=== PATIENT | male | born 1950 | race Caucasian/White ===

== ENCOUNTER 2018-08-08 09:55 | Day surgery (SDC) | payer OTHER ==
[2018-08-03 11:11] VITALS: BMI 23.0
[~2018-08-08 09:55] MED LIST: LACTATED RINGERS 1,000 ML IV SCH; LIDOCAINE 1% 20 ML VIAL (10MG/ML) FOR IV START INTRADERMA PRN
[2018-08-08 10:21] VITALS: TEMP 97.9
[2018-08-08] MEDS ORDERED: PROPOFOL 10 MG/ML 20 ML VIAL IV ONE (10:21)
[2018-08-08] MEDS ORDERED: MIDAZOLAM 2 MG/2 ML VIAL ONE (10:21)
[2018-08-08] MEDS ORDERED: LIDOCAINE 1% INJ 10MG/ML (20 ML MDV) ONE (10:21)
--- NOTE | 2018-08-08 10:43 | P.PCN ---
Date of Procedure: 08/08/18 Procedure(s) Performed: Procedure: Total colonoscopy. Preoperative diagnosis: Screening for neoplasia, patient has history of polyps. Postoperative diagnosis: Diverticulosis with no evidence of acute diverticulitis , strictures, polyps or cancer. Preparation: HalfLytely prep. Sedation: Was provided by anesthesia. Brief clinical history: The patient is a 68-year-old male who is scheduled for this evaluation for screening for neoplasia because of history of polyps. His last exam was around 5 years ago. The patient has no abdominal complaints, bleeding or anemia. Procedure: With the patient on his left lateral decubitus position and after informed consent and adequate sedation, the perianal area was inspected and it did not show any fissures or fistulas. There were no masses felt on digital rectal examination. The Olympus CFH 190L video colonoscope was then inserted in the rectum in the usual fashion and advanced to the cecum. There were multiple diverticular orifices seen scattered along the length of the bowel wall more so on the left side with no evidence of acute diverticulitis or strictures. No polyps or tumors were seen. The mucosa appeared healthy. I retroflexed the endoscope in the rectum before the endoscope was withdrawn. The patient tolerated the procedure well. Plan: The patient was reassured. Discussed dietary measures. He will follow up with you as planned and I recommended repeat exam in 5 years.
[2018-08-08 10:44] VITALS: RESP 16
[2018-08-08 11:02] VITALS: BP 126/87; PULSE 72
== END 2018-08-08 11:40 | disposition home or self-care (01) ==
LOC: ORWHC2ENDO 09:55
DX: Z12.11 Encounter for screening for malignant neoplasm of colon (principal); K57.30 Diverticulosis of large intestine without perforation or abscess without bleeding; Z86.010 Personal history of colon polyps; I10 Essential (primary) hypertension; E78.5 Hyperlipidemia, unspecified; I25.10 Atherosclerotic heart disease of native coronary artery without angina pectoris; I25.2 Old myocardial infarction; Z95.5 Presence of coronary angioplasty implant and graft; F17.210 Nicotine dependence, cigarettes, uncomplicated; Z79.899 Other long term (current) drug therapy
CPT/HCPCS: J2250; J2001; J2704; G0105

== ENCOUNTER → 2019-07-28 | Outpatient (CLI) | payer OTHER ==
--- NOTE | 2019-08-02 12:31 | P.ARTDOP ---
Arterial Doppler LOWER EXTREMITY ARTERIAL DOPPLER: DATE OF SERVICE: 07/28/2019 Reason for study: Bilateral foot pain with walking. Doppler waveforms: Multiphasic throughout on the right and blunted but down to the posterior tibial on the left. With the dorsalis pedis being atypical. Pulse volume recording: Digital waveforms are severely blunted. Pressure gradients: Mild distal gradient on the right and across the knee on the left with moderate infrapopliteal gradient on the left. Ankle-brachial indices: 0.93 on the right and 0.7 on the left. Toe pressures: [] on the right, 49 on the left Impression: Either mild to moderate distal disease on the left and mild disease on the right. Possible vasospastic component. Clinical correlation recomm ended..
== END | disposition home or self-care (01) ==
LOC: RADUSWWP 07:55
DX: I73.9 Peripheral vascular disease, unspecified (principal); Z87.891 Personal history of nicotine dependence
CPT/HCPCS: 93923

== ENCOUNTER 2020-12-10 16:03 | Emergency (ER) | payer OTHER ==
[2020-12-10 16:11] VITALS: RESP 18
[2020-12-10] MEDS ORDERED: SODIUM CHLORIDE 0.9% 1,000 ML IV STA (16:27)
[2020-12-10] MEDS ORDERED: ALBUTEROL HFA INHALER INHALATION STA (16:27)
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
[2020-12-10 18:00] LABS: Basophils # (A) 0.1 k/uL (0-0.2); Basophils % (A) 1 %; Eosinophils % (A) 0 %; HCT 49.9 % (39.0-53.0); HGB 16.9 gm/dL (13.0-17.5); Lymphocytes # (A) 1.5 k/uL (1.0-4.8); Lymphocytes % (A) 17 %; MCH 28.8 pg (25.0-35.0); MCHC 33.8 g/dL (31.0-37.0); MCV 85.2 fL (80.0-100.0); Mean Platelet Volume 8.4; Monocytes # (A) 0.4 k/uL (0-1.0); Monocytes % (A) 5 %; Neutrophils # (A) 6.7 k/uL (1.3-7.7); Neutrophils % (A) 76 %; Platelet Count 219 k/uL (150-450); RBC 5.85 m/uL (4.30-5.90); RDW 14.2 % (11.5-15.5); WBC 8.8 k/uL (3.8-10.6)
[2020-12-10 18:08] LABS: Albumin 3.3 g/dL (3.5-5.0); Calcium 8.3 mg/dL (8.4-10.2); Magnesium 1.6 mg/dL (1.6-2.3); Potassium 4.6 mmol/L (3.5-5.1); Total Bilirubin 0.6 mg/dL (0.2-1.3); Total Protein 6.4 g/dL (6.3-8.2)
--- NOTE | 2020-12-10 18:14 | XR ---
EXAMINATION TYPE: XR chest 2V DATE OF EXAM: 12/10/2020 COMPARISON: 11/07/2014. HISTORY: Fever and positive Covid. TECHNIQUE: Frontal and lateral views of the chest are obtained. FINDINGS: There is mild to moderate perihilar and bibasilar streaky opacities, most notable in the l eft lung base. No significant pleural effusion, or pneumothorax seen. The cardiac silhouette size is within normal limits. The osseous structures are intact. IMPRESSION: Mild to moderate opacities, concerning for infiltrates.
[2020-12-10 18:18] LABS: Partial Thromboplastin Time 25.9 sec (22.0-30.0); Prothrombin Time 10.3 sec (9.0-12.0)
[2020-12-10] MEDS ORDERED: ACETAMINOPHEN TAB 500 MG TAB PO STA (18:18)
[2020-12-10] MEDS: SODIUM CHLORIDE 0.9% 500 ML 500 ML IV STA ×2 (18:22→18:25)
--- NOTE | 2020-12-10 19:37 | CT ---
EXAMINATION TYPE: CT angio chest DATE OF EXAM: 12/10/2020 7:22 PM COMPARISON: Same day radiographs. HISTORY: Elevated d-dimer. Covid +. CT DLP: 378.7 mGycm Automated exposure control for dose reduction was used. CONTRAST: CTA scan of the thorax is performed with IV Contrast, patient injected with 100 mL of Isovue 370, pul monary embolism protocol. MIP images are created and reviewed. FINDINGS: LUNGS: There is bilateral diffuse moderate patchy ground glass opacities with random pattern. There is no pleural effusion or pneumothorax seen. The tracheobronchial tree is patent. MEDIASTINUM: There is satisfactory enhancement of the pulmonary artery and its branches, there is no CT evidence for pulmonary embolism. There are no greater than 1 cm hilar or mediastinal lymph nodes. No pericardial effusion is seen. Scattered small mediastinal lymph nodes seen. OTHER: No additional significant abnormality is seen. IMPRESSION: DIFFUSE PATCHY GROUND GLASS OPACITIES, CONSISTENT WITH HISTORY OF COVID PNEUMONIA. NO ACUTE PE.
[2020-12-10] MEDS ORDERED: AZITHROMYCIN 500 MG TAB PO STA (20:19)
[2020-12-10 20:37] VITALS: BP 131/85; PULSE 72; TEMP 98.6
== END 2020-12-10 20:45 | disposition home or self-care (01) ==
LOC: EC 16:03
DX: J18.9 Pneumonia, unspecified organism (principal); J98.01 Acute bronchospasm; E78.5 Hyperlipidemia, unspecified; F32.9 Major depressive disorder, single episode, unspecified; I10 Essential (primary) hypertension; I25.2 Old myocardial infarction; Z79.82 Long term (current) use of aspirin; Z95.5 Presence of coronary angioplasty implant and graft; U07.1 COVID-19
CPT/HCPCS: 36415; 94640; 93005; 85379; 83880; 80053; 82550; 83605; 83735; 84484; 85025; 85610; 85730; 87040; 71046; 71275; 99285; 96360; Q9967

== ENCOUNTER 2021-05-12 08:58 | Inpatient (IN) | payer OTHER, MEDICARE ==
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
[2021-05-12 11:12] LABS: HCT 48.7 % (39.0-53.0); HGB 16.6 gm/dL (13.0-17.5); Hyperchromasia Slight; MCH 29.7 pg (25.0-35.0); MCV 87.3 fL (80.0-100.0); Mean Platelet Volume 9.3; Platelet Count 266 k/uL (150-450); RBC 5.57 m/uL (4.30-5.90); RDW 14.5 % (11.5-15.5); WBC 24.5 k/uL (3.8-10.6)
[2021-05-12 13:11] LABS: INR 1.1 (<1.2); Prothrombin Time 11.6 sec (9.0-12.0)
[2021-05-12 13:14] LABS: Albumin 3.8 g/dL (3.5-5.0); Calcium 9.2 mg/dL (8.4-10.2); Total Bilirubin 2.2 mg/dL (0.2-1.3); Total Protein 7.3 g/dL (6.3-8.2)
[2021-05-12 13:15] LABS: Potassium 5.2 mmol/L (3.5-5.1)
[2021-05-12] MEDS ORDERED: SODIUM CHLORIDE 0.9% 1,000 ML IV ONE ×2 (13:17→14:43)
[2021-05-12 13:21] LABS: Band Neutrophils % 10 %; Lymphocytes # (M) 0.49 k/uL (1.0-4.8); Monocytes # (M) 0.74 k/uL (0-1.0); Neutrophils % (M) 85 %; Nucleated Red Blood Cells 0 /100 WBC (0-0); Total Cells Counted 100
--- NOTE | 2021-05-12 13:48 | XR ---
EXAMINATION TYPE: XR chest 2V DATE OF EXAM: 05/12/2021 COMPARISON: 12/10/2020 HISTORY: Shortness of breath TECHNIQUE: Frontal and lateral views of the chest are obtained. FINDINGS: Scattered senescent parenchymal changes noted. Hyperinflation compatible with COPD. Increased basilar lung markings persist essentially unchanged. No definite focal pneumonia at this ti me. Correlate clinically however. Heart size is stable. Mediastinal structures are stable and grossly unremarkable. No evidence for hilar prominence. Degenerative changes dorsal spine. IMPRESSION: 1. Increased basilar lung markings persist essentially unchanged. No definite focal pneumonia at this time. Correlate clinically however.
[2021-05-12 13:52] LABS: Partial Thromboplastin Time 21.6 sec (22.0-30.0)
--- NOTE | 2021-05-12 14:51 | CT ---
EXAMINATION TYPE: CT angio lower extremity BILAT DATE OF EXAM: 05/12/2021 COMPARISON: None HISTORY: Peripheral vascular disease, ischemic changes. CT DLP: 1299.4 mGycm CONTRAST: CTA thoracic and abdominal aorta with 3-D reconstruction is performed and with IV Contrast, patient i njected with 80 mL of Isovue 370. Contrast CTA of the abdominal aorta with runoff of the lower extremity arterial system was performed from the lung bases through the ankles and feet. 3-D reconstruction imaging obtained at a separate wo rkstation. ABDOMINAL AORTA: Mild atheromatous change noted without evidence for aneurysm. No dissection seen. Iliac vessels: Mild atheromatous change common iliac, internal iliac and external iliac arteries with out evidence for hemodynamically significant stenosis. Femoral arteries: Common femoral arteries and profunda femoris arteries are patent bilaterally. Mild scattered atheromatous change noted. Popliteal arteries: Calcific plaque bilateral popliteal arteries left greater than right. Estimated 5 0% stenosis left popliteal artery. Below the knee arteries: There is moderate plaque disease at the bilateral trifurcations greater than 70% stenosis on the right and approximately 50% stenosis on the left. There is limited visualization of the anterior tibial, posterior tibial and peroneal arteries bilaterally. LIVER/GB- No significant abnormality is seen. PANCREAS- No significant abnormality is seen. SPLEEN- No significant abnormality is seen. ADRENALS- No significant abnormality is seen. KIDNEYS/BLADDER- No significant abnormality is seen. BOWEL- No Significant abnormality GENITAL ORGANS: No gross abnormality seen. LYMPH NODES- No greater than 1cm abdominal or pelvic lymph nodes are appreciated. OSSEOUS STRUCTURES- No significant abnormality is seen. OTHER- No significant abnormality is seen. IMPRESSION- 1. There is moderate plaque disease at the bilateral trifurcations greater than 70% stenosis on the r ight and approximately 50% stenosis on the left. There is limited visualization of the anterior tibia l, posterior tibial and peroneal arteries bilaterally.
[2021-05-12] MEDS ORDERED: NALOXONE 0.4 MG/ML 1 ML VIAL IV PRN (15:35)
[2021-05-12] MEDS ORDERED: ONDANSETRON 4 MG/2 ML VIAL IVP PRN (15:35)
[2021-05-12] MEDS ORDERED: ALBUTEROL NEBULIZED 2.5 MG/3 ML INHALATION PRN (16:05)
[2021-05-12 16:56] LABS: Appearance,Urine Clear (Clear); Bilirubin,Urine Negative (Negative); Blood,Urine Moderate (Negative); Color,Urine Yellow; Glucose,Urine (UA) Negative (Negative); Ketones,Urine Negative (Negative); Leukocyte Esterase,Urine Trace (Negative); Mucus,Urine Rare /hpf; Nitrite,Urine Negative (Negative); PH, Urine 5.5 (5.0-8.0); Protein,Urine 1+ (Negative); RBC,Urine 110 /hpf (0-5); Squamous Epithelial Cell,Urine <1 /hpf (0-4); Urobilinogen,Urine <2.0 mg/dL (<2.0); WBC,Urine 4 /hpf (0-5)
[2021-05-12 16:57] LABS: Specific Gravity,Urine >1.050 (1.001-1.035)
--- NOTE | 2021-05-12 17:25 | CT ---
EXAM: CT brain wo con CLINICAL HISTORY: Altered mental status. COMPARISON: None TECHNIQUE: Contiguous axial noncontrast images of the brain were obtained. Coronal and sagittal refor mats were generated and reviewed. Automated dose control was used for this exam. FINDINGS: There is mild opacification of the vessels, related to recent contrast administration. There is no evidence for intracranial hemorrhage, mass effect or midline shift. The white matter is g rossly preserved. Ventricular size and configuration is within normal limits for degree of parenchymal volume. The paranasal sinuses noted to moderate mucosal thickening of the left maxillary sinus. The mastoid a ir cells are clear. No evidence for calvarial fracture. IMPRESSION: No acute intracranial abnormality.
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
[2021-05-12 20:04] LABS: Basophils # (A) 0.1 k/uL (0-0.2); Basophils % (A) 0 %; Eosinophils % (A) 0 %; HCT 49.6 % (39.0-53.0); HGB 16.5 gm/dL (13.0-17.5); Lymphocytes # (A) 0.8 k/uL (1.0-4.8); Lymphocytes % (A) 4 %; MCH 29.7 pg (25.0-35.0); MCHC 33.3 g/dL (31.0-37.0); MCV 89.2 fL (80.0-100.0); Mean Platelet Volume 7.9; Monocytes # (A) 0.7 k/uL (0-1.0); Monocytes % (A) 3 %; Neutrophils # (A) 20.2 k/uL (1.3-7.7); Neutrophils % (A) 92 %; Platelet Count 240 k/uL (150-450); RBC 5.56 m/uL (4.30-5.90); RDW 14.3 % (11.5-15.5); WBC 21.8 k/uL (3.8-10.6)
[2021-05-12 20:16] LABS: African American GFR (CKD) 63 (>60 ml/min/1.73 sqM); Anion Gap 9 mmol/L; Blood Urea Nitrogen 22 mg/dL (9-20); Calcium 8.4 mg/dL (8.4-10.2); Carbon Dioxide 20 mmol/L (22-30); Chloride 101 mmol/L (98-107); Glucose 114 mg/dL (74-99); Non-African American GFR(CKD) 55 (>60 ml/min/1.73 sqM); Potassium 4.5 mmol/L (3.5-5.1); Sodium 130 mmol/L (137-145)
[2021-05-12] MEDS: SODIUM CHLORIDE 0.9% 1,000 ML IV SCH (20:27)
[2021-05-12 20:28] LABS: C Reactive Protein 19.6 mg/dL (<1.0)
[2021-05-12] MEDS: HYDROcodone/APAP 5-325MG 1 EACH TAB PO PRN (20:29)
[2021-05-12] MEDS ORDERED: ACYCLOVIR SODIUM 800 MG in SODIUM CHLORIDE 0.9% 100 ML IVPB SCH (20:30)
[2021-05-12] MEDS ORDERED: VANCOMYCIN IV PER PHARMACY 1 EACH MISC MISCELLANE PRN (21:59)
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
[2021-05-12] MEDS: FAMOTIDINE 20 MG/2 ML VIAL IV SCH (22:30)
[2021-05-13] MEDS: HYDROcodone/APAP 5-325MG 1 EACH TAB PO PRN ×2 (00:35→04:55)
[2021-05-13] MEDS: SODIUM CHLORIDE 0.9% 1,000 ML IV SCH ×5 (01:08→15:19)
[2021-05-13 01:11] LABS: Amphetamine Screen,Urine Detected (NotDetected); Barbiturate Screen,Urine Not Detected (NotDetected); Benzodiazepines Screen,Urine Not Detected (NotDetected); Cocaine Screen,Urine Not Detected (NotDetected); Methadone Screen, Urine Not Detected (NotDetected); Opiate Screen,Urine Not Detected (NotDetected); Oxycodone Screen, Urine Not Detected (NotDetected); Phencyclidine Screen,Urine Not Detected (NotDetected); Tricyclic Antidepressant,Urine Not Detected (NotDetected); Urn Cannabinoid Scrn Detected (NotDetected)
[2021-05-13] MEDS: VANCOMYCIN 1,500 MG in SODIUM CHLORIDE 0.9% 250 ML IVPB SCH ×2 (01:14→15:18)
--- NOTE | 2021-05-13 01:15 | US ---
EXAMINATION TYPE: US carotid duplex BILAT DATE OF EXAM: 05/13/2021 COMPARISON: CT CLINICAL HISTORY: ams, MCDONALD, PAD, rule out Carotid stenosis. AMS, MCDONALD per order. EXAM MEASUREMENTS: RIGHT: Peak Systolic Velocity (PSV) cm/sec ----- Right CCA: 51.4 ----- Right ICA: 66.0 ----- Right ECA: 67.7 ICA/CCA ratio: 1.3 RIGHT: End Diastole cm/sec ----- Right CCA: 0.0 ----- Right ICA: 6.6 ----- Right ECA: 7.3 LEFT: Peak Systolic Velocity (PSV) cm/sec ----- Left CCA: 59.2 ----- Left ICA: 82.0 ----- Left ECA: 45.3 ICA/CCA ratio: 1.4 LEFT: End Diastole cm/sec ----- Left CCA: 6.9 ----- Left ICA: 9.5 ----- Left ECA: 4.0 VERTEBRALS (direction of flow): Right Vertebral: Unable to visualize at this time. Left Vertebral: Antegrade Rhythm: Arrhythmia No elevated velocities at this time. Plaque seen within bilateral carotid bulbs. Exam is very limited due to constant patient movement. IMPRESSION: There is antegrade flow in the vertebral arteries. The images and measurements suggest less than 25% stenosis in both internal carotid arteries. Criteria for Assigning % of Stenosis / Diameter reduction (Estimation based on the indirect measurements of the internal carotid artery velocities (ICA PSV). 1. Normal (no stenosis)=ICA PSV < 125 cm/s: ratio < 2.0: ICA EDV<40 cm/s. 2. Less than 50% stenosis=ICA PSV < 125 cm/s: ratio < 2.0: ICA EDV<40 cm/s. 3. 50 to 69% stenosis=ICA PSV of 125 to 230 cm/s: ration 2.0 ? 4.0: ICA EDV 40-100 cm/s. 4. Greater than 70% stenosis to near occlusion= ICA PSV > 230 cm/s: ratio > 4.0: ICA EDV > 100 cm/s. 5. Near occlusion= ICA PSV velocities may be low or undetectable: variable ratio and ICA EDV. 6. Total occlusion=unable to detect flow.
[2021-05-13] MEDS ORDERED: LORazepam 2 MG/ML INJ IV PRN (01:48)
[2021-05-13] MEDS ORDERED: SODIUM CHLORIDE 0.9% 500 ML 500 ML IV ONE ×2 (01:50→05:00)
[2021-05-13] MEDS: ACYCLOVIR SODIUM 800 MG in SODIUM CHLORIDE 0.9% 100 ML IVPB SCH ×2 (05:13→15:18)
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
[2021-05-13 07:32] LABS: Glucose,Whole Blood 144 mg/dL (75-99)
[2021-05-13] MEDS: FAMOTIDINE 20 MG/2 ML VIAL IV SCH ×2 (08:42→20:27)
[2021-05-13 08:47] LABS: ABG Base Excess -3.2 mmol/L; ABG HCO3 20 mmol/L (21-25); ABG Oxygen Saturation 95.9 % (94-97); ABG PCO2 27 mmHg (35-45); ABG PH 7.48 (7.35-7.45); ABG PO2 70 mmHg (83-108); ABG TCO2 21 mmol/L (19-24); Allen Test Performed? Yes
--- NOTE | 2021-05-13 09:04 | XR ---
EXAMINATION TYPE: XR chest 1V DATE OF EXAM: 05/13/2021 COMPARISON: 05/12/2021 HISTORY: 70 year-old male shortness of breath TECHNIQUE: Single frontal view of the chest is obtained. FINDINGS: Heart upper limits of normal in size. Interstitial changes bilaterally and patchy mid and lower lung opacities. IMPRESSION: Interstitial densities and patchy mid and lower lung infiltrates. Correlate for multifocal pneumonia including COVID pneumonia. Correlate with fluid overload state to exclude pulmonary vascular congesti on. Other inflammatory etiologies such as hypersensitivity pneumonitis or interstitial pneumonitis ar e other possibilities.
[2021-05-13 09:18] LABS: Basophils % (A) 0 %; Eosinophils % (A) 0 %; HCT 50.5 % (39.0-53.0); HGB 17.2 gm/dL (13.0-17.5); Lymphocytes % (A) 4 %; MCH 30.4 pg (25.0-35.0); MCHC 34.1 g/dL (31.0-37.0); MCV 89.1 fL (80.0-100.0); Mean Platelet Volume 7.8; Monocytes # (A) 1.2 k/uL (0-1.0); Monocytes % (A) 5 %; Neutrophils # (A) 23.9 k/uL (1.3-7.7); Neutrophils % (A) 90 %; Platelet Count 188 k/uL (150-450); RBC 5.66 m/uL (4.30-5.90); RDW 14.6 % (11.5-15.5); WBC 26.6 k/uL (3.8-10.6)
[2021-05-13] MEDS ORDERED: DEXAMETHASONE SOD PHOSPHATE 10 MG/ML 1 ML VIAL IV STA (09:18)
[2021-05-13 09:34] LABS: ALT 22 U/L (4-49); African American GFR (CKD) 73 (>60 ml/min/1.73 sqM); Albumin 3.3 g/dL (3.5-5.0); Anion Gap 13 mmol/L; Blood Urea Nitrogen 22 mg/dL (9-20); Calcium 8.5 mg/dL (8.4-10.2); Carbon Dioxide 20 mmol/L (22-30); Chloride 101 mmol/L (98-107); Globulin 3.4 g/dL; Glucose 126 mg/dL (74-99); Non-African American GFR(CKD) 63 (>60 ml/min/1.73 sqM); Sodium 134 mmol/L (137-145); Total Bilirubin 1.8 mg/dL (0.2-1.3); Total Protein 6.7 g/dL (6.3-8.2)
[2021-05-13 09:46] LABS: AST 58 U/L (17-59); Alkaline Phosphatase 69 U/L (38-126); Magnesium 1.7 mg/dL (1.6-2.3)
[2021-05-13 09:50] LABS: Potassium 4.6 mmol/L (3.5-5.1)
[2021-05-13 09:53] LABS: Glucose,Whole Blood 125 mg/dL (75-99)
--- NOTE | 2021-05-13 11:29 | P.PCN ---
Date of Procedure: 05/13/21 Surgeon: Zia Harrison Condition: critical Disposition: ICU Description of Procedure: diagnosis rule out meningitis Description of procedure: The patient was seen in the ICU. The patient has mental status changes with fever and leukocytosis. Anesthesia services were asked to do an LP urgently to rule out meningitis. The patient used to be on Plavix however he is noncompliant as per his sister. The the date of last dose of Plavix is not known. The patient was placed in the left lateral decubitus position, skin was prepped with DuraPrep and draped in a sterile manner. Lidocaine 1% was used to numb the skin up at the entry site which was at the L4 5 level in the right paramedian approach. I used 22-gauge 3-1/2 inch Quincke spinal needle for this procedure. One attempt only as needed to get into the intrathecal space. The cerebrospinal fluid was flowing spontaneously. The cerebrospinal fluid looks cloudy. Opening pressure is high at 47 cm of water. 4 tests tubes were used to obtain 2 MLS of cerebrospinal fluid in each test tube. The spinal needle then was taken out and a Band-Aid was placed at the skin entry site. Patient tolerated procedure well.
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
[2021-05-13 12:14] LABS: Appearance,Urine Clear (Clear); Bilirubin,Urine Negative (Negative); Blood,Urine Moderate (Negative); Color,Urine Yellow; Glucose,Urine (UA) Negative (Negative); Ketones,Urine 1+ (Negative); Leukocyte Esterase,Urine Negative (Negative); Mucus,Urine Rare /hpf; Nitrite,Urine Negative (Negative); PH, Urine 5.5 (5.0-8.0); Protein,Urine 1+ (Negative); RBC,Urine 18 /hpf (0-5); Specific Gravity,Urine 1.018 (1.001-1.035); Squamous Epithelial Cell,Urine <1 /hpf (0-4); Urobilinogen,Urine <2.0 mg/dL (<2.0); WBC,Urine 2 /hpf (0-5)
--- NOTE | 2021-05-13 12:20 | P.PN ---
Subjective Progress Note Date: 05/13/21 Patient was seen for a follow-up. Patient now transferred to ICU. Patient had undergone lumbar puncture today. It was cloudy. Patient's blood culture also positive for gram-positive cocci. Patient continues to complain of severe headache. Patient continues to be encephalopathic. Objective - Vital Signs Vital signs: Vital Signs Temp 99.1 F 05/13/21 07:23 Pulse 87 05/13/21 08:20 Resp 36 H 05/13/21 08:20 BP 150/92 05/13/21 08:20 Pulse Ox 91 L 05/13/21 08:55 Intake & Output 05/12/21 05/13/21 05/13/21 18:59 06:59 18:59 Intake Total 1130 Output Total 768 1300 Balance 362 -1300 Weight 79.379 kg 79.379 kg Intake: Intake, IV Titration 1130 Amount Acyclovir Sodium 800 mg 250 In Sodium Chloride 0.9% 100 ml @ 100 mls/hr IVPB Q8H [facility] Rx#:[id number] Sodium Chloride 0.9% 500 100 ml 500 ml @ 999 mls/hr IV .Q31M ONE Rx#:[id number] cefTRIAXone 2 gm In 780 Sodium Chloride 0.9% 50 ml @ 100 mls/hr IVPB Q24HR [facility] Rx#:[id number] Output: Urine 600 1300 Post Void Residual 168 Other: Voiding Method Indwelling Catheter - Exam Patient is encephalopathic. Complains of severe headache. Passive head movement produces severe headache. - Labs CBC & Chem 7: 05/13/21 09:10 05/13/21 09:10 Labs: Abnormal Lab Results - Last 24 Hours (Table) 05/12/21 05/12/21 05/12/21 Range/Units 10:51 11:54 11:54 WBC (3.8-10.6) k/uL Neutrophils # (1.3-7.7) k/uL Neutrophils # (Manual) 23.20 H (1.3-7.7) k/uL Lymphocytes # (1.0-4.8) k/uL Lymphocytes # (Manual) 0.49 L (1.0-4.8) k/uL Monocytes # (0-1.0) k/uL APTT (22.0-30.0) sec ABG pH (7.35-7.45) ABG pCO2 (35-45) mmHg ABG pO2 (83-108) mmHg ABG HCO3 (21-25) mmol/L Sodium 131 L (137-145) mmol/L Potassium 5.2 H (3.5-5.1) mmol/L Carbon Dioxide 20 L (22-30) mmol/L BUN 22 H (9-20) mg/dL Creatinine 1.50 H (0.66-1.25) mg/dL Glucose 115 H (74-99) mg/dL POC Glucose (mg/dL) (75-99) mg/dL Plasma Lactic Acid Lv 2.9 H* (0.7-2.0) mmol/L Total Bilirubin 2.2 H (0.2-1.3) mg/dL C-Reactive Protein (<1.0) mg/dL Albumin (3.5-5.0) g/dL Procalcitonin (0.02-0.09) ng/mL Ur Specific [place] (1.001-1.035) Urine Protein (Negative) Urine Ketones (Negative) Urine Blood (Negative) Ur Leukocyte Esterase (Negative) Urine RBC (0-5) /hpf Urine Mucus (None) /hpf Ur Amphetamines Screen (NotDetected) U Methamphetamines Scrn (NotDetected) U Marijuana (THC) Screen (NotDetected) 05/12/21 05/12/21 05/12/21 Range/Units 12:48 15:21 16:31 WBC (3.8-10.6) k/uL Neutrophils # (1.3-7.7) k/uL Neutrophils # (Manual) (1.3-7.7) k/uL Lymphocytes # (1.0-4.8) k/uL Lymphocytes # (Manual) (1.0-4.8) k/uL Monocytes # (0-1.0) k/uL APTT 21.6 L (22.0-30.0) sec ABG pH (7.35-7.45) ABG pCO2 (35-45) mmHg ABG pO2 (83-108) mmHg ABG HCO3 (21-25) mmol/L Sodium (137-145) mmol/L Potassium (3.5-5.1) mmol/L Carbon Dioxide (22-30) mmol/L BUN (9-20) mg/dL Creatinine (0.66-1.25) mg/dL Glucose (74-99) mg/dL POC Glucose (mg/dL) (75-99) mg/dL Plasma Lactic Acid Lv 2.3 H* (0.7-2.0) mmol/L Total Bilirubin (0.2-1.3) mg/dL C-Reactive Protein (<1.0) mg/dL Albumin (3.5-5.0) g/dL Procalcitonin (0.02-0.09) ng/mL Ur Specific [place] >1.050 H (1.001-1.035) Urine Protein 1+ H (Negative) Urine Ketones (Negative) Urine Blood Moderate H (Negative) Ur Leukocyte Esterase Trace H (Negative) Urine RBC 110 H (0-5) /hpf Urine Mucus Rare H (None) /hpf Ur Amphetamines Screen (NotDetected) U Methamphetamines Scrn (NotDetected) U Marijuana (THC) Screen (NotDetected) 05/12/21 05/12/21 05/12/21 Range/Units 19:59 19:59 19:59 WBC 21.8 H (3.8-10.6) k/uL Neutrophils # 20.2 H (1.3-7.7) k/uL Neutrophils # (Manual) (1.3-7.7) k/uL Lymphocytes # 0.8 L (1.0-4.8) k/uL Lymphocytes # (Manual) (1.0-4.8) k/uL Monocytes # (0-1.0) k/uL APTT (22.0-30.0) sec ABG pH (7.35-7.45) ABG pCO2 (35-45) mmHg ABG pO2 (83-108) mmHg ABG HCO3 (21-25) mmol/L Sodium 130 L (137-145) mmol/L Potassium (3.5-5.1) mmol/L Carbon Dioxide 20 L (22-30) mmol/L BUN 22 H (9-20) mg/dL Creatinine 1.33 H (0.66-1.25) mg/dL Glucose 114 H (74-99) mg/dL POC Glucose (mg/dL) (75-99) mg/dL Plasma Lactic Acid Lv 2.3 H* (0.7-2.0) mmol/L Total Bilirubin (0.2-1.3) mg/dL C-Reactive Protein 19.6 H (<1.0) mg/dL Albumin (3.5-5.0) g/dL Procalcitonin (0.02-0.09) ng/mL Ur Specific [place] (1.001-1.035) Urine Protein (Negative) Urine Ketones (Negative) Urine Blood (Negative) Ur Leukocyte Esterase (Negative) Urine RBC (0-5) /hpf Urine Mucus (None) /hpf Ur Amphetamines Screen (NotDetected) U Methamphetamines Scrn (NotDetected) U Marijuana (THC) Screen (NotDetected) 05/12/21 05/12/21 05/13/21 Range/Units 19:59 23:25 00:40 WBC (3.8-10.6) k/uL Neutrophils # (1.3-7.7) k/uL Neutrophils # (Manual) (1.3-7.7) k/uL Lymphocytes # (1.0-4.8) k/uL Lymphocytes # (Manual) (1.0-4.8) k/uL Monocytes # (0-1.0) k/uL APTT (22.0-30.0) sec ABG pH (7.35-7.45) ABG pCO2 (35-45) mmHg ABG pO2 (83-108) mmHg ABG HCO3 (21-25) mmol/L Sodium (137-145) mmol/L Potassium (3.5-5.1) mmol/L Carbon Dioxide (22-30) mmol/L BUN (9-20) mg/dL Creatinine (0.66-1.25) mg/dL Glucose (74-99) mg/dL POC Glucose (mg/dL) (75-99) mg/dL Plasma Lactic Acid Lv 4.9 H* (0.7-2.0) mmol/L Total Bilirubin (0.2-1.3) mg/dL C-Reactive Protein (<1.0) mg/dL Albumin (3.5-5.0) g/dL Procalcitonin 1.70 H (0.02-0.09) ng/mL Ur Specific [place] (1.001-1.035) Urine Protein (Negative) Urine Ketones (Negative) Urine Blood (Negative) Ur Leukocyte Esterase (Negative) Urine RBC (0-5) /hpf Urine Mucus (None) /hpf Ur Amphetamines Screen Detected H (NotDetected) U Methamphetamines Scrn Detected H (NotDetected) U Marijuana (THC) Screen Detected H (NotDetected) 05/13/21 05/13/21 05/13/21 Range/Units 05:00 07:31 08:19 WBC (3.8-10.6) k/uL Neutrophils # (1.3-7.7) k/uL Neutrophils # (Manual) (1.3-7.7) k/uL Lymphocytes # (1.0-4.8) k/uL Lymphocytes # (Manual) (1.0-4.8) k/uL Monocytes # (0-1.0) k/uL APTT (22.0-30.0) sec ABG pH (7.35-7.45) ABG pCO2 (35-45) mmHg ABG pO2 (83-108) mmHg ABG HCO3 (21-25) mmol/L Sodium (137-145) mmol/L Potassium (3.5-5.1) mmol/L Carbon Dioxide (22-30) mmol/L BUN (9-20) mg/dL Creatinine (0.66-1.25) mg/dL Glucose (74-99) mg/dL POC Glucose (mg/dL) 144 H (75-99) mg/dL Plasma Lactic Acid Lv 5.5 H* 6.0 H* (0.7-2.0) mmol/L Total Bilirubin (0.2-1.3) mg/dL C-Reactive Protein (<1.0) mg/dL Albumin (3.5-5.0) g/dL Procalcitonin (0.02-0.09) ng/mL Ur Specific [place] (1.001-1.035) Urine Protein (Negative) Urine Ketones (Negative) Urine Blood (Negative) Ur Leukocyte Esterase (Negative) Urine RBC (0-5) /hpf Urine Mucus (None) /hpf Ur Amphetamines Screen (NotDetected) U Methamphetamines Scrn (NotDetected) U Marijuana (THC) Screen (NotDetected) 05/13/21 05/13/21 05/13/21 Range/Units 08:44 09:10 09:10 WBC 26.6 H (3.8-10.6) k/uL Neutrophils # 23.9 H (1.3-7.7) k/uL Neutrophils # (Manual) (1.3-7.7) k/uL Lymphocytes # (1.0-4.8) k/uL Lymphocytes # (Manual) (1.0-4.8) k/uL Monocytes # 1.2 H (0-1.0) k/uL APTT (22.0-30.0) sec ABG pH 7.48 H (7.35-7.45) ABG pCO2 27 L (35-45) mmHg ABG pO2 70 L (83-108) mmHg ABG HCO3 20 L (21-25) mmol/L Sodium 134 L (137-145) mmol/L Potassium (3.5-5.1) mmol/L Carbon Dioxide 20 L (22-30) mmol/L BUN 22 H (9-20) mg/dL Creatinine (0.66-1.25) mg/dL Glucose 126 H (74-99) mg/dL POC Glucose (mg/dL) (75-99) mg/dL Plasma Lactic Acid Lv (0.7-2.0) mmol/L Total Bilirubin 1.8 H (0.2-1.3) mg/dL C-Reactive Protein (<1.0) mg/dL Albumin 3.3 L (3.5-5.0) g/dL Procalcitonin (0.02-0.09) ng/mL Ur Specific [place] (1.001-1.035) Urine Protein (Negative) Urine Ketones (Negative) Urine Blood (Negative) Ur Leukocyte Esterase (Negative) Urine RBC (0-5) /hpf Urine Mucus (None) /hpf Ur Amphetamines Screen (NotDetected) U Methamphetamines Scrn (NotDetected) U Marijuana (THC) Screen (NotDetected) 05/13/21 05/13/21 Range/Units 09:51 11:20 WBC (3.8-10.6) k/uL Neutrophils # (1.3-7.7) k/uL Neutrophils # (Manual) (1.3-7.7) k/uL Lymphocytes # (1.0-4.8) k/uL Lymphocytes # (Manual) (1.0-4.8) k/uL Monocytes # (0-1.0) k/uL APTT (22.0-30.0) sec ABG pH (7.35-7.45) ABG pCO2 (35-45) mmHg ABG pO2 (83-108) mmHg ABG HCO3 (21-25) mmol/L Sodium (137-145) mmol/L Potassium (3.5-5.1) mmol/L Carbon Dioxide (22-30) mmol/L BUN (9-20) mg/dL Creatinine (0.66-1.25) mg/dL Glucose (74-99) mg/dL POC Glucose (mg/dL) 125 H (75-99) mg/dL Plasma Lactic Acid Lv (0.7-2.0) mmol/L Total Bilirubin (0.2-1.3) mg/dL C-Reactive Protein (<1.0) mg/dL Albumin (3.5-5.0) g/dL Procalcitonin (0.02-0.09) ng/mL Ur Specific [place] (1.001-1.035) Urine Protein 1+ H (Negative) Urine Ketones 1+ H (Negative) Urine Blood Moderate H (Negative) Ur Leukocyte Esterase (Negative) Urine RBC 18 H (0-5) /hpf Urine Mucus Rare H (None) /hpf Ur Amphetamines Screen (NotDetected) U Methamphetamines Scrn (NotDetected) U Marijuana (THC) Screen (NotDetected) Microbiology - Last 24 Hours (Table) 05/12/21 19:55 Blood Culture Gram Stain - Preliminary Blood 05/12/21 19:55 Blood Culture - Final Blood Assessment and Plan Assessment: * Acute (2 day history of) altered mental status, with severe cephalgia, fever and leukocytosis. Probable meningitis, rule out encephalitis. * Bacteremia with positive blood cultures gram-positive cocci. * Hyponatremia * Mild renal insufficiency * Peripheral arterial disease * Hypertension * Hyperlipidemia * Coronary artery disease Plan: * Patient underwent lumbar puncture, in which CSF is cloudy, opening pressure was 47 cm. Patient probably has meningitis. Further testing still pending. * Patient's blood culture positive for gram-positive cocci, therefore patient likely has meningitis. Continue ceftriaxone 2 g every 12 hours, meningeal dose. Patient also started on vancomycin. * Empirically start acyclovir at a dose of 10 mg/kg IV every 8 hours. * Appreciate Anesthesia input for lumbar puncture. * Patient has mild renal insufficiency. Need to watch the dose of acyclovir, and follow renal functions. * EEG still pending to evaluate for any epileptiform activity. * MRI of the brain with and without contrast. MRA of head rule out intracranial stenosis. * Carotid Doppler shows no carotid stenosis. Antegrade flow in vertebral arteries. * DVT prophylaxis as per IM. * Discussed with infectious disease and patient's sister in detail.
[2021-05-13 12:48] LABS: Glucose,CSF <20 mg/dL (40-70); Total Protein,CSF >600 mg/dL (12-60)
[2021-05-13 12:59] LABS: Appearance,CSF Clear; CSF Tube Volume 1.8
[2021-05-13 13:04] LABS: CSF Tube Number 4; Red Blood Cell,CSF 175 u/L (0-10)
[2021-05-13 13:06] LABS: Nucleated Cells, CSF 3350 u/L (0-5)
[2021-05-13 13:08] LABS: Diff, Total Cells Cnt, CSF 100; Mononuclear WBC,CSF 3 %; Polynuclear WBC,CSF 97 %; Red Blood Cell, CSF Fresh 100 %
--- NOTE | 2021-05-13 13:33 | P.PN ---
Subjective This is a pleasant 70 years old male with past medical history of Hyperlipidemia, Hypertension, tinnitus. Patient states that he fell last night when he was standing up trying to get to the bathroom. He still feels some nonspecific dizziness but denies loss of consciousness. He knows he is in the hospital but he could not tell which hospital, he thought it is 1999 2019 and time the president is Oswaldo. However during conversation patient goes back to sleep, he is easily arousable to verbal stimuli before he goes back to sleep shortly thereafter. He denies weakness or numbness in all 4 extremities and he moves them symmetrically. Patient complains from low back pain. And some mild neck pain but no neck stiffness. Patient is poor historian He denies chest pain or dyspnea. No abdominal pain. No diarrhea or vomiting. No urinary dysuria or increased frequency. Patient has fever on admission of 102.4 and blood pressure is borderline 105/58 This creatinine is 1.5, WBC 24.5, sodium 131, lactic acid 2.3 05/13/2021 Patient is still confused today. He denies any specific complaint however his significantly drowsy. Also his tachypnea. He received several doses of normal saline fluid during the night almost 3 L total his lactic acid still elevated at 6. A team was called because of high lactic acid. An repeat chest x-ray showing bilateral infiltrate, pH is 7.4, low pCO2 of 27 and low pO2 of 70. Most of the fluid management and abnormal chest x-ray pulmonary team were consulted who recommended to transfer the patient to the ICU. No fever today. His that HE still elevated at 26. Creatinine is back to normal. Sodium improved 134. Carotid duplex is negative. Blood culture is positive for gram-positive cocci. MRI and MRA of the brain is ordered by neurology team and is pending Lumbar puncture showing elevated pressure. Result is pending. Also patient has hematuria, renal ultrasound is ordered Patient is currently covered with ceftriaxone 2 g twice daily per ID team who also started him on IV vancomycin. Also patient is on acyclovir. IV fluid lower to 75 mL/h but continued per recommendation by pulmonary team. Monitor breathing function Keep holding home medication Review of systems: N/a Active Medications Generic Name Dose Route Start Last Admin Trade Name Freq PRN Reason Stop Dose Admin Acetaminophen 650 mg 05/12/21 15:35 Acetaminophen Tab 325 Mg Tab PO Q6HR PRN Mild Pain or Fever > 100.5 Hydrocodone Bitart/Acetaminophen 1 each 05/12/21 15:35 05/13/21 04:55 Hydrocodone/Apap 5-325mg 1 Each Tab PO 1 each Q4HR PRN Administration Moderate Pain Albuterol Sulfate 2.5 mg 05/12/21 16:05 Albuterol Nebulized 2.5 Mg/3 Ml INHALATION RT-QID PRN Shortness Of Breath Famotidine 20 mg 05/12/21 21:00 05/13/21 08:42 Famotidine 20 Mg/2 Ml Vial IV 20 mg Q12HR SEEMA Administration Sodium Chloride 1,000 mls @ 75 mls/hr 05/12/21 15:45 05/13/21 07:02 Saline 0.9% IV Not Given .[id number] SEEMA Ceftriaxone Sodium 2 gm/ 50 mls @ 100 mls/hr 05/13/21 09:00 05/13/21 08:42 Sodium Chloride IVPB 100 mls/hr Q12HR SEEMA Administration Vancomycin HCl 1,500 mg/ 250 mls @ 125 mls/hr 05/12/21 23:00 05/13/21 01:14 Sodium Chloride IVPB 125 mls/hr Q16H SEEMA Administration Acyclovir Sodium 800 mg/ 116 mls @ 100 mls/hr 05/13/21 06:00 05/13/21 05:13 Sodium Chloride IVPB 100 mls/hr Q8H SEEMA Administration Lorazepam 1 mg 05/13/21 01:48 05/13/21 01:55 Lorazepam 2 Mg/Ml Inj IV 1 mg Q4HR PRN Administration Anxiety Naloxone HCl 0.2 mg 05/12/21 15:35 Naloxone 0.4 Mg/Ml 1 Ml Vial IV Q2M PRN Opioid Reversal Ondansetron HCl 4 mg 05/12/21 15:35 Ondansetron 4 Mg/2 Ml Vial IVP Q8HR PRN Nausea And Vomiting Objective - Vital Signs Vital signs: Vital Signs Temp 98.4 F 05/13/21 12:00 Pulse 78 05/13/21 13:00 Resp 26 H 05/13/21 13:00 BP 141/81 05/13/21 13:00 Pulse Ox 94 L 05/13/21 13:00 Intake & Output 05/12/21 05/13/21 05/13/21 18:59 06:59 18:59 Intake Total 1130 260 Output Total 768 1575 Balance 362 -1315 Weight 79.379 kg 79.379 kg Intake: IV 260 Sodium Chloride 0.9% 1, 260 000 ml @ 130 mls/hr IV . Q7H42M [facility] Rx#:[id number] Intake, IV Titration 1130 Amount Acyclovir Sodium 800 mg 250 In Sodium Chloride 0.9% 100 ml @ 100 mls/hr IVPB Q8H [facility] Rx#:[id number] Sodium Chloride 0.9% 500 100 ml 500 ml @ 999 mls/hr IV .Q31M [facility] Rx#:[id number] cefTRIAXone 2 gm In 780 Sodium Chloride 0.9% 50 ml @ 100 mls/hr IVPB Q24HR [facility] Rx#:[id number] Output: Urine 600 1575 Post Void Residual 168 Other: Voiding Method Indwelling Catheter - Exam -GENERAL: The patient is confused and drowsy HEENT: Pupils are round and equally reacting to light. EOMI. No scleral icterus. No conjunctival pallor. Normocephalic, atraumatic. No pharyngeal erythema. No thyromegaly. CARDIOVASCULAR: S1 and S2 present. No murmurs, rubs, or gallops. -PULMONARY: Chest is clear to auscultation, no wheezing. The kidney The With bilateral crepitation ABDOMEN: Soft, nontender, nondistended, normoactive bowel sounds. No palpable organomegaly. MUSCULOSKELETAL: No joint swelling or deformity. EXTREMITIES: No cyanosis, clubbing, or pedal edema. NEUROLOGICAL: Gross neurological examination did not reveal any focal deficits. SKIN: No rashes. no petechiae. - Labs CBC & Chem 7: 05/13/21 09:10 05/13/21 09:10 Labs: Abnormal Lab Results - Last 24 Hours (Table) 05/12/21 05/12/21 05/12/21 Range/Units 12:48 15:21 16:31 WBC (3.8-10.6) k/uL Neutrophils # (1.3-7.7) k/uL Lymphocytes # (1.0-4.8) k/uL Monocytes # (0-1.0) k/uL APTT 21.6 L (22.0-30.0) sec ABG pH (7.35-7.45) ABG pCO2 (35-45) mmHg ABG pO2 (83-108) mmHg ABG HCO3 (21-25) mmol/L Sodium (137-145) mmol/L Carbon Dioxide (22-30) mmol/L BUN (9-20) mg/dL Creatinine (0.66-1.25) mg/dL Glucose (74-99) mg/dL POC Glucose (mg/dL) (75-99) mg/dL Plasma Lactic Acid Lv 2.3 H* (0.7-2.0) mmol/L Total Bilirubin (0.2-1.3) mg/dL C-Reactive Protein (<1.0) mg/dL Albumin (3.5-5.0) g/dL Procalcitonin (0.02-0.09) ng/mL Ur Specific [place] >1.050 H (1.001-1.035) Urine Protein 1+ H (Negative) Urine Ketones (Negative) Urine Blood Moderate H (Negative) Ur Leukocyte Esterase Trace H (Negative) Urine RBC 110 H (0-5) /hpf Urine Mucus Rare H (None) /hpf CSF RBC (0-10) u/L CSF Tot Nucleated Cells (0-5) u/L CSF Glucose (40-70) mg/dL CSF Total Protein (12-60) mg/dL Ur Amphetamines Screen (NotDetected) U Methamphetamines Scrn (NotDetected) U Marijuana (THC) Screen (NotDetected) 05/12/21 05/12/21 05/12/21 Range/Units 19:59 19:59 19:59 WBC 21.8 H (3.8-10.6) k/uL Neutrophils # 20.2 H (1.3-7.7) k/uL Lymphocytes # 0.8 L (1.0-4.8) k/uL Monocytes # (0-1.0) k/uL APTT (22.0-30.0) sec ABG pH (7.35-7.45) ABG pCO2 (35-45) mmHg ABG pO2 (83-108) mmHg ABG HCO3 (21-25) mmol/L Sodium 130 L (137-145) mmol/L Carbon Dioxide 20 L (22-30) mmol/L BUN 22 H (9-20) mg/dL Creatinine 1.33 H (0.66-1.25) mg/dL Glucose 114 H (74-99) mg/dL POC Glucose (mg/dL) (75-99) mg/dL Plasma Lactic Acid Lv 2.3 H* (0.7-2.0) mmol/L Total Bilirubin (0.2-1.3) mg/dL C-Reactive Protein 19.6 H (<1.0) mg/dL Albumin (3.5-5.0) g/dL Procalcitonin (0.02-0.09) ng/mL Ur Specific [place] (1.001-1.035) Urine Protein (Negative) Urine Ketones (Negative) Urine Blood (Negative) Ur Leukocyte Esterase (Negative) Urine RBC (0-5) /hpf Urine Mucus (None) /hpf CSF RBC (0-10) u/L CSF Tot Nucleated Cells (0-5) u/L CSF Glucose (40-70) mg/dL CSF Total Protein (12-60) mg/dL Ur Amphetamines Screen (NotDetected) U Methamphetamines Scrn (NotDetected) U Marijuana (THC) Screen (NotDetected) 05/12/21 05/12/21 05/13/21 Range/Units 19:59 23:25 00:40 WBC (3.8-10.6) k/uL Neutrophils # (1.3-7.7) k/uL Lymphocytes # (1.0-4.8) k/uL Monocytes # (0-1.0) k/uL APTT (22.0-30.0) sec ABG pH (7.35-7.45) ABG pCO2 (35-45) mmHg ABG pO2 (83-108) mmHg ABG HCO3 (21-25) mmol/L Sodium (137-145) mmol/L Carbon Dioxide (22-30) mmol/L BUN (9-20) mg/dL Creatinine (0.66-1.25) mg/dL Glucose (74-99) mg/dL POC Glucose (mg/dL) (75-99) mg/dL Plasma Lactic Acid Lv 4.9 H* (0.7-2.0) mmol/L Total Bilirubin (0.2-1.3) mg/dL C-Reactive Protein (<1.0) mg/dL Albumin (3.5-5.0) g/dL Procalcitonin 1.70 H (0.02-0.09) ng/mL Ur Specific [place] (1.001-1.035) Urine Protein (Negative) Urine Ketones (Negative) Urine Blood (Negative) Ur Leukocyte Esterase (Negative) Urine RBC (0-5) /hpf Urine Mucus (None) /hpf CSF RBC (0-10) u/L CSF Tot Nucleated Cells (0-5) u/L CSF Glucose (40-70) mg/dL CSF Total Protein (12-60) mg/dL Ur Amphetamines Screen Detected H (NotDetected) U Methamphetamines Scrn Detected H (NotDetected) U Marijuana (THC) Screen Detected H (NotDetected) 05/13/21 05/13/21 05/13/21 Range/Units 05:00 07:31 08:19 WBC (3.8-10.6) k/uL Neutrophils # (1.3-7.7) k/uL Lymphocytes # (1.0-4.8) k/uL Monocytes # (0-1.0) k/uL APTT (22.0-30.0) sec ABG pH (7.35-7.45) ABG pCO2 (35-45) mmHg ABG pO2 (83-108) mmHg ABG HCO3 (21-25) mmol/L Sodium (137-145) mmol/L Carbon Dioxide (22-30) mmol/L BUN (9-20) mg/dL Creatinine (0.66-1.25) mg/dL Glucose (74-99) mg/dL POC Glucose (mg/dL) 144 H (75-99) mg/dL Plasma Lactic Acid Lv 5.5 H* 6.0 H* (0.7-2.0) mmol/L Total Bilirubin (0.2-1.3) mg/dL C-Reactive Protein (<1.0) mg/dL Albumin (3.5-5.0) g/dL Procalcitonin (0.02-0.09) ng/mL Ur Specific [place] (1.001-1.035) Urine Protein (Negative) Urine Ketones (Negative) Urine Blood (Negative) Ur Leukocyte Esterase (Negative) Urine RBC (0-5) /hpf Urine Mucus (None) /hpf CSF RBC (0-10) u/L CSF Tot Nucleated Cells (0-5) u/L CSF Glucose (40-70) mg/dL CSF Total Protein (12-60) mg/dL Ur Amphetamines Screen (NotDetected) U Methamphetamines Scrn (NotDetected) U Marijuana (THC) Screen (NotDetected) 05/13/21 05/13/21 05/13/21 Range/Units 08:44 09:10 09:10 WBC 26.6 H (3.8-10.6) k/uL Neutrophils # 23.9 H (1.3-7.7) k/uL Lymphocytes # (1.0-4.8) k/uL Monocytes # 1.2 H (0-1.0) k/uL APTT (22.0-30.0) sec ABG pH 7.48 H (7.35-7.45) ABG pCO2 27 L (35-45) mmHg ABG pO2 70 L (83-108) mmHg ABG HCO3 20 L (21-25) mmol/L Sodium 134 L (137-145) mmol/L Carbon Dioxide 20 L (22-30) mmol/L BUN 22 H (9-20) mg/dL Creatinine (0.66-1.25) mg/dL Glucose 126 H (74-99) mg/dL POC Glucose (mg/dL) (75-99) mg/dL Plasma Lactic Acid Lv (0.7-2.0) mmol/L Total Bilirubin 1.8 H (0.2-1.3) mg/dL C-Reactive Protein (<1.0) mg/dL Albumin 3.3 L (3.5-5.0) g/dL Procalcitonin (0.02-0.09) ng/mL Ur Specific [place] (1.001-1.035) Urine Protein (Negative) Urine Ketones (Negative) Urine Blood (Negative) Ur Leukocyte Esterase (Negative) Urine RBC (0-5) /hpf Urine Mucus (None) /hpf CSF RBC (0-10) u/L CSF Tot Nucleated Cells (0-5) u/L CSF Glucose (40-70) mg/dL CSF Total Protein (12-60) mg/dL Ur Amphetamines Screen (NotDetected) U Methamphetamines Scrn (NotDetected) U Marijuana (THC) Screen (NotDetected) 05/13/21 05/13/2105/13/21 Range/Units 09:51 11:15 11:20 WBC (3.8-10.6) k/uL Neutrophils # (1.3-7.7) k/uL Lymphocytes # (1.0-4.8) k/uL Monocytes # (0-1.0) k/uL APTT (22.0-30.0) sec ABG pH (7.35-7.45) ABG pCO2 (35-45) mmHg ABG pO2 (83-108) mmHg ABG HCO3 (21-25) mmol/L Sodium (137-145) mmol/L Carbon Dioxide (22-30) mmol/L BUN (9-20) mg/dL Creatinine (0.66-1.25) mg/dL Glucose (74-99) mg/dL POC Glucose (mg/dL) 125 H (75-99) mg/dL Plasma Lactic Acid Lv (0.7-2.0) mmol/L Total Bilirubin (0.2-1.3) mg/dL C-Reactive Protein (<1.0) mg/dL Albumin (3.5-5.0) g/dL Procalcitonin (0.02-0.09) ng/mL Ur Specific [place] (1.001-1.035) Urine Protein 1+ H (Negative) Urine Ketones 1+ H (Negative) Urine Blood Moderate H (Negative) Ur Leukocyte Esterase (Negative) Urine RBC 18 H (0-5) /hpf Urine Mucus Rare H (None) /hpf CSF RBC 175 H (0-10) u/L CSF Tot Nucleated Cells 3350 H* (0-5) u/L CSF Glucose <20 L* (40-70) mg/dL CSF Total Protein >600 H (12-60) mg/dL Ur Amphetamines Screen (NotDetected) U Methamphetamines Scrn (NotDetected) U Marijuana (THC) Screen (NotDetected) Microbiology - Last 24 Hours (Table) 05/12/21 19:55 Blood Culture Gram Stain - Preliminary Blood 05/12/21 19:55 Blood Culture - Final Blood Assessment and Plan Assessment: Sepsis of unknown origin with fever and leukocytosis. Most likely has meningitis Gram-positive cocci bacteremia Bilateral pulmonary infiltrate, suspected IV fluid. Pulmonary team still recommend continue IV fluids and monitored closely in the ICU Acute kidney injury area just old Hematuria Elevated lactic acid Bilateral lower extremity ischemia, looks chronic with right lower extremity more than 70% and left lower extremity about 50% Plan: This is a pleasant 70 years old male who presents with altered mental status, sepsis. Bilateral lower extremity extremely a, Al[place] Rosa Continue with ceftriaxone, IV vancomycin and acyclovir for repeat blood culture.infectious disease consult MRI/A of the brain pending. Neurology consult Continue with gentle hydration and monitor respiratory status. Pulmonary/critical care consult Check renal ultrasound. Hold anticoagulants and blood thinners for possible procedure for example lumbar puncture Vascular surgery consult called by emergency room team, we will follow up. we will discuss with neurology team about aspirin and Plavix Labs and medication were reviewed.. Continue same treatment. Continue with symptomatic treatment. Resume home medication. Monitor lytes and vitals. DVT and GI prophylaxis. Further recommendations depends on the clinical course of the patient DVT prophyl: SCD GI Prophylaxis: Pepcid Prognosis is guarded
--- NOTE | 2021-05-13 15:52 | US ---
EXAMINATION TYPE: US renals and bladder DATE OF EXAM: 05/13/2021 COMPARISON: NONE CLINICAL HISTORY: Hematuria. EXAM MEASUREMENTS: Right Kidney: 11.2 x 5.4 x 6.0 cm Left Kidney: 9.9 x 5.2 x 5.8 cm Right Kidney: No hydronephrosis or masses seen Left Kidney: No hydronephrosis or masses seen Bladder: non vis, alarcon seen within Bilateral Jets seen: No There is no evidence for hydronephrosis at this point in time. No nephrolithiasis is seen. No susanna s are identified. Cortical medullary differentiation is maintained bilaterally. IMPRESSION: Indwelling Alarcon. Renal sizes as described.
--- NOTE | 2021-05-13 16:39 | EEG ---
ELECTROENCEPHALOGRAM REPORT DATE OF SERVICE: 05/13/2021 PREAMBLE: This is a 70-year-old male with altered mental status. Possible meningitis. EEG FINDINGS: This is a 21 channel digital portable EEG performed with video component, utilizing 10/20 international system with referential and bipolar montages. Background consists of well-developed, poorly regulated, mixed frequencies of 8-9 Hz alpha, intermixed with 5-6 hertz theta, and some moderate amplitude 2-3 hertz delta activity seen in bihemispheric region. Background does not seem to be reactive to eye opening or closing. Photic driving response was seen with some flash frequencies. Hyperventilation was not performed. Some intermittent stage II sleep was seen with the presence of sleep spindles. No focal or generalized epileptiform activity was seen. IMPRESSION: This is an abnormal EEG due to background slowing of mild to moderate degree. This is suggestive of generalized cerebral dysfunction as can be seen with toxic metabolic encephalopathy or due to diffuse structural brain abnormality. No epileptiform activity was seen. MMODL / IJN: [id number] / [facility]
--- NOTE | 2021-05-13 22:14 | PN ---
PROGRESS NOTE DATE OF SERVICE: 05/13/2021 REASON FOR FOLLOWUP: Acute bacterial meningitis with bacteremia. INTERVAL HISTORY: Patient is afebrile. The patient is status post LP that was completed this morning which was cloudy. The patient is sleepy, lethargic, did answer yes or no to some simple questions. No vomiting, diarrhea or any other changes reported by the nursing staff. PHYSICAL EXAMINATION: Blood pressure is 132/92 with a pulse of 78, temperature of 98.8. He is 97% on 2 L nasal cannula. General description is an elderly male lying in bed in no distress. Respiratory system: Unlabored breathing, clear to auscultation anteriorly. Heart S1, S2. Regular rate and rhythm. Abdomen soft, no tenderness. Extremities: No edema of the feet. LABS: CSF examination did show a white count of 3350, glucose less than 15, proteus more than 600. The patient did have positive blood culture with strep pneumo. DIAGNOSTIC IMPRESSION AND PLAN: Patient with acute bacterial meningitis secondary to strep pneumoniae which is growing in the blood. Patient is covered with vancomycin and Rocephin to continue while waiting for the culture to finalize. Discontinue Acyclovir. Family was at the bedside, . Questions and concerns were answered. MMODL / IJN: [id number] /
[2021-05-14] MEDS: SODIUM CHLORIDE 0.9% 1,000 ML IV SCH ×2 (03:57→17:41)
[2021-05-14 05:08] LABS: Basophils % (A) 0 %; Eosinophils % (A) 0 %; HCT 53.5 % (39.0-53.0); HGB 17.4 gm/dL (13.0-17.5); Lymphocytes # (A) 1.2 k/uL (1.0-4.8); Lymphocytes % (A) 5 %; MCH 29.3 pg (25.0-35.0); MCHC 32.6 g/dL (31.0-37.0); MCV 89.9 fL (80.0-100.0); Mean Platelet Volume 9.2; Monocytes # (A) 1.4 k/uL (0-1.0); Monocytes % (A) 7 %; Neutrophils # (A) 18.3 k/uL (1.3-7.7); Neutrophils % (A) 85 %; Platelet Count 135 k/uL (150-450); RBC 5.95 m/uL (4.30-5.90); RDW 14.3 % (11.5-15.5); WBC 21.5 k/uL (3.8-10.6)
[2021-05-14] MEDS: VANCOMYCIN 1,500 MG in SODIUM CHLORIDE 0.9% 250 ML IVPB SCH ×2 (06:35→18:35)
[2021-05-14] MEDS: FAMOTIDINE 20 MG/2 ML VIAL IV SCH ×2 (08:03→21:08)
[2021-05-14 08:13] LABS: African American GFR (CKD) >90 (>60 ml/min/1.73 sqM); Anion Gap 7 mmol/L; Blood Urea Nitrogen 23 mg/dL (9-20); Calcium 8.2 mg/dL (8.4-10.2); Carbon Dioxide 19 mmol/L (22-30); Chloride 106 mmol/L (98-107); Glucose 141 mg/dL (74-99); Non-African American GFR(CKD) 86 (>60 ml/min/1.73 sqM); Sodium 132 mmol/L (137-145)
[2021-05-14 08:25] LABS: Potassium 4.2 mmol/L (3.5-5.1)
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
--- NOTE | 2021-05-14 09:40 | P.PN ---
Subjective This is a pleasant 70 years old male with past medical history of Hyperlipidemia, Hypertension, tinnitus. Patient states that he fell last night when he was standing up trying to get to the bathroom. He still feels some nonspecific dizziness but denies loss of consciousness. He knows he is in the hospital but he could not tell which hospital, he thought it is 1999 2019 and time the president is Oswaldo. However during conversation patient goes back to sleep, he is easily arousable to verbal stimuli before he goes back to sleep shortly thereafter. He denies weakness or numbness in all 4 extremities and he moves them symmetrically. Patient complains from low back pain. And some mild neck pain but no neck stiffness. Patient is poor historian He denies chest pain or dyspnea. No abdominal pain. No diarrhea or vomiting. No urinary dysuria or increased frequency. Patient has fever on admission of 102.4 and blood pressure is borderline 105/58 This creatinine is 1.5, WBC 24.5, sodium 131, lactic acid 2.3 05/13/2021 Patient is still confused today. He denies any specific complaint however his significantly drowsy. Also his tachypnea. He received several doses of normal saline fluid during the night almost 3 L total his lactic acid still elevated at 6. A team was called because of high lactic acid. An repeat chest x-ray showing bilateral infiltrate, pH is 7.4, low pCO2 of 27 and low pO2 of 70. Most of the fluid management and abnormal chest x-ray pulmonary team were consulted who recommended to transfer the patient to the ICU. No fever today. His that HE still elevated at 26. Creatinine is back to normal. Sodium improved 134. Carotid duplex is negative. Blood culture is positive for gram-positive cocci. MRI and MRA of the brain is ordered by neurology team and is pending Lumbar puncture showing elevated pressure. Result is pending. Also patient has hematuria, renal ultrasound is ordered Patient is currently covered with ceftriaxone 2 g twice daily per ID team who also started him on IV vancomycin. Also patient is on acyclovir. IV fluid lower to 75 mL/h but continued per recommendation by pulmonary team. Monitor breathing function Keep holding home medication 05/14/2021 Patient remains in the ICU, breathing improved and lactic acid back to normal and he Currently on normal saline at 75 mL/h. Also his blood pressure is normal and acceptable with SBP 08/14/2029. Mentation has been stable with only small improvement, he still oriented to place only, he knows he is in the hospital since he came in but today he can tell he is also in [facility] however he still confused about time and persons. He has minimal neck pain, low back pain since admission. No severe headache today. No weakness or numbness in extremities. Vitals stable, afebrile. Leukocytosis improving down to 21, but also patient got dexamethasone dose yesterday. Creatinine is back to normal at 0.9 Sodium 132. Lumbar puncture results are consistent with bacterial meningitis with increased nucleated delicacy and low glucose EEG showing no epileptiform activity Remains on ceftriaxone 2 g twice daily and IV vancomycin per ID team. Streptococcus bacteremia is detected. Echocardiogram is ordered and is pending MRI of the brain is pending. Patient kept nothing by mouth and may need surgical evaluation later on. Renal ultrasound show no abnormalities for his mild hematuria, we will repeat urine analysis We will discuss with neurology if it's okay to resume aspirin and Plavix for his recent cardiac stent. Discussed with staff. Currently patient with no chest pain or dyspnea Review of systems CONSTITUTIONAL: No fever, no malaise, no fatigue. HEENT: No recent visual problems or hearing problems. Denied any sore throat. CARDIOVASCULAR: No orthopnea, PND, no palpitations, no syncope. PULMONARY: No shortness of breath, no cough, no hemoptysis. GASTROINTESTINAL: No diarrhea, no nausea, no vomiting, no abdominal pain. Normoactive bowel sounds. Generic Name Dose Route Start Last Admin Trade Name Freq PRN Reason Stop Dose Admin Acetaminophen 650 mg 05/12/21 15:35 Acetaminophen Tab 325 Mg Tab PO Q6HR PRN Mild Pain or Fever > 100.5 Hydrocodone Bitart/Acetaminophen 1 each 05/12/21 15:35 05/13/21 04:55 Hydrocodone/Apap 5-325mg 1 Each Tab PO 1 each Q4HR PRN Administration Moderate Pain Albuterol Sulfate 2.5 mg 05/12/21 16:05 Albuterol Nebulized 2.5 Mg/3 Ml INHALATION RT-QID PRN Shortness Of Breath Famotidine 20 mg 05/12/21 21:00 05/14/21 08:03 Famotidine 20 Mg/2 Ml Vial IV 20 mg Q12HR [facility] Administration Sodium Chloride 1,000 mls @ 75 mls/hr 05/12/21 15:45 05/14/21 03:57 Saline 0.9% IV 75 mls/hr .[id number] [facility] Administration Ceftriaxone Sodium 2 gm/ 50 mls @ 100 mls/hr 05/13/21 09:00 05/14/21 08:17 Sodium Chloride IVPB 100 mls/hr Q12HR [facility] Administration Vancomycin HCl 1,500 mg/ 250 mls @ 125 mls/hr 05/14/21 18:45 Sodium Chloride IVPB Q12H [facility] Lorazepam 1 mg 05/13/21 01:48 05/13/21 01:55 Lorazepam 2 Mg/Ml Inj IV 1 mg Q4HR PRN Administration Anxiety Miscellaneous Information 0 each 05/15/21 05:45 Vancomycin Trough Due 1 Each Misc MISCELLANE 05/15/21 05:46 DIRECTED ONE Naloxone HCl 0.2 mg 05/12/21 15:35 Naloxone 0.4 Mg/Ml 1 Ml Vial IV Q2M PRN Opioid Reversal Ondansetron HCl 4 mg 05/12/21 15:35 Ondansetron 4 Mg/2 Ml Vial IVP Q8HR PRN Nausea And Vomiting Objective - Vital Signs Vital signs: Vital Signs Temp 99.0 F 05/14/21 04:00 Pulse 63 05/14/21 07:00 Resp 16 05/14/21 07:00 BP 131/92 05/14/21 07:00 Pulse Ox 98 05/14/21 07:00 Intake & Output 05/13/21 05/14/21 05/14/21 18:59 06:59 18:59 Intake Total 820 950 75 Output Total 1940 565 50 Balance -1120 385 25 Weight 80.1 kg Intake: IV 820 900 75 Sodium Chloride 0.9% 1, 820 900 75 000 ml @ 75 mls/hr IV . [id number] [facility] Rx#:[id number] Intake, IV Titration 50 Amount cefTRIAXone 2 gm In 50 Sodium Chloride 0.9% 50 ml @ 100 mls/hr IVPB Q24HR [facility] Rx#:[id number] Output: Urine 1940 565 50 Other: Voiding Method Indwelling Catheter Indwelling Catheter - Exam -GENERAL: The patient is confused and drowsy HEENT: Pupils are round and equally reacting to light. EOMI. No scleral icterus. No conjunctival pallor. Normocephalic, atraumatic. No pharyngeal erythema. No thyromegaly. CARDIOVASCULAR: S1 and S2 present. No murmurs, rubs, or gallops. -PULMONARY: Chest is clear to auscultation, no wheezing. The kidney The With bilateral crepitation ABDOMEN: Soft, nontender, nondistended, normoactive bowel sounds. No palpable organomegaly. MUSCULOSKELETAL: No joint swelling or deformity. EXTREMITIES: No cyanosis, clubbing, or pedal edema. NEUROLOGICAL: Gross neurological examination did not reveal any focal deficits. SKIN: No rashes. no petechiae. - Labs CBC & Chem 7: 05/14/21 04:28 05/14/21 07:32 Labs: Abnormal Lab Results - Last 24 Hours (Table) 05/12/21 05/13/21 05/13/21 Range/Units 19:59 09:10 09:51 WBC (3.8-10.6) k/uL RBC (4.30-5.90) m/uL Hct (39.0-53.0) % Plt Count (150-450) k/uL Neutrophils # (1.3-7.7) k/uL Monocytes # (0-1.0) k/uL Sodium 134 L (137-145) mmol/L Carbon Dioxide 20 L (22-30) mmol/L BUN 22 H (9-20) mg/dL Glucose 126 H (74-99) mg/dL POC Glucose (mg/dL) 125 H (75-99) mg/dL Plasma Lactic Acid Lv (0.7-2.0) mmol/L Calcium (8.4-10.2) mg/dL Total Bilirubin 1.8 H (0.2-1.3) mg/dL Albumin 3.3 L (3.5-5.0) g/dL Procalcitonin 1.70 H (0.02-0.09) ng/mL Urine Protein (Negative) Urine Ketones (Negative) Urine Blood (Negative) Urine RBC (0-5) /hpf Urine Mucus (None) /hpf CSF RBC (0-10) u/L CSF Tot Nucleated Cells (0-5) u/L CSF Glucose (40-70) mg/dL CSF Total Protein (12-60) mg/dL 05/13/21 05/13/21 05/13/21 Range/Units 11:15 11:20 17:23 WBC (3.8-10.6) k/uL RBC (4.30-5.90) m/uL Hct (39.0-53.0) % Plt Count (150-450) k/uL Neutrophils # (1.3-7.7) k/uL Monocytes # (0-1.0) k/uL Sodium (137-145) mmol/L Carbon Dioxide (22-30) mmol/L BUN (9-20) mg/dL Glucose (74-99) mg/dL POC Glucose (mg/dL) (75-99) mg/dL Plasma Lactic Acid Lv 2.1 H* (0.7-2.0) mmol/L Calcium (8.4-10.2) mg/dL Total Bilirubin (0.2-1.3) mg/dL Albumin (3.5-5.0) g/dL Procalcitonin (0.02-0.09) ng/mL Urine Protein 1+ H (Negative) Urine Ketones 1+ H (Negative) Urine Blood Moderate H (Negative) Urine RBC 18 H (0-5) /hpf Urine Mucus Rare H (None) /hpf CSF RBC 175 H (0-10) u/L CSF Tot Nucleated Cells 3350 H* (0-5) u/L CSF Glucose <20 L* (40-70) mg/dL CSF Total Protein >600 H (12-60) mg/dL 05/14/21 05/14/21 Range/Units 04:28 07:32 WBC 21.5 H (3.8-10.6) k/uL RBC 5.95 H (4.30-5.90) m/uL Hct 53.5 H (39.0-53.0) % Plt Count 135 L (150-450) k/uL Neutrophils # 18.3 H (1.3-7.7) k/uL Monocytes # 1.4 H (0-1.0) k/uL Sodium 132 L (137-145) mmol/L Carbon Dioxide 19 L (22-30) mmol/L BUN 23 H (9-20) mg/dL Glucose 141 H (74-99) mg/dL POC Glucose (mg/dL) (75-99) mg/dL Plasma Lactic Acid Lv (0.7-2.0) mmol/L Calcium 8.2 L (8.4-10.2) mg/dL Total Bilirubin (0.2-1.3) mg/dL Albumin (3.5-5.0) g/dL Procalcitonin (0.02-0.09) ng/mL Urine Protein (Negative) Urine Ketones (Negative) Urine Blood (Negative) Urine RBC (0-5) /hpf Urine Mucus (None) /hpf CSF RBC (0-10) u/L CSF Tot Nucleated Cells (0-5) u/L CSF Glucose (40-70) mg/dL CSF Total Protein (12-60) mg/dL Microbiology - Last 24 Hours (Table) 05/12/21 19:59 Blood Culture Gram Stain - Preliminary Blood 05/12/21 19:59 Blood Culture - Final Blood 05/12/21 19:55 Blood Culture Gram Stain - Preliminary Blood Blood Culture - Preliminary Streptococcus pneumoniae 05/13/21 11:15 CSF Gram Stain - Preliminary Cerebral Spinal Fluid CSF Culture - Preliminary 05/12/21 19:55 Blood Culture - Final Blood Assessment and Plan Assessment: Acute bacterial meningitis Streptococcus bacteremia Sepsis with fever and leukocytosis. Gram-positive cocci bacteremia Bilateral pulmonary infiltrate, suspected IV fluid. Pulmonary team still recommend continue IV fluids and monitored closely in the ICU Acute kidney injury, resolved Hematuria Elevated lactic acid Bilateral lower extremity ischemia, looks chronic with right lower extremity more than 70% and left lower extremity about 50% Plan: This is a pleasant 70 years old male who presents with altered mental status, se psis. Bilateral lower extremity extremely a, Alma Rosa Continue with ceftriaxone, IV vancomycin.infectious disease consult on the case MRI/A of the brain pending. Neurology consult Continue with gentle hydration and monitor respiratory status. Pulmonary/critical care consult Echocardiogram Discussed with the neurovascular start aspirin and Plavix Vascular surgery consult called by emergency room team, we will follow up. we will discuss with neurology team about aspirin and Plavix Labs and medication were reviewed.. Continue same treatment. Continue with symptomatic treatment. Resume home medication. Monitor lytes and vitals. DVT and GI prophylaxis. Further recommendations depends on the clinical course of the patient DVT prophyl: SCD GI Prophylaxis: Pepcid Prognosis is guarded
--- NOTE | 2021-05-14 12:02 | P.PN ---
Subjective Progress Note Date: 05/14/21 The patient is seen and examined sitting up in the ICU. No acute changes through the night. He had a lumbar puncture yesterday with CSF consistent with bacterial meningitis. Ball is much more alert and awake today. He is able to answer questions and follow commands. He has a history of chronic peripheral arterial disease and follows with the [facility]. He underwent a CT angiogram of the lower extremities revealing moderate plaque disease at the bilateral trifurcations greater than 70% on the right 50% on the left. Patient continues to complain of head hurting and neck, however somewhat improved from yesterday. Patient also has a history of methamphetamine abuse. Yesterday he underwent lower extremity arterial study with JUVENAL 1.03 on the right and 1.01 on the left. Objective - Vital Signs Vital signs: Vital Signs Temp 99.0 F 05/14/21 08:00 Pulse 56 L 05/14/21 10:00 Resp 19 05/14/21 10:00 BP 147/102 05/14/21 10:00 Pulse Ox 94 L 05/14/21 10:00 Intake & Output 05/13/21 05/14/21 05/14/21 18:59 06:59 18:59 Intake Total 820 950 225 Output Total 1940 565 150 Balance -1120 385 75 Weight 80.1 kg Intake: IV 820 900 150 Sodium Chloride 0.9% 1, 820 900 150 000 ml @ 75 mls/hr IV . [id number] [facility] Rx#:[id number] Intake, IV Titration 50 75 Amount Sodium Chloride 0.9% 1, 75 000 ml @ 130 mls/hr IV . Q7H42M [facility] Rx#:[id number] cefTRIAXone 2 gm In 50 Sodium Chloride 0.9% 50 ml @ 100 mls/hr IVPB Q24HR [facility]EMA Rx#:[id number] Output: Urine 1940 565 150 Other: Voiding Method Indwelling Catheter Indwelling Catheter Indwelling Catheter - Exam General appearance: The patient is alert, oriented, in no acute distress. HET: Head is normocephalic and atraumatic. Neck: Supple without lymphadenopathy. Trachea midline. Extremities: Bilateral lower extremities dusky and cool to the touch. Positive Doppler signal to lower extremities. Neurological: No focal deficits. Alert and oriented 3. - Labs CBC & Chem 7: 05/14/21 04:28 05/14/21 07:32 Labs: Abnormal Lab Results - Last 24 Hours (Table) 05/12/21 05/13/21 05/13/21 Range/Units 19:59 11:15 11:20 WBC (3.8-10.6) k/uL RBC (4.30-5.90) m/uL Hct (39.0-53.0) % Plt Count (150-450) k/uL Neutrophils # (1.3-7.7) k/uL Monocytes # (0-1.0) k/uL Sodium (137-145) mmol/L Carbon Dioxide (22-30) mmol/L BUN (9-20) mg/dL Glucose (74-99) mg/dL Plasma Lactic Acid Lv (0.7-2.0) mmol/L Calcium (8.4-10.2) mg/dL Procalcitonin 1.70 H (0.02-0.09) ng/mL Urine Protein 1+ H (Negative) Urine Ketones 1+ H (Negative) Urine Blood Moderate H (Negative) Urine RBC 18 H (0-5) /hpf Urine Mucus Rare H (None) /hpf CSF RBC 175 H (0-10) u/L CSF Tot Nucleated Cells 3350 H* (0-5) u/L CSF Glucose <20 L* (40-70) mg/dL CSF Total Protein >600 H (12-60) mg/dL 05/13/21 05/14/21 05/14/21 Range/Units 17:23 04:28 07:32 WBC 21.5 H (3.8-10.6) k/uL RBC 5.95 H (4.30-5.90) m/uL Hct 53.5 H (39.0-53.0) % Plt Count 135 L (150-450) k/uL Neutrophils # 18.3 H (1.3-7.7) k/uL Monocytes # 1.4 H (0-1.0) k/uL Sodium 132 L (137-145) mmol/L Carbon Dioxide 19 L (22-30) mmol/L BUN 23 H (9-20) mg/dL Glucose 141 H (74-99) mg/dL Plasma Lactic Acid Lv 2.1 H* (0.7-2.0) mmol/L Calcium 8.2 L (8.4-10.2) mg/dL Procalcitonin (0.02-0.09) ng/mL Urine Protein (Negative) Urine Ketones (Negative) Urine Blood (Negative) Urine RBC (0-5) /hpf Urine Mucus (None) /hpf CSF RBC (0-10) u/L CSF Tot Nucleated Cells (0-5) u/L CSF Glucose (40-70) mg/dL CSF Total Protein (12-60) mg/dL Microbiology - Last 24 Hours (Table) 05/12/21 19:59 Blood Culture Gram Stain - Preliminary Blood 05/12/21 19:59 Blood Culture - Final Blood 05/12/21 19:55 Blood Culture Gram Stain - Preliminary Blood Blood Culture - Preliminary Streptococcus pneumoniae 05/13/21 11:15 CSF Gram Stain - Preliminary Cerebral Spinal Fluid CSF Culture - Preliminary 05/12/21 19:55 Blood Culture - Final Blood Assessment and Plan Assessment: 1. Peripheral arterial disease with estimated 50% stenosis on the left lower extremity and 70% on the right lower extremity according to CT angiogram, likely all chronic 2. Claudication 3. Altered mental status changes, resolved 4. Bacterial meningitis 5. Leukocytosis 6. Fever 7. History of coronary artery disease 8. History of hyperlipidemia and hypertension 9. Methamphetamine abuse Plan: 1. Lower extremity arterial study ordered and reviewed 2. CT angiogram of lower extremities reviewed 3. Continue medical and ICU management 4. No acute vascular surgical intervention indicated or planned. Patient to follow-up outpatient with vascular surgery for chronic peripheral vascular disease. Thank you for this consultation, we will sign off at this time. The impression and plan of care has been dictated as directed. Dr. Mtz I performed a history and examination of this patient, discussed the same with the dictator. I agree with the dictator's note ,documented as a scribe. Any additional findings or plans will be noted.
[2021-05-14 12:03] LABS: Appearance,Urine Cloudy (Clear); Bacteria,Urine Occasional /hpf; Bilirubin,Urine Negative (Negative); Blood,Urine Moderate (Negative); Color,Urine Yellow; Glucose,Urine (UA) Negative (Negative); Ketones,Urine Negative (Negative); Leukocyte Esterase,Urine Small (Negative); Mucus,Urine Occasional /hpf; Nitrite,Urine Negative (Negative); Protein,Urine 1+ (Negative); RBC,Urine 105 /hpf (0-5); Specific Gravity,Urine 1.031 (1.001-1.035); Squamous Epithelial Cell,Urine <1 /hpf (0-4); Urobilinogen,Urine <2.0 mg/dL (<2.0); WBC,Urine 12 /hpf (0-5)
--- NOTE | 2021-05-14 12:08 | P.ARTDOP ---
Arterial Doppler LOWER EXTREMITY ARTERIAL DOPPLER: DATE OF SERVICE: 05/13/2021 Reason for study: Bilateral foot pain. Doppler waveforms: Multiphasic bilaterally throughout. Toe waveforms are however essentially flat line. Pulse volume recording: []. Pressure gradients: []. Ankle-brachial indices: []Greater than 1 bilaterally Toe brachial indices: [] on the right, [] on the left Impression: proximally circulatory status is normal. Distal waveforms are suspicious for severe vasospastic phenomenon. Distal disease less likely. Clinical correlation recommended.
--- NOTE | 2021-05-14 12:26 | ECHOF ---
Referral Reason:Bacterial meningitis, r/o endocarditis MEASUREMENTS -------- HEIGHT: 180.3 cm WEIGHT: 79.8 kg BP: IVSd: 1.2 cm (0.6 - 1.1) LVIDd: 3.8 cm (3.9 - 5.3) LVPWd: 1.2 cm (0.6 - 1.1) EDV(Teich): 61 ml IVSs: 1.8 cm LVIDs: 3.0 cm LVPWs: 1.6 cm %IVS Thck: 46 % ESV(Teich): 34 ml EF(Teich): 44 % %FS: 21 % SV(Teich): 27 ml Ao Diam: 3.3 cm (2.0 - 3.7) LA Diam: 3.0 cm (2.7 - 3.8) AV Cusp: 1.8 cm (1.5 - 2.6) EPSS: 1.0 cm MV E Helio: 0.75 m/s MV DecT: 233 ms MV Dec [place]: 3.2 m/s MV A Helio: 0.72 m/s MV E/A Ratio: 1.03 MV PHT: 67 ms MR Vmax: 2.49 m/s MR maxP.84 mmHg AR Vmax: 1.32 m/s AR maxP.99 mmHg AR PHT: 476 ms AR Dec Time: 1640 ms AR Dec [place]: 0.8 m/s TR Vmax: 2.03 m/s TR maxP.43 mmHg RAP: 5.00 mmHg RVSP: 21.43 mmHg MV EF SLOPE: 68.78 mm/s (70 - 150) MV EXCURSION: 11.45 mm (> 18.000) FINDINGS -------- This was a technically difficult study with suboptimal views. The left ventricular size is normal. There is mild concentric left ventricular hypertrophy. Overa ll left ventricular systolic function is mild-moderately impaired with, an EF between 40 - 45 %. In feriorlateral Hypokinesis The right ventricle is normal in size. The left atrial size is normal. The right atrial size is normal. Lumason used Aortic valve is trileaflet and is mildly thickened. There is mild aortic regurgitation. Cannot ru le out vegetation. The mitral valve is normal. There is trace mitral regurgitation. The tricuspid valve appears structurally normal. Trace tricuspid regurgitation present. Right merlyn tricular systolic pressure is normal at < 35 mmHg. There is no pulmonic regurgitation present. The aortic root size is normal. IVC Not well visulized. There is no pericardial effusion. CONCLUSIONS -------- 1. The left ventricular size is normal. 2. There is mild concentric left ventricular hypertrophy. 3. Overall left ventricular systolic function is mild-moderately impaired with, an EF between 40 - 45 %. 4. Inferiorlateral Hypokinesis 5. Aortic valve is trileaflet and is mildly thickened. 6. There is mild aortic regurgitation. 7. Cannot rule out vegetation. 8. There is trace mitral regurgitation. 9. Trace tricuspid regurgitation present. 10. There is no pericardial effusion. TELECOMMUNICATIONS REPAIRER: Shilpa Palomino RDCS
--- NOTE | 2021-05-14 14:49 | P.PN ---
Subjective Progress Note Date: 05/14/21 Patient was seen for a follow-up. Patient is doing remarkably better. Complains of headache 3/10 at this time. Asking for [place], as his mouth is dry. Patient admits to use of methamphetamine. He does admit to having some neck and back pain "a bit". Denies any numbness tingling or new weakness. Objective - Vital Signs Vital signs: Vital Signs Temp 98.2 F 05/14/21 12:00 Pulse 73 05/14/21 14:00 Resp 18 05/14/21 14:00 BP 120/75 05/14/21 14:00 Pulse Ox 97 05/14/21 14:00 Intake & Output 05/13/21 05/14/21 05/14/21 18:59 06:59 18:59 Intake Total 820 950 800 Output Total 1940 565 345 Balance -1120 385 455 Weight 80.1 kg Intake: IV 820 900 525 Sodium Chloride 0.9% 1, 820 900 525 000 ml @ 75 mls/hr IV . [id number] [facility] Rx#:[id number] Intake, IV Titration 50 75 Amount Sodium Chloride 0.9% 1, 75 000 ml @ 130 mls/hr IV . Q7H42M [facility] Rx#:[id number] cefTRIAXone 2 gm In 50 Sodium Chloride 0.9% 50 ml @ 100 mls/hr IVPB Q24HR [facility] Rx#:[id number] Oral 200 Output: Urine 1940 565 345 Other: Voiding Method Indwelling Catheter Indwelling Catheter Indwelling Catheter - Exam Patient is alert and awake, very much comfortable as compared to yesterday. Headache is 3/10. Patient knows it is April and the year is 2020 and name of the current president. Speech and language functions are normal. Attention and concentration is slightly diminished. Slightly slow mentation and takes time to give the answer. Cranial nerves are normal. Visual castro are full. Extraocular muscles are intact. Muscle strength is normal in the upper limbs. In the lower limbs is hip flexion is 4 to 4-, ankle dorsiflexion 3+ to 4- bilaterally. Deep tendon reflexes are significantly diminished. No clonus. No ataxia. - Labs CBC & Chem 7: 05/14/21 04:28 05/14/21 07:32 Labs: Abnormal Lab Results - Last 24 Hours (Table) 05/13/21 05/14/21 05/14/21 Range/Units 17:23 04:28 07:32 WBC 21.5 H (3.8-10.6) k/uL RBC 5.95 H (4.30-5.90) m/uL Hct 53.5 H (39.0-53.0) % Plt Count 135 L (150-450) k/uL Neutrophils # 18.3 H (1.3-7.7) k/uL Monocytes # 1.4 H (0-1.0) k/uL Sodium 132 L (137-145) mmol/L Carbon Dioxide 19 L (22-30) mmol/L BUN 23 H (9-20) mg/dL Glucose 141 H (74-99) mg/dL Plasma Lactic Acid Lv 2.1 H* (0.7-2.0) mmol/L Calcium 8.2 L (8.4-10.2) mg/dL Urine Protein (Negative) Urine Blood (Negative) Ur Leukocyte Esterase (Negative) Urine RBC (0-5) /hpf Urine WBC (0-5) /hpf Urine Bacteria (None) /hpf Urine Mucus (None) /hpf 05/14/21 Range/Units 10:45 WBC (3.8-10.6) k/uL RBC (4.30-5.90) m/uL Hct (39.0-53.0) % Plt Count (150-450) k/uL Neutrophils # (1.3-7.7) k/uL Monocytes # (0-1.0) k/uL Sodium (137-145) mmol/L Carbon Dioxide (22-30) mmol/L BUN (9-20) mg/dL Glucose (74-99) mg/dL Plasma Lactic Acid Lv (0.7-2.0) mmol/L Calcium (8.4-10.2) mg/dL Urine Protein 1+ H (Negative) Urine Blood Moderate H (Negative) Ur Leukocyte Esterase Small H (Negative) Urine RBC 105 H (0-5) /hpf Urine WBC 12 H (0-5) /hpf Urine Bacteria Occasional H (None) /hpf Urine Mucus Occasional H (None) /hpf Microbiology - Last 24 Hours (Table) 05/13/21 11:15 CSF Gram Stain - Preliminary Cerebral Spinal Fluid CSF Culture - Preliminary 05/12/21 19:59 Blood Culture Gram Stain - Preliminary Blood 05/12/21 19:59 Blood Culture - Final Blood 05/12/21 19:55 Blood Culture Gram Stain - Preliminary Blood Blood Culture - Preliminary Streptococcus pneumoniae Assessment and Plan Assessment: * Bacterial meningitis due to Streptococcus pneumonia. CSF cultures positive. * Bacteremia with streptococcus pneumonia. * Hyponatremia * Mild renal insufficiency * Peripheral arterial disease * Hypertension * Hyperlipidemia * Coronary artery disease Plan: * Patient underwent lumbar puncture, in which CSF is cloudy, opening pressure was 47 cm. CSF xanthochromic, with white cells 3350, although patient 97% R polynuclear and 3% mononuclear cells, RBC 175. Total proteins are > 600, glucose <20. CSF has grown. Gram-positive cocci. * Patient's blood culture positive for Streptococcus pneumoniae. Continue ceftriaxone 2 g every 12 hours, meningeal dose. Patient also started on vancomycin. * Acyclovir has been discontinued by ID. * Patient is remarkably improved. * Patient's renal functions are stable. * EEG was abnormal due to background slowing of mild to moderate degree. This is suggestive of generalized cerebral dysfunction as can be seen with toxic metabolic encephalopathy or due to diffuse structural brain abnormality. No epileptiform activity was seen. * Await MRI of the brain with and without contrast. * Carotid Doppler shows no carotid stenosis. Antegrade flow in vertebral arteries. * Resume dual antiplatelet medications. * DVT prophylaxis as per IM. Discussed with the nursing staff Mr. Chahal about resuming antiplatelets and DVT prophylaxis. * Discussed with infectious disease and patient's sister in detail.
--- NOTE | 2021-05-14 17:18 | PN ---
PROGRESS NOTE DATE OF SERVICE: 05/14/2021 REASON FOR FOLLOWUP: Bacterial meningitis with bacteremia. INTERVAL HISTORY: The patient is afebrile. The patient is feeling better today. He is more awake and alert, breathing comfortably. No chest pain or shortness of breath. Occasional cough. No abdominal pain or diarrhea. PHYSICAL EXAMINATION: Blood pressure 114/83, pulse of 62, temperature 99. He is 96% on 2 L nasal cannula. General description is an elderly male lying in bed in no distress. RESPIRATORY SYSTEM: Unlabored breathing. Clear to auscultation anteriorly. HEART: S1, S2. Regular rate and rhythm. ABDOMEN: Soft. No tenderness. EXTREMITIES: No edema of the feet. LABS: Hemoglobin is 17.5, white count 21.5. Blood culture with Strep pneumo, sensitivities pending. CSF cultures are currently pending. DIAGNOSTIC IMPRESSION AND PLAN: Patient with Streptococcus pneumoniae bacteremia secondary to meningitis. This patient has shown some clinical improvement with the IV Rocephin and vancomycin; to continue while waiting for sensitivities to finalize and monitor his clinical course closely. Continue with supportive care. MMODL / IJN: [id number] /
[2021-05-14] MEDS: ACETAMINOPHEN TAB 325 MG TAB PO PRN (17:40)
[2021-05-15] MEDS: ACETAMINOPHEN TAB 325 MG TAB PO PRN (01:34)
[2021-05-15] MEDS ORDERED: VANCOMYCIN TROUGH DUE 1 EACH MISC MISCELLANE ONE (05:45)
[2021-05-15] MEDS: HYDROcodone/APAP 5-325MG 1 EACH TAB PO PRN ×3 (05:52→16:31)
[2021-05-15 06:05] LABS: Basophils % (A) 0 %; Eosinophils % (A) 0 %; HCT 45.1 % (39.0-53.0); HGB 15.1 gm/dL (13.0-17.5); Lymphocytes # (A) 1.4 k/uL (1.0-4.8); Lymphocytes % (A) 7 %; MCH 29.4 pg (25.0-35.0); MCHC 33.5 g/dL (31.0-37.0); MCV 87.8 fL (80.0-100.0); Mean Platelet Volume 10.3; Monocytes # (A) 1.1 k/uL (0-1.0); Monocytes % (A) 6 %; Neutrophils # (A) 15.8 k/uL (1.3-7.7); Neutrophils % (A) 84 %; Platelet Count 156 k/uL (150-450); Poikilocytosis Slight; RBC 5.13 m/uL (4.30-5.90); RDW 14.4 % (11.5-15.5); WBC 18.8 k/uL (3.8-10.6)
[2021-05-15 06:07] LABS: Calcium 8.1 mg/dL (8.4-10.2); Potassium 4.3 mmol/L (3.5-5.1)
[2021-05-15] MEDS: VANCOMYCIN 1,500 MG in SODIUM CHLORIDE 0.9% 250 ML IVPB SCH ×2 (06:07→17:36)
[2021-05-15] MEDS: SODIUM CHLORIDE 0.9% 1,000 ML IV SCH ×2 (06:08→20:13)
[2021-05-15] MEDS: FAMOTIDINE 20 MG/2 ML VIAL IV SCH ×2 (08:23→20:13)
[2021-05-15] MEDS: ASPIRIN 81 MG PO SCH (08:23)
[2021-05-15] MEDS: CLOPIDOGREL 75 MG TAB PO SCH (08:23)
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
--- NOTE | 2021-05-15 11:29 | P.PN ---
Subjective Progress Note Date: 05/15/21 This is a pleasant 70 years old male with past medical history of Hyperlipidem ia, Hypertension, tinnitus. Patient states that he fell last night when he was standing up trying to get to the bathroom. He still feels some nonspecific dizziness but denies loss of consciousness. He knows he is in the hospital but he could not tell which hospital, he thought it is 1999 2019 and time the president is Oswaldo. However during conversation patient goes back to sleep, he is easily arousable to verbal stimuli before he goes back to sleep shortly thereafter. He denies weakness or numbness in all 4 extremities and he moves them symmetrically. Patient complains from low back pain. And some mild neck pain but no neck stiffness. Patient is poor historian He denies chest pain or dyspnea. No abdominal pain. No diarrhea or vomiting. No urinary dysuria or increased frequency. Patient has fever on admission of 102.4 and blood pressure is borderline 105/58 This creatinine is 1.5, WBC 24.5, sodium 131, lactic acid 2.3 05/13/2021 Patient is still confused today. He denies any specific complaint however his significantly drowsy. Also his tachypnea. He received several doses of normal saline fluid during the night almost 3 L total his lactic acid still elevated at 6. A team was called because of high lactic acid. An repeat chest x-ray showing bilateral infiltrate, pH is 7.4, low pCO2 of 27 and low pO2 of 70. Most of the fluid management and abnormal chest x-ray pulmonary team were consulted who recommended to transfer the patient to the ICU. No fever today. His that HE still elevated at 26. Creatinine is back to normal. Sodium improved 134. Carotid duplex is negative. Blood culture is positive for gram-positive cocci. MRI and MRA of the brain is ordered by neurology team and is pending Lumbar puncture showing elevated pressure. Result is pending. Also patient has hematuria, renal ultrasound is ordered Patient is currently covered with ceftriaxone 2 g twice daily per ID team who also started him on IV vancomycin. Also patient is on acyclovir. IV fluid lower to 75 mL/h but continued per recommendation by pulmonary team. Monitor breathing function Keep holding home medication 05/14/2021 Patient remains in the ICU, breathing improved and lactic acid back to normal and he Currently on normal saline at 75 mL/h. Also his blood pressure is normal and acceptable with SBP 08/14/2029. Mentation has been stable with only small improvement, he still oriented to place only, he knows he is in the hospital since he came in but today he can tell he is also in [facility] however he still confused about time and persons. He has minimal neck pain, low back pain since admission. No severe headache today. No weakness or numbness in extremities. Vitals stable, afebrile. Leukocytosis improving down to 21, but also patient got dexamethasone dose yesterday. Creatinine is back to normal at 0.9 Sodium 132. Lumbar puncture results are consistent with bacterial meningitis with increased nucleated delicacy and low glucose EEG showing no epileptiform activity Remains on ceftriaxone 2 g twice daily and IV vancomycin per ID team. Streptococcus bacteremia is detected. Echocardiogram is ordered and is pending MRI of the brain is pending. Patient kept nothing by mouth and may need surgical evaluation later on. Renal ultrasound show no abnormalities for his mild hematuria, we will repeat urine analysis We will discuss with neurology if it's okay to resume aspirin and Plavix for his recent cardiac stent. Discussed with staff. Currently patient with no chest pain or dyspnea 05/15/2021 Patient is seen and evaluated in the ICU continues to be closely monitored. Patient currently resting comfortably and easily arousable and alert and oriented 2-3. Patient is responding appropriately to questions and commands and following simple commands. Multiple medical consultations including pulmonary, infectious disease, vascular surgery, neurology following closely. Patient underwent LP and fluid analysis cultures are pending aerobic culture thus far showing no growth after 24 hours. Patient had a repeat blood cultures which have shown no growth for 24 hours. Patient is continued on IV vancomycin along with ceftriaxone and infectious disease is following closely. Patient underwent 2-D echo showing mild concentric left ventricular hypertrophy with overall LV systolic function is mild to moderately impaired with an EF of 40-45% with inferior lateral hypokinesis noted along with the aortic valve being trileaflet and mildly thickened with mild aortic regurgitation cannot rule out vegetation, mitral valve is normal with a trace of mitral regurgitation and a trace of tricuspid regurgitation present. MARISABEL recommended and ordered. Will consult cardiology. Labs: wbc Is 18.8, hemoglobin is 15.1, platelets are 156, sodium is 133 with a potassium of 4.3, current creatinine is 1.09, Vanco trough is 13.9 Review of systems CONSTITUTIONAL: No fever, no malaise, no fatigue. HEENT: No recent visual problems or hearing problems. Denied any sore throat. CARDIOVASCULAR: No orthopnea, PND, no palpitations, no syncope. PULMONARY: No shortness of breath, no cough, no hemoptysis. GASTROINTESTINAL: No diarrhea, no nausea, no vomiting, no abdominal pain. Normoactive bowel sounds. Active Medications Acetaminophen (Acetaminophen Tab 325 Mg Tab) 650 mg PO Q6HR PRN PRN Reason: Mild Pain or Fever > 100.5 Last Admin: 05/15/21 01:34 Dose: 650 mg Documented by: Hydrocodone Bitart/Acetaminophen (Hydrocodone/Apap 5-325mg 1 Each Tab) 1 each PO Q4HR PRN PRN Reason: Moderate Pain Last Admin: 05/15/21 05:52 Dose: 1 each Documented by: Albuterol Sulfate (Albuterol Nebulized 2.5 Mg/3 Ml) 2.5 mg INHALATION RT-QID PRN PRN Reason: Shortness Of Breath Aspirin (Aspirin 81 Mg) 81 mg PO DAILY [facility] Last Admin: 05/15/21 08:23 Dose: 81 mg Documented by: Clopidogrel Bisulfate (Clopidogrel 75 Mg Tab) 75 mg PO DAILY [facility] Last Admin: 05/15/21 08:23 Dose: 75 mg Documented by: Famotidine (Famotidine 20 Mg/2 Ml Vial) 20 mg IV Q12HR [facility] Last Admin: 05/15/21 08:23 Dose: 20 mg Documented by: Sodium Chloride (Saline 0.9%) 1,000 mls @ 75 mls/hr IV .[id number] [facility] Last Admin: 05/15/21 06:08 Dose: 75 mls/hr Documented by: Ceftriaxone Sodium 2 gm/ (Sodium Chloride) 50 mls @ 100 mls/hr IVPB Q12HR [facility] Last Admin: 05/15/21 08:23 Dose: 100 mls/hr Documented by: Vancomycin HCl 1,500 mg/ (Sodium Chloride) 250 mls @ 125 mls/hr IVPB Q12H [facility] Last Admin: 05/15/21 06:07 Dose: 125 mls/hr Documented by: Lorazepam (Lorazepam 2 Mg/Ml Inj) 1 mg IV Q4HR PRN PRN Reason: Anxiety Last Admin: 05/13/21 01:55 Dose: 1 mg Documented by: Naloxone HCl (Naloxone 0.4 Mg/Ml 1 Ml Vial) 0.2 mg IV Q2M PRN PRN Reason: Opioid Reversal Ondansetron HCl (Ondansetron 4 Mg/2 Ml Vial) 4 mg IVP Q8HR PRN PRN Reason: Nausea And Vomiting Physical exam: GENERAL: The patient is drowsy but awakes easily responding appropriately and alert and oriented 2-3, well-developed, well-nourished HEENT: Pupils are round and equally reacting to light. EOMI. No scleral icterus. No conjunctival pallor. Normocephalic, atraumatic. No pharyngeal erythema. No thyromegaly. CARDIOVASCULAR: S1 and S2 present. No murmurs, rubs, or gallops. PULMONARY: Chest is clear to auscultation, no wheezing with some scattered rhonchi noted at the bases. ABDOMEN: Soft, nontender, nondistended, normoactive bowel sounds. No palpable organomegaly. MUSCULOSKELETAL: No joint swelling or deformity. EXTREMITIES: Bilateral feet with cyanosis on exam and pulses noted via Doppler, no clubbing, or pedal edema noted. NEUROLOGICAL: Gross neurological examination did not reveal any focal deficits. Diffusely weak SKIN: No rashes. no petechiae. Assessment: Acute bacterial meningitis Streptococcus bacteremia Sepsis with fever and leukocytosis. Gram-positive cocci bacteremia Bilateral pulmonary infiltrate, suspected IV fluid. Pulmonary team still recommend continue IV fluids and monitored closely in the ICU Acute kidney injury, resolved Hematuria Elevated lactic acid Bilateral lower extremity ischemia, looks chronic with right lower extremity more than 70% and left lower extremity about 50% Full code Plan: This is a pleasant 70 years old male who presents with altered mental status, sepsis. Bilateral lower extremity with extensive PAD and claudication, [place], and suspected bacterial meningitis Continue with ceftriaxone, IV vancomycin .infectious disease following closely MRI/A of the brain pending. Neurology following closely. LP analysis is pending at this time. EEG shows no epileptiform activity noted. Continue with gentle hydration and monitor respiratory status. Pulmonary/critical care following Echocardiogram showing LV systolic function mild to moderately impaired with an EF of 40-45% and cannot exclude vegitation and will consult cardiology and possible MARISABEL. Discussed with the neurology and will resume start aspirin and Plavix Resume diet, heart healthy Vascular surgery evaluated the patient and will follow with the patient outpatient and no plans for intervention of the bilateral lower extremities at this time. Labs and medication were reviewed.. Continue same treatment. Continue with symptomatic treatment. Resume home medication. Monitor lytes and vitals. DVT and GI prophylaxis. Further recommendations depends on the clinical course of the patient DVT prophyl: SCD GI Prophylaxis: Pepcid PT/OT pending and will have patient evaluated once more stable. Considering transferring out of the ICU with continued tele monitoring. Prognosis is guarded Objective - Vital Signs Vital signs: Vital Signs Temp 97.5 F L 05/15/21 08:00 Pulse 60 05/15/21 08:00 Resp 12 05/15/21 08:00 BP 106/53 05/15/21 08:00 Pulse Ox 95 05/15/21 08:00 Intake & Output 05/14/21 05/15/21 05/15/21 18:59 06:59 18:59 Intake Total 1650 2025 150 Output Total 645 1025 230 Balance 1005 1000 -80 Intake: IV 825 825 150 Sodium Chloride 0.9% 1, 825 825 150 000 ml @ 75 mls/hr IV . [id number] [facility] Rx#:[id number] Intake, IV Titration 75 Amount Sodium Chloride 0.9% 1, 75 000 ml @ 130 mls/hr IV . [id number] [facility] Rx#:[id number] Oral 750 1200 Output: Urine 645 1025 230 Other: Voiding Method Indwelling Catheter Indwelling Catheter - Labs CBC & Chem 7: 05/15/21 05:37 05/15/21 05:37 Labs: Abnormal Lab Results - Last 24 Hours (Table) 05/14/21 05/15/21 05/15/21 Range/Units 10:45 05:37 05:37 WBC 18.8 H (3.8-10.6) k/uL Neutrophils # 15.8 H (1.3-7.7) k/uL Monocytes # 1.1 H (0-1.0) k/uL Sodium 133 L (137-145) mmol/L BUN 25 H (9-20) mg/dL Glucose 106 H (74-99) mg/dL Calcium 8.1 L (8.4-10.2) mg/dL Urine Protein 1+ H (Negative) Urine Blood Moderate H (Negative) Ur Leukocyte Esterase Small H (Negative) Urine RBC 105 H (0-5) /hpf Urine WBC 12 H (0-5) /hpf Urine Bacteria Occasional H (None) /hpf Urine Mucus Occasional H (None) /hpf Microbiology - Last 24 Hours (Table) 05/13/21 17:23 Blood Culture - Preliminary Blood No Growth after 24 hours 05/12/21 19:59 Blood Culture Gram Stain - Preliminary Blood Blood Culture - Preliminary Streptococcus pneumoniae 05/12/21 19:55 Blood Culture Gram Stain - Preliminary Blood Blood Culture - Preliminary Streptococcus pneumoniae 05/13/21 11:15 CSF Gram Stain - Preliminary Cerebral Spinal Fluid CSF Culture - Preliminary
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
[2021-05-15] MEDS: HYDROmorphone 0.5 MG/0.5 ML SYRINGE IVP PRN ×3 (17:33→23:51)
--- NOTE | 2021-05-15 18:08 | PN ---
PROGRESS NOTE DATE OF SERVICE: 05/15/2021 REASON FOR FOLLOW UP: Strep pneumo bacteremia and meningitis. INTERVAL HISTORY: The patient is afebrile. The patient is more awake and alert. The patient mentioned a headache which resolved. No chest pain, no shortness of breath. Occasional cough. No abdominal pain, no diarrhea. PHYSICAL EXAMINATION: Blood pressure 132/79, pulse of ( ), temperature 97.9. 94% on room air. General description is an elderly male lying in bed in no distress. Respiratory system: Unlabored breathing, clear to auscultation anteriorly. Heart S1, S2. Regular rate and rhythm. Abdomen soft, no tenderness. Extremities: No edema of the feet. LABS: Hemoglobin 13.8, white count 18.8, creatinine 1.09. Vanco trough 13.9. ( ) the strep pneumo in blood culture so far pending. DIAGNOSTIC IMPRESSION AND PLAN: Patient with strep pneumo bacteremia secondary to the meningitis. Patient is covered with Rocephin and vancomycin to continue while waiting for cultures to finalize and monitor clinical course closely. Continue supportive care. MMODL / IJN: [id number] /
--- NOTE | 2021-05-15 21:50 | P.PN ---
Subjective Progress Note Date: 05/15/21 Patient complaining of severe low back pain which he rates greater than 10/10. Does not feel comfortable in any position. Appears in distress. Morning. Patient denies headache at this time. Patient's feet are blue, which he attributes to peripheral neuropathy. No seizures. No dizziness. Objective - Vital Signs Vital signs: Vital Signs Temp 97.9 F 05/15/21 20:00 Pulse 56 L 05/15/21 20:00 Resp 16 05/15/21 20:00 BP 147/91 05/15/21 20:00 Pulse Ox 93 L 05/15/21 20:00 Intake & Output 05/15/21 05/15/21 05/16/21 06:59 18:59 06:59 Intake Total 2025 750 Output Total 1025 855 Balance 1000 -105 Intake: IV 825 750 Sodium Chloride 0.9% 1, 825 750 000 ml @ 75 mls/hr IV . [id number] [facility] Rx#:[id number] Oral 1200 Output: Urine 1025 855 Other: Voiding Method Indwelling Catheter Indwelling Catheter Indwelling Catheter - Exam Patient is alert and awake, appears to be in distress because of severe low back pain. Appears genuinely in pain. Detailed testing deferred. Mentation, speech and Language functions are normal. Cranial nerves are normal. - Labs CBC & Chem 7: 05/15/21 05:37 05/15/21 05:37 Labs: Abnormal Lab Results - Last 24 Hours (Table) 05/15/21 05/15/21 Range/Units 05:37 05:37 WBC 18.8 H (3.8-10.6) k/uL Neutrophils # 15.8 H (1.3-7.7) k/uL Monocytes # 1.1 H (0-1.0) k/uL Sodium 133 L (137-145) mmol/L BUN 25 H (9-20) mg/dL Glucose 106 H (74-99) mg/dL Calcium 8.1 L (8.4-10.2) mg/dL Microbiology - Last 24 Hours (Table) 05/13/21 17:23 Blood Culture - Preliminary Blood No Growth after 48 hours 05/12/21 19:59 Blood Culture Gram Stain - Final Blood Blood Culture - Final Streptococcus pneumoniae 05/12/21 19:55 Blood Culture Gram Stain - Final Blood Blood Culture - Final Streptococcus pneumoniae 05/13/21 11:15 CSF Gram Stain - Preliminary Cerebral Spinal Fluid CSF Culture - Preliminary Assessment and Plan Assessment: * Bacterial meningitis due to Streptococcus pneumonia. CSF cultures positive. * Acute low back pain, rule out epidural abscess or other structural abn ormalities. * Bacteremia with streptococcus pneumonia. * Hyponatremia * Mild renal insufficiency * Peripheral arterial disease * Hypertension * Hyperlipidemia * Coronary artery disease Plan: * MRI lumbar spine, with and without contrast rule out epidural abscess. * Patient's lumbar puncture showed CSF is cloudy, opening pressure was 47 cm. CSF xanthochromic, with white cells 3350, although patient 97% R polynuclear and 3% mononuclear cells, RBC 175. Total proteins are > 600, glucose <20. CSF has grown. Gram-positive cocci. Viral cultures negative. * Patient's blood culture positive for Streptococcus pneumoniae. Continue ceftriaxone 2 g every 12 hours, meningeal dose. Patient also started on vancomycin. * Acyclovir has been discontinued by ID. vital cultures negative. * Patient is remarkably improved. * Patient's renal functions are stable. * EEG was abnormal due to background slowing of mild to moderate degree. This is suggestive of generalized cerebral dysfunction as can be seen with toxic metabolic encephalopathy or due to diffuse structural brain abnormality. No epileptiform activity was seen. * Await MRI of the brain with and without contrast. * Carotid Doppler shows no carotid stenosis. Antegrade flow in vertebral arteries. * Resume dual antiplatelet medications. * DVT prophylaxis as per IM/critical care.
[2021-05-16] MEDS: HYDROmorphone 0.5 MG/0.5 ML SYRINGE IVP PRN (05:19)
[2021-05-16] MEDS: VANCOMYCIN 1,500 MG in SODIUM CHLORIDE 0.9% 250 ML IVPB SCH (05:20)
[2021-05-16] MEDS: SODIUM CHLORIDE 0.9% 1,000 ML IV SCH ×2 (05:20→23:59)
[2021-05-16 06:07] LABS: Basophils % (A) 0 %; Eosinophils # (A) 0.1 k/uL (0-0.7); Eosinophils % (A) 0 %; HCT 48.5 % (39.0-53.0); HGB 15.7 gm/dL (13.0-17.5); Lymphocytes # (A) 1.1 k/uL (1.0-4.8); Lymphocytes % (A) 6 %; MCH 29.1 pg (25.0-35.0); MCHC 32.4 g/dL (31.0-37.0); MCV 89.8 fL (80.0-100.0); Mean Platelet Volume 9.1; Monocytes # (A) 1.3 k/uL (0-1.0); Monocytes % (A) 8 %; Neutrophils # (A) 14.8 k/uL (1.3-7.7); Neutrophils % (A) 84 %; Platelet Count 187 k/uL (150-450); RDW 14.3 % (11.5-15.5); WBC 17.6 k/uL (3.8-10.6)
[2021-05-16 06:39] LABS: African American GFR (CKD) >90 (>60 ml/min/1.73 sqM); Anion Gap 6 mmol/L; Blood Urea Nitrogen 18 mg/dL (9-20); Calcium 8.2 mg/dL (8.4-10.2); Carbon Dioxide 19 mmol/L (22-30); Chloride 107 mmol/L (98-107); Glucose 119 mg/dL (74-99); Non-African American GFR(CKD) 89 (>60 ml/min/1.73 sqM); Potassium 4.6 mmol/L (3.5-5.1); Sodium 132 mmol/L (137-145)
[2021-05-16] MEDS: CLOPIDOGREL 75 MG TAB PO SCH (08:37)
[2021-05-16] MEDS: ASPIRIN 81 MG PO SCH (08:37)
[2021-05-16] MEDS: FAMOTIDINE 20 MG/2 ML VIAL IV SCH ×2 (08:38→23:33)
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
[2021-05-16] MEDS ORDERED: fentaNYL (PF) 50 MCG/ML 2 ML AMP ONE (11:28)
[2021-05-16] MEDS ORDERED: IV FLUID CONTINUATION 1,000 ML IV ONE (11:41)
[2021-05-16] MEDS: BENZOCAINE SPRAY 1 CAN MUCOUS MEM ONE ×2 (11:52→12:12)
[2021-05-16] MEDS ORDERED: fentaNYL (PF) 50 MCG/ML 2 ML AMP IV ONE ×2 (12:12)
[2021-05-16] MEDS ORDERED: MIDAZOLAM 2 MG/2 ML VIAL IV ONE ×2 (12:12→12:13)
--- NOTE | 2021-05-16 14:11 | ECHOT ---
TRANSESOPHAGEAL ECHOCARDIOGRAM DATE OF STUDY: 05/16/2021 PERFORMING PHYSICIAN: Heriberto John M.D. PROCEDURE PERFORMED: Transesophageal echocardiogram. INDICATION: Rule out endocarditis. COMPLICATIONS: None. LEVEL OF SEDATION: Moderate, with sedation length of 10 minutes. PROCEDURE DESCRIPTION: After obtaining informed consent, the patient was brought to the transesophageal echocardiogram suite. Pulse oximetry and heart rate monitors were attached to the patient. Subsequently the patient was turned into left lateral position. Subsequently the transesophageal echocardiogram was advanced through the bite guard to the mid esophagus, where 2D echocardiogram images as well as color Doppler images as well as continuous and pulse-wave Doppler images were obtained from multiple angles. The procedure was completed without any complication. FINDINGS: The left ventricular dimension and systolic function appeared to be within normal limits. The ejection fraction appeared to be within normal limits with EF between 50% and 55%. The right ventricle appeared to be within normal limits for dimension. The aortic valve appeared to be a trileaflet valve without stenosis with mild insufficiency. The mitral valve seems to be normal with mild MR. There was a normal tricuspid valve and pulmonic valve. The left atrial appendage appeared to be free from any thrombus. No evidence of endocarditis identified. CONCLUSION: 1. No evidence of infective endocarditis was identified. 2. Trileaflet aortic valve without stenosis with mild insufficiency. 3. Thickened mitral valve leaflets with mild MR only. 4. Normal tricuspid valve and pulmonic valve. 5. Normal left ventricular dimension and systolic function. 6. No evidence of pericardial effusion. MMODL / IJN: [id number] /
--- NOTE | 2021-05-16 16:19 | P.PN ---
Subjective Progress Note Date: 05/16/21 This is a pleasant 70 years old male with past medical history of Hyperlipidem ia, Hypertension, tinnitus. Patient states that he fell last night when he was standing up trying to get to the bathroom. He still feels some nonspecific dizziness but denies loss of consciousness. He knows he is in the hospital but he could not tell which hospital, he thought it is 1999 2019 and time the president is Oswaldo. However during conversation patient goes back to sleep, he is easily arousable to verbal stimuli before he goes back to sleep shortly thereafter. He denies weakness or numbness in all 4 extremities and he moves them symmetrically. Patient complains from low back pain. And some mild neck pain but no neck stiffness. Patient is poor historian He denies chest pain or dyspnea. No abdominal pain. No diarrhea or vomiting. No urinary dysuria or increased frequency. Patient has fever on admission of 102.4 and blood pressure is borderline 105/58 This creatinine is 1.5, WBC 24.5, sodium 131, lactic acid 2.3 05/13/2021 Patient is still confused today. He denies any specific complaint however his significantly drowsy. Also his tachypnea. He received several doses of normal saline fluid during the night almost 3 L total his lactic acid still elevated at 6. A team was called because of high lactic acid. An repeat chest x-ray showing bilateral infiltrate, pH is 7.4, low pCO2 of 27 and low pO2 of 70. Most of the fluid management and abnormal chest x-ray pulmonary team were consulted who recommended to transfer the patient to the ICU. No fever today. His that HE still elevated at 26. Creatinine is back to normal. Sodium improved 134. Carotid duplex is negative. Blood culture is positive for gram-positive cocci. MRI and MRA of the brain is ordered by neurology team and is pending Lumbar puncture showing elevated pressure. Result is pending. Also patient has hematuria, renal ultrasound is ordered Patient is currently covered with ceftriaxone 2 g twice daily per ID team who also started him on IV vancomycin. Also patient is on acyclovir. IV fluid lower to 75 mL/h but continued per recommendation by pulmonary team. Monitor breathing function Keep holding home medication 05/14/2021 Patient remains in the ICU, breathing improved and lactic acid back to normal and he Currently on normal saline at 75 mL/h. Also his blood pressure is normal and acceptable with SBP 08/14/2029. Mentation has been stable with only small improvement, he still oriented to place only, he knows he is in the hospital since he came in but today he can tell he is also in [facility] however he still confused about time and persons. He has minimal neck pain, low back pain since admission. No severe headache today. No weakness or numbness in extremities. Vitals stable, afebrile. Leukocytosis improving down to 21, but also patient got dexamethasone dose yesterday. Creatinine is back to normal at 0.9 Sodium 132. Lumbar puncture results are consistent with bacterial meningitis with increased nucleated delicacy and low glucose EEG showing no epileptiform activity Remains on ceftriaxone 2 g twice daily and IV vancomycin per ID team. Streptococcus bacteremia is detected. Echocardiogram is ordered and is pending MRI of the brain is pending. Patient kept nothing by mouth and may need surgical evaluation later on. Renal ultrasound show no abnormalities for his mild hematuria, we will repeat urine analysis We will discuss with neurology if it's okay to resume aspirin and Plavix for his recent cardiac stent. Discussed with staff. Currently patient with no chest pain or dyspnea 05/15/2021 Patient is seen and evaluated in the ICU continues to be closely monitored. Patient currently resting comfortably and easily arousable and alert and oriented 2-3. Patient is responding appropriately to questions and commands and following simple commands. Multiple medical consultations including pulmonary, infectious disease, vascular surgery, neurology following closely. Patient underwent LP and fluid analysis cultures are pending aerobic culture thus far showing no growth after 24 hours. Patient had a repeat blood cultures which have shown no growth for 24 hours. Patient is continued on IV vancomycin along with ceftriaxone and infectious disease is following closely. Patient underwent 2-D echo showing mild concentric left ventricular hypertrophy with overall LV systolic function is mild to moderately impaired with an EF of 40-45% with inferior lateral hypokinesis noted along with the aortic valve being trileaflet and mildly thickened with mild aortic regurgitation cannot rule out vegetation, mitral valve is normal with a trace of mitral regurgitation and a trace of tricuspid regurgitation present. MARISABEL recommended and ordered. Will consult cardiology. 05/16/2021 Patient is seen in follow-up this morning continues in the ICU with close monitoring. neurology following as well and has ordered MR lumbar spine and bra in which is currently pending. plan is for possible MARISABEL in the morning. Patient continues to be lethargic although easily arousable and is responding appropriately to questions and commands and following commands. Patient is continued on IV vancomycin and ceftriaxonewith infectious disease following closely. blood cultures have remained negative and CSF cultures pending. Labs: wbc Is 17.6, hemoglobin is 15.7, platelets are 187, sodium is 132 with a potassium of 4.6, current creatinine is .85 Review of systems CONSTITUTIONAL: No fever, no malaise, reports fatigue. HEENT: No recent visual problems or hearing problems. Denied any sore throat. CARDIOVASCULAR: No orthopnea, PND, no palpitations, no syncope. PULMONARY: No shortness of breath, no cough, no hemoptysis. GASTROINTESTINAL: No diarrhea, no nausea, no vomiting, no abdominal pain. Normoactive bowel sounds. Active Medications Acetaminophen (Acetaminophen Tab 325 Mg Tab) 650 mg PO Q6HR PRN PRN Reason: Mild Pain or Fever > 100.5 Last Admin: 05/15/21 01:34 Dose: 650 mg Documented by: Hydrocodone Bitart/Acetaminophen (Hydrocodone/Apap 5-325mg 1 Each Tab) 1 each PO Q4HR PRN PRN Reason: Moderate Pain Last Admin: 05/15/21 16:31 Dose: 1 each Documented by: Albuterol Sulfate (Albuterol Nebulized 2.5 Mg/3 Ml) 2.5 mg INHALATION RT-QID PRN PRN Reason: Shortness Of Breath Aspirin (Aspirin 81 Mg) 81 mg PO DAILY [facility] Last Admin: 05/16/21 08:37 Dose: 81 mg Documented by: Clopidogrel Bisulfate (Clopidogrel 75 Mg Tab) 75 mg PO DAILY [facility] Last Admin: 05/16/21 08:37 Dose: 75 mg Documented by: Famotidine (Famotidine 20 Mg/2 Ml Vial) 20 mg IV Q12HR [facility] Last Admin: 05/16/21 08:38 Dose: 20 mg Documented by: Hydromorphone HCl (Hydromorphone 0.5 Mg/0.5 Ml Syringe) 0.5 mg IVP Q2H PRN PRN Reason: Pain Last Admin: 05/16/21 05:19 Dose: 0.5 mg Documented by: Sodium Chloride (Saline 0.9%) 1,000 mls @ 75 mls/hr IV .[id number] [facility] Last Admin: 05/16/21 05:20 Dose: 75 mls/hr Documented by: Ceftriaxone Sodium 2 gm/ (Sodium Chloride) 50 mls @ 100 mls/hr IVPB Q12HR [facility] Last Admin: 05/16/21 08:37 Dose: 100 mls/hr Documented by: Lorazepam (Lorazepam 2 Mg/Ml Inj) 1 mg IV Q4HR PRN PRN Reason: Anxiety Last Admin: 05/13/21 01:55 Dose: 1 mg Documented by: Naloxone HCl (Naloxone 0.4 Mg/Ml 1 Ml Vial) 0.2 mg IV Q2M PRN PRN Reason: Opioid Reversal Ondansetron HCl (Ondansetron 4 Mg/2 Ml Vial) 4 mg IVP Q8HR PRN PRN Reason: Nausea And Vomiting Physical exam: GENERAL: The patient is drowsy but awakes easily responding appropriately and alert and oriented 2-3, well-developed, well-nourished HEENT: Pupils are round and equally reacting to light. EOMI. No scleral icterus. No conjunctival pallor. Normocephalic, atraumatic. No pharyngeal erythema. No thyromegaly. CARDIOVASCULAR: S1 and S2 present. No murmurs, rubs, or gallops. PULMONARY: Chest is clear to auscultation, no wheezing with some scattered rhonchi noted at the bases. ABDOMEN: Soft, nontender, nondistended, normoactive bowel sounds. No palpable organomegaly. MUSCULOSKELETAL: No joint swelling or deformity. EXTREMITIES: Bilateral feet and bilateral hands arrangedwith cyanosis on exam and pulses noted via Doppler, no clubbing, or pedal edema noted. NEUROLOGICAL: Gross neurological examination did not reveal any focal deficits. Diffusely weak SKIN: No rashes. no petechiae. Assessment: Acute bacterial meningitis Streptococcus bacteremia Sepsis with fever and leukocytosis. Gram-positive cocci bacteremia Bilateral pulmonary infiltrate, suspected IV fluid. Pulmonary team still recommend continue IV fluids and monitored closely in the ICU Acute kidney injury, resolved Hematuria Elevated lactic acid Bilateral lower extremity ischemia, looks chronic with right lower extremity more than 70% and left lower extremity about 50% Full code Plan: This is a pleasant 70 years old male who presents with altered mental status, sepsis. Bilateral lower extremity with extensive PAD and claudication, [place], and suspected bacterial meningitis Continue with ceftriaxone, IV vancomycin .infectious disease following closely MRI/A of the brain pending. Neurology following closely. LP analysis is pending at this time. EEG shows no epileptiform activity noted. Continue with gentle hydration and monitor respiratory status. Pulmonary/critical care following Echocardiogram showing LV systolic function mild to moderately impaired with an EF of 40-45% and cannot exclude vegitation and cardiology following and plan for MARISABEL tomorrow Discussed with the neurology and will resume start aspirin and Plavix Resume diet, heart healthy Vascular surgery evaluated the patient and will follow with the patient outpatient and no plans for intervention of the bilateral lower extremities as well as upper extremities at this time. Labs and medication were reviewed.. Continue same treatment. Continue with symptomatic treatment. Resume home medication. Monitor lytes and vitals. DVT and GI prophylaxis. Further recommendations depends on the clinical course of the patient DVT prophyl: SCD GI Prophylaxis: Pepcid PT/OT pending and will have patient evaluated once more stable. Considering transferring out of the ICU with continued tele monitoring. Prognosis is guarded Objective - Vital Signs Vital signs: Vital Signs Temp 98.5 F 05/16/21 02:00 Pulse 65 05/16/21 02:00 Resp 14 05/16/21 02:00 BP 159/97 05/16/21 02:00 Pulse Ox 98 05/16/21 02:00 Intake & Output 05/15/21 05/16/21 05/16/21 18:59 06:59 18:59 Intake Total 750 1350 Output Total 855 1400 Balance -105 -50 Intake: IV 750 1050 Sodium Chloride 0.9% 1, 750 1050 000 ml @ 75 mls/hr IV . [id number] [facility] Rx#:[id number] Intake, IV Titration 300 Amount Vancomycin 1,500 mg In 250 Sodium Chloride 0.9% 250 ml @ 125 mls/hr IVPB Q12H [facility] Rx#:[id number] cefTRIAXone 2 gm In 50 Sodium Chloride 0.9% 50 ml @ 100 mls/hr IVPB Q12HR [facility] Rx#:[id number] Output: Urine 855 1400 Other: Voiding Method Indwelling Catheter Indwelling Catheter - Labs CBC & Chem 7: 05/16/21 05:49 05/16/21 05:49 Labs: Abnormal Lab Results - Last 24 Hours (Table) 05/16/21 05/16/21 Range/Units 05:49 05:49 WBC 17.6 H (3.8-10.6) k/uL Neutrophils # 14.8 H (1.3-7.7) k/uL Monocytes # 1.3 H (0-1.0) k/uL Sodium 132 L (137-145) mmol/L Carbon Dioxide 19 L (22-30) mmol/L Glucose 119 H (74-99) mg/dL Calcium 8.2 L (8.4-10.2) mg/dL Microbiology - Last 24 Hours (Table) 05/12/21 19:55 Blood Culture Gram Stain - Final Blood Blood Culture - Final Streptococcus pneumoniae 05/15/21 05:37 Blood Culture - Preliminary Blood No Growth after 24 hours 05/13/21 17:23 Blood Culture - Preliminary Blood No Growth after 48 hours 05/12/21 19:59 Blood Culture Gram Stain - Final Blood Blood Culture - Final Streptococcus pneumoniae 05/13/21 11:15 CSF Gram Stain - Preliminary Cerebral Spinal Fluid CSF Culture - Preliminary
--- NOTE | 2021-05-16 16:55 | PN ---
PROGRESS NOTE DATE OF SERVICE: 05/16/2021 REASON FOR FOLLOWUP: Streptococcal pneumonia meningitis with bacteremia. INTERVAL HISTORY: The patient is afebrile. The patient is breathing comfortably. The patient's headache has improved. No chest pain, shortness of breath or cough. No abdominal pain. Did complain of some pain to the lower extremity. PHYSICAL EXAMINATION: Blood pressure 155/94 with a pulse of 74, temperature 97.8. He is 98% on room air. General description is an elderly male lying in bed in no distress. RESPIRATORY SYSTEM: Unlabored breathing. Decreased breath sounds at the bases. No wheeze. HEART: S1, S2. Regular rate and rhythm. ABDOMEN: Soft. No tenderness. LABS: Hemoglobin is 15.3, white count 17.6. Creatinine is 0.85. Blood culture repeat has been negative so far. DIAGNOSTIC IMPRESSION AND PLAN: Patient with Streptococcus pneumoniae bacteremia secondary to acute bacterial meningitis in this patient who seems to have shown overall clinical improvement. With the organism being sensitive, vancomycin will be discontinued. Continue the patient on Rocephin and monitor his clinical course closely. MMODL / IJN: [id number] /
--- NOTE | 2021-05-16 18:08 | P.PN ---
Subjective Progress Note Date: 05/16/21 patient appears much more comfortable today. Very pleasant. Patient states the headache is 2/10. The low back pain has also improved, only 2/10. Neck is a little stiff. Objective - Vital Signs Vital signs: Vital Signs Temp 97.8 F 05/16/21 14:00 Pulse 66 05/16/21 14:00 Resp 19 05/16/21 14:00 BP 155/94 05/16/21 14:00 Pulse Ox 98 05/16/21 14:00 Intake & Output 05/15/21 05/16/21 05/16/21 18:59 06:59 18:59 Intake Total 750 1350 925 Output Total 855 1400 655 Balance -105 -50 270 Intake: IV 750 1050 925 Sodium Chloride 0.9% 1, 750 1050 675 000 ml @ 75 mls/hr IV . [id number] [facility] Rx#:[id number] cefTRIAXone 2 gm In 50 Sodium Chloride 0.9% 50 ml @ 100 mls/hr IVPB Q12HR [facility] Rx#:[id number] Intake, IV Titration 300 Amount Vancomycin 1,500 mg In 250 Sodium Chloride 0.9% 250 ml @ 125 mls/hr IVPB Q12H [facility] Rx#:[id number] cefTRIAXone 2 gm In 50 Sodium Chloride 0.9% 50 ml @ 100 mls/hr IVPB Q12HR [facility] Rx#:[id number] Output: Urine 855 1400 655 Other: Voiding Method Indwelling Catheter Indwelling Catheter Indwelling Catheter - Exam Patient is alert and awake, in no acute distress. Speech and language functions are normal. Patient states it is April 2021 and that he is in [facility] in [place]. Cranial nerves are normal. Muscle strength is normal in both arms distally and proximally. Lower extremities are very weak bilaterally. Hip flexion is 3+, ankle dorsiflexion 3+. - Labs CBC & Chem 7: 05/16/21 05:49 05/16/21 05:49 Labs: Abnormal Lab Results - Last 24 Hours (Table) 05/16/21 05/16/21 Range/Units 05:49 05:49 WBC 17.6 H (3.8-10.6) k/uL Neutrophils # 14.8 H (1.3-7.7) k/uL Monocytes # 1.3 H (0-1.0) k/uL Sodium 132 L (137-145) mmol/L Carbon Dioxide 19 L (22-30) mmol/L Glucose 119 H (74-99) mg/dL Calcium 8.2 L (8.4-10.2) mg/dL Microbiology - Last 24 Hours (Table) 05/13/21 11:15 CSF Gram Stain - Preliminary Cerebral Spinal Fluid CSF Culture - Preliminary 05/12/21 19:55 Blood Culture Gram Stain - Final Blood Blood Culture - Final Streptococcus pneumoniae 05/15/21 05:37 Blood Culture - Preliminary Blood No Growth after 24 hours 05/13/21 17:23 Blood Culture - Preliminary Blood No Growth after 48 hours 05/12/21 19:59 Blood Culture Gram Stain - Final Blood Blood Culture - Final Streptococcus pneumoniae Assessment and Plan Assessment: * Bacterial meningitis due to Streptococcus pneumonia. CSF cultures positive. * Acute low back pain, much improved. Patient continues to be severely weak in bilateral lower extremities. Rule out spinal stenosis. * Bacteremia with streptococcus pneumonia. * Hyponatremia * Mild renal insufficiency * Peripheral arterial disease * Hypertension * Hyperlipidemia * Coronary artery disease Plan: * MRI lumbar spine, with and without contrast rule out epidural abscess, rule out spinal stenosis. Patient's headache has almost resolved. We will cancel MRI of the brain. Discussed with ID as well, and in agreement. * Patient's lumbar puncture showed CSF is cloudy, opening pressure was 47 cm. CSF xanthochromic, with white cells 3350, although patient 97% R polynuclear and 3% mononuclear cells, RBC 175. Total proteins are > 600, glucose <20. CSF has grown. Gram-positive cocci. Viral cultures negative. * Patient's blood culture positive for Streptococcus pneumoniae. Continue ceftriaxone 2 g every 12 hours, meningeal dose. Patient also started on vancomycin. * Acyclovir has been discontinued by ID. vital cultures negative. * Patient is remarkably improved. * Patient's renal functions are stable. * EEG was abnormal due to background slowing of mild to moderate degree. This is suggestive of generalized cerebral dysfunction as can be seen with toxic metabolic encephalopathy or due to diffuse structural brain abnormality. No epileptiform activity was seen. * Carotid Doppler shows no carotid stenosis. Antegrade flow in vertebral arteries. * Resume dual antiplatelet medications. * DVT prophylaxis as per IM/critical care.
[2021-05-16] MEDS ORDERED: HALOPERIDOL LACTATE 5 MG/ML 1 ML VIAL IM PRN (21:54)
[2021-05-16] MEDS ORDERED: HALOPERIDOL LACTATE 5 MG/ML 1 ML VIAL ONE (21:58)
[2021-05-17] MEDS ORDERED: cefTRIAXone 1,000 MG VIAL (IM USE) IM STA (01:06)
[2021-05-17 05:36] LABS: African American GFR (CKD) >90 (>60 ml/min/1.73 sqM); Non-African American GFR(CKD) 88 (>60 ml/min/1.73 sqM)
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
[2021-05-17 08:17] LABS: Basophils % (A) 0 %; Eosinophils # (A) 0.1 k/uL (0-0.7); Eosinophils % (A) 0 %; HCT 44.7 % (39.0-53.0); HGB 14.7 gm/dL (13.0-17.5); Lymphocytes # (A) 1.4 k/uL (1.0-4.8); Lymphocytes % (A) 7 %; MCH 29.3 pg (25.0-35.0); MCHC 32.9 g/dL (31.0-37.0); MCV 88.9 fL (80.0-100.0); Mean Platelet Volume 11.4; Monocytes # (A) 1.9 k/uL (0-1.0); Monocytes % (A) 9 %; Neutrophils # (A) 17.3 k/uL (1.3-7.7); Neutrophils % (A) 82 %; Platelet Count 260 k/uL (150-450); RBC 5.03 m/uL (4.30-5.90); RDW 14.2 % (11.5-15.5); WBC 21.1 k/uL (3.8-10.6)
[2021-05-17 08:44] LABS: ALT 19 U/L (4-49); AST 32 U/L (17-59); African American GFR (CKD) >90 (>60 ml/min/1.73 sqM); Albumin 2.6 g/dL (3.5-5.0); Alkaline Phosphatase 65 U/L (38-126); Anion Gap 9 mmol/L; Blood Urea Nitrogen 15 mg/dL (9-20); Calcium 8.3 mg/dL (8.4-10.2); Carbon Dioxide 22 mmol/L (22-30); Chloride 103 mmol/L (98-107); Glucose 92 mg/dL (74-99); Non-African American GFR(CKD) 88 (>60 ml/min/1.73 sqM); Potassium 3.8 mmol/L (3.5-5.1); Sodium 134 mmol/L (137-145); Total Bilirubin 1.4 mg/dL (0.2-1.3); Total Protein 5.7 g/dL (6.3-8.2)
[2021-05-17] MEDS: CLOPIDOGREL 75 MG TAB PO SCH (08:55)
[2021-05-17] MEDS: FAMOTIDINE 20 MG/2 ML VIAL IV SCH ×2 (08:55→23:07)
[2021-05-17] MEDS: ASPIRIN 81 MG PO SCH (08:55)
--- NOTE | 2021-05-17 11:26 | P.PN ---
Subjective This is a pleasant 70 years old male with past medical history of Hyperlipidemia, Hypertension, tinnitus. Patient states that he fell last night when he was standing up trying to get to the bathroom. He still feels some nonspecific dizziness but denies loss of consciousness. He knows he is in the hospital but he could not tell which hospital, he thought it is 1999 2019 and time the president is Oswaldo. However during conversation patient goes back to sleep, he is easily arousable to verbal stimuli before he goes back to sleep shortly thereafter. He denies weakness or numbness in all 4 extremities and he moves them symmetrically. Patient complains from low back pain. And some mild neck pain but no neck stiffness. Patient is poor historian He denies chest pain or dyspnea. No abdominal pain. No diarrhea or vomiting. No urinary dysuria or increased frequency. Patient has fever on admission of 102.4 and blood pressure is borderline 105/58 This creatinine is 1.5, WBC 24.5, sodium 131, lactic acid 2.3 05/13/2021 Patient is still confused today. He denies any specific complaint however his significantly drowsy. Also his tachypnea. He received several doses of normal saline fluid during the night almost 3 L total his lactic acid still elevated at 6. A team was called because of high lactic acid. An repeat chest x-ray showing bilateral infiltrate, pH is 7.4, low pCO2 of 27 and low pO2 of 70. Most of the fluid management and abnormal chest x-ray pulmonary team were consulted who recommended to transfer the patient to the ICU. No fever today. His that HE still elevated at 26. Creatinine is back to normal. Sodium improved 134. Carotid duplex is negative. Blood culture is positive for gram-positive cocci. MRI and MRA of the brain is ordered by neurology team and is pending Lumbar puncture showing elevated pressure. Result is pending. Also patient has hematuria, renal ultrasound is ordered Patient is currently covered with ceftriaxone 2 g twice daily per ID team who also started him on IV vancomycin. Also patient is on acyclovir. IV fluid lower to 75 mL/h but continued per recommendation by pulmonary team. Monitor breathing function Keep holding home medication 05/14/2021 Patient remains in the ICU, breathing improved and lactic acid back to normal and he Currently on normal saline at 75 mL/h. Also his blood pressure is normal and acceptable with SBP 08/14/2029. Mentation has been stable with only small improvement, he still oriented to place only, he knows he is in the hospital since he came in but today he can tell he is also in [facility] however he still confused about time and persons. He has minimal neck pain, low back pain since admission. No severe headache today. No weakness or numbness in extremities. Vitals stable, afebrile. Leukocytosis improving down to 21, but also patient got dexamethasone dose yesterday. Creatinine is back to normal at 0.9 Sodium 132. Lumbar puncture results are consistent with bacterial meningitis with increased nucleated delicacy and low glucose EEG showing no epileptiform activity Remains on ceftriaxone 2 g twice daily and IV vancomycin per ID team. Streptococcus bacteremia is detected. Echocardiogram is ordered and is pending MRI of the brain is pending. Patient kept nothing by mouth and may need surgical evaluation later on. Renal ultrasound show no abnormalities for his mild hematuria, we will repeat urine analysis We will discuss with neurology if it's okay to resume aspirin and Plavix for his recent cardiac stent. Discussed with staff. Currently patient with no chest pain or dyspnea 05/15/2021 Patient is in the ICU, his general medical floor overflow. Last night he was agitated, he developed low-grade temperature apparent 100. And his leukocytosis likely went up to 21K. Haldol when necessary has been added this morning is stable, calm sitting in chair, little groggy and lethargic from Haldol last night. He remains on ceftriaxone and IV vancomycin as per ID team recommendation. Rest of Vitas looks stable. Labs reviewed. Besides antibiotics and also he is on normal saline at 75 mL/h. Resumed his aspirin and Plavix. MRI of the brain has consulted by neurology service. MRI of the lumbar spine is still pending. Rule out epidural abscess per neurology service. MARISABEL is negative for vegetations Objective - Vital Signs Vital signs: Vital Signs Temp 100.0 F H 05/17/21 02:00 Pulse 67 05/17/21 08:00 Resp 18 05/17/21 08:00 BP 155/97 05/17/21 08:00 Pulse Ox 94 L 05/17/21 08:00 Intake & Output 05/16/21 05/17/21 05/17/21 18:59 06:59 18:59 Intake Total 925 Output Total 655 300 300 Balance 270 -300 -300 Intake: IV 925 Sodium Chloride 0.9% 1, 675 000 ml @ 75 mls/hr IV . [id number] [facility] Rx#:[id number] cefTRIAXone 2 gm In 50 Sodium Chloride 0.9% 50 ml @ 100 mls/hr IVPB Q12HR [facility] Rx#:[id number] Output: Urine 655 300 300 Other: Voiding Method Indwelling Catheter Incontinent Incontinent # Voids 3 1 - Exam -GENERAL: The patient is confused and drowsy HEENT: Pupils are round and equally reacting to light. EOMI. No scleral icterus. No conjunctival pallor. Normocephalic, atraumatic. No pharyngeal erythema. No thyromegaly. CARDIOVASCULAR: S1 and S2 present. No murmurs, rubs, or gallops. -PULMONARY: Chest is clear to auscultation, no wheezing. The kidney The With bilateral crepitation ABDOMEN: Soft, nontender, nondistended, normoactive bowel sounds. No palpable organomegaly. MUSCULOSKELETAL: No joint swelling or deformity. EXTREMITIES: No cyanosis, clubbing, or pedal edema. NEUROLOGICAL: Gross neurological examination did not reveal any focal deficits. SKIN: No rashes. no petechiae. - Labs CBC & Chem 7: 05/17/21 04:47 05/17/21 04:47 Labs: Abnormal Lab Results - Last 24 Hours (Table) 05/17/21 05/17/21 Range/Units 04:47 04:47 WBC 21.1 H (3.8-10.6) k/uL Neutrophils # 17.3 H (1.3-7.7) k/uL Monocytes # 1.9 H (0-1.0) k/uL Sodium 134 L (137-145) mmol/L Calcium 8.3 L (8.4-10.2) mg/dL Total Bilirubin 1.4 H (0.2-1.3) mg/dL Total Protein 5.7 L (6.3-8.2) g/dL Albumin 2.6 L (3.5-5.0) g/dL Microbiology - Last 24 Hours (Table) 05/15/21 05:37 Blood Culture - Preliminary Blood No Growth after 48 hours 05/13/21 17:23 Blood Culture - Preliminary Blood No Growth after 72 hours 05/13/21 11:15 CSF Gram Stain - Preliminary Cerebral Spinal Fluid CSF Culture - Preliminary 05/12/21 19:55 Blood Culture Gram Stain - Final Blood Blood Culture - Final Streptococcus pneumoniae Assessment and Plan Assessment: Acute bacterial meningitis Streptococcus bacteremia Sepsis with fever and leukocytosis. Gram-positive cocci bacteremia Bilateral pulmonary infiltrate, suspected IV fluid. Pulmonary team still recommend continue IV fluids and monitored closely in the ICU Acute kidney injury, resolved Hematuria Elevated lactic acid Bilateral lower extremity ischemia, looks chronic with right lower extremity more than 70% and left lower extremity about 50% Plan: This is a pleasant 70 years old male who presents with altered mental status, sepsis. Bilateral lower extremity extremely a, Alma Rosa Continue with ceftriaxone, IV vancomycin.infectious disease consult on the case MRI of the lumbar spine is pending. Neurology consult Continue with gentle hydration and monitor respiratory status. Pulmonary/critical care consult Continue with aspirin and Plavix Vascular surgery consult called by emergency room team, we will follow up. we will discuss with neurology team about aspirin and Plavix Labs and medication were reviewed.. Continue same treatment. Continue with symptomatic treatment. Resume home medication. Monitor lytes and vitals. DVT and GI prophylaxis. Further recommendations depends on the clinical course of the patient DVT prophyl: SCD GI Prophylaxis: Pepcid Prognosis is guarded
--- NOTE | 2021-05-17 14:44 | MR ---
EXAMINATION TYPE: MR lumbar spine wo/w con DATE OF EXAM: 05/17/2021 COMPARISON: None available HISTORY: Acute LBP, rule out abscess, meningitis. TECHNIQUE: Multiplanar, multisequence images of the lumbar spine were acquired without and with 7.5 mL intraveno us Gadavist gadolinium contrast. FINDINGS: Lumbar vertebral body heights are maintained. Slight retrolisthesis of L5 on S1. Modic type II reacti ve endplate changes at L4-5. Small hemangioma of the L3 vertebral body. No suspicious focal bone cayetano ow replacing lesion. Moderate multilevel degenerative disc changes with osteophyte formation, disc desiccation, and disc h eight loss most pronounced at L5-S1. Eccentric to the right at L5-S1, the endplates appear T2 hyperin tense and T1 hypointense, and there is a small amount of T2 hyperintensity within the disc space post eriorly, which is favored favored to represent degenerative changes with Modic type I reactive endpla te changes. There is no endplate irregularity or erosive changes. No enhancement within the disc spac e. No associated paravertebral soft tissue edema or enhancement. Mild to moderate multilevel facet arthropathy throughout the lumbar spine. Conus medullaris terminate s at the level of L1-2 and appears unremarkable. Cauda equina nerve roots are normal caliber and conf iguration. Mild fatty atrophy of the lower paraspinal musculature; otherwise, the paraspinal soft tissues appear unremarkable. Small T2 hyperintense cyst of the left kidney measuring 1.7 cm. No abnormal pathologic enhancement within the spinal canal. T12-L1: No disc abnormality. Mild facet arthropathy and ligamentum flavum hypertrophy. No spinal yanet l stenosis or neural foraminal narrowing. L1-2: No disc abnormality. Mild facet arthropathy and ligamentum flavum hypertrophy. No spinal canal stenosis or neural foraminal narrowing. L2-3: Broad-based disc bulge. Moderate facet arthropathy and ligamentum flavum hypertrophy. Prominent epidural fat posteriorly. Mild spinal canal stenosis. No neural foraminal narrowing. L3-4: Broad-based disc bulge. Moderate facet arthropathy and ligamentum flavum hypertrophy. Prominent epidural fat posteriorly. Mild spinal canal stenosis. No neural foraminal narrowing. L4-5: Broad-based disc bulge with T2 hyperintense annular fissure centrally. Moderate facet arthropat hy and ligamentum flavum hypertrophy. Mildly prominent epidural fat posteriorly. Mild spinal canal st enosis. No right neural foraminal narrowing. Mild left neural foraminal narrowing. L5-S1: Slight retrolisthesis. Posterior disc osteophyte complex extending to the bilateral foramina, right greater than left. Mild facet arthropathy and ligamentum flavum hypertrophy. Prominent epidural fat anterolaterally, right greater than left. Moderate spinal canal stenosis. Moderate right and mil [id number] left neural foraminal narrowing. IMPRESSION: 1. No abnormal pathologic enhancement. 2. Multilevel degenerative changes, as described above, most pronounced at L5-S1 causing moderate spi nal canal stenosis, moderate right neural foraminal narrowing, and mild to moderate left neural damien inal narrowing. 3. At L5-S1, there is small amount of T2 hyperintensity within the disc space and the endplates demon strate T1 hypointensity, T2 hyperintensity without enhancement of the disc spaces or paravertebral so ft tissues. Findings are favored to represent degenerative changes. Early discitis/osteomyelitis is f elt to be less likely.
--- NOTE | 2021-05-17 22:02 | PN ---
PROGRESS NOTE DATE OF SERVICE: 05/17/2021 REASON FOR FOLLOWUP: Strep pneumo meningitis and bacteremia. INTERVAL HISTORY: The patient is afebrile. The patient is breathing comfortably. The patient's headache no chest pain, shortness of breath or cough. No abdominal pain or diarrhea. PHYSICAL EXAMINATION: Blood pressure is 112/97 with a pulse of 92, temperature 99.4. He is 94% on room air. General description is an elderly male up in the bed in no distress. RESPIRATORY SYSTEM: Unlabored breathing. Decreased breath sounds at the bases. No wheeze. HEART: S1, S2. Regular rate and rhythm. ABDOMEN: Soft. No tenderness. EXTREMITIES: No edema of the feet. LABS: Repeat blood cultures have been negative. MRI of the lumbosacral spine suggestive of degenerative changes. DIAGNOSTIC IMPRESSION AND PLAN: Patient with Streptococcus pneumoniae bacteremia with meningitis. Patient responding to Rocephin 2 grams daily; to continue to continue while monitoring his clinical course closely. Continue supportive care. MMODL / IJN: [id number] /
[2021-05-18] MEDS: HYDROcodone/APAP 5-325MG 1 EACH TAB PO PRN ×3 (01:31→21:24)
[2021-05-18 07:34] LABS: African American GFR (CKD) >90 (>60 ml/min/1.73 sqM); Non-African American GFR(CKD) >90 (>60 ml/min/1.73 sqM)
[2021-05-18] MEDS: FAMOTIDINE 20 MG/2 ML VIAL IV SCH ×2 (08:18→21:24)
[2021-05-18] MEDS: CLOPIDOGREL 75 MG TAB PO SCH (08:18)
[2021-05-18] MEDS: ASPIRIN 81 MG PO SCH (08:18)
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
--- NOTE | 2021-05-18 16:06 | P.PN ---
Subjective This is a pleasant 70 years old male with past medical history of Hyperlipidemia, Hypertension, tinnitus. Patient states that he fell last night when he was standing up trying to get to the bathroom. He still feels some nonspecific dizziness but denies loss of consciousness. He knows he is in the hospital but he could not tell which hospital, he thought it is 1999 2019 and time the president is Oswaldo. However during conversation patient goes back to sleep, he is easily arousable to verbal stimuli before he goes back to sleep shortly thereafter. He denies weakness or numbness in all 4 extremities and he moves them symmetrically. Patient complains from low back pain. And some mild neck pain but no neck stiffness. Patient is poor historian He denies chest pain or dyspnea. No abdominal pain. No diarrhea or vomiting. No urinary dysuria or increased frequency. Patient has fever on admission of 102.4 and blood pressure is borderline 105/58 This creatinine is 1.5, WBC 24.5, sodium 131, lactic acid 2.3 05/13/2021 Patient is still confused today. He denies any specific complaint however his significantly drowsy. Also his tachypnea. He received several doses of normal saline fluid during the night almost 3 L total his lactic acid still elevated at 6. A team was called because of high lactic acid. An repeat chest x-ray showing bilateral infiltrate, pH is 7.4, low pCO2 of 27 and low pO2 of 70. Most of the fluid management and abnormal chest x-ray pulmonary team were consulted who recommended to transfer the patient to the ICU. No fever today. His that HE still elevated at 26. Creatinine is back to normal. Sodium improved 134. Carotid duplex is negative. Blood culture is positive for gram-positive cocci. MRI and MRA of the brain is ordered by neurology team and is pending Lumbar puncture showing elevated pressure. Result is pending. Also patient has hematuria, renal ultrasound is ordered Patient is currently covered with ceftriaxone 2 g twice daily per ID team who also started him on IV vancomycin. Also patient is on acyclovir. IV fluid lower to 75 mL/h but continued per recommendation by pulmonary team. Monitor breathing function Keep holding home medication 05/14/2021 Patient remains in the ICU, breathing improved and lactic acid back to normal and he Currently on normal saline at 75 mL/h. Also his blood pressure is normal and acceptable with SBP 08/14/2029. Mentation has been stable with only small improvement, he still oriented to place only, he knows he is in the hospital since he came in but today he can tell he is also in [facility] however he still confused about time and persons. He has minimal neck pain, low back pain since admission. No severe headache today. No weakness or numbness in extremities. Vitals stable, afebrile. Leukocytosis improving down to 21, but also patient got dexamethasone dose yesterday. Creatinine is back to normal at 0.9 Sodium 132. Lumbar puncture results are consistent with bacterial meningitis with increased nucleated delicacy and low glucose EEG showing no epileptiform activity Remains on ceftriaxone 2 g twice daily and IV vancomycin per ID team. Streptococcus bacteremia is detected. Echocardiogram is ordered and is pending MRI of the brain is pending. Patient kept nothing by mouth and may need surgical evaluation later on. Renal ultrasound show no abnormalities for his mild hematuria, we will repeat urine analysis We will discuss with neurology if it's okay to resume aspirin and Plavix for his recent cardiac stent. Discussed with staff. Currently patient with no chest pain or dyspnea 05/15/2021 Patient is in the ICU, his general medical floor overflow. Last night he was agitated, he developed low-grade temperature apparent 100. And his leukocytosis likely went up to 21K. Haldol when necessary has been added this morning is stable, calm sitting in chair, little groggy and lethargic from Haldol last night. He remains on ceftriaxone and IV vancomycin as per ID team recommendation. Rest of Vitas looks stable. Labs reviewed. Besides antibiotics and also he is on normal saline at 75 mL/h. Resumed his aspirin and Plavix. MRI of the brain has consulted by neurology service. MRI of the lumbar spine is still pending. Rule out epidural abscess per neurology service. MARISABEL is negative for vegetations 05/18/2021 Patient seen in the general medical floor today is fully awake and oriented to time place and person. His mentation is significantly improved and almost back to normal. His vitals are stable, he has no back pain, no headache. No weakness or numbness. Creatinine normal at 0.8. Repeat blood culture is negative. MRI of the lumbar spine showing no abnormal pathological enhancement. He has multiple degenerative changes, CT report for more details. He is kept on ceftriaxone 2 g daily and gentle hydration which is responding to this treatment and to be continued per ID team. Neurology service on the case as well. Objective - Vital Signs Vital signs: Vital Signs Temp 98.7 F 05/18/21 14:00 Pulse 86 05/18/21 14:00 Resp 16 05/18/21 14:00 BP 160/56 05/18/21 14:00 Pulse Ox 94 L 05/18/21 14:00 Intake & Output 05/17/21 05/18/21 05/18/21 18:59 06:59 18:59 Intake Total 1720 Output Total 500 1510 Balance -500 210 Intake: IV 1000 Sodium Chloride 0.9% 1, 1000 000 ml @ 75 mls/hr IV . [id number] [facility] Rx#:[id number] Oral 720 Output: Urine 500 1510 Other: Voiding Method Incontinent Incontinent # Voids 2 # Bowel Movements 0 - Exam GENERAL: The patient is alert awake and oriented 3, no respiratory or other distress. drowsy HEENT: Pupils are round and equally reacting to light. EOMI. No scleral icterus. No conjunctival pallor. Normocephalic, atraumatic. No pharyngeal erythema. No thyromegaly. CARDIOVASCULAR: S1 and S2 present. No murmurs, rubs, or gallops. PULMONARY: Chest is clear to auscultation, no wheezing. ABDOMEN: Soft, nontender, nondistended, normoactive bowel sounds. No palpable organomegaly. MUSCULOSKELETAL: No joint swelling or deformity. EXTREMITIES: No cyanosis, clubbing, or pedal edema. NEUROLOGICAL: Gross neurological examination did not reveal any focal deficits. SKIN: No rashes. no petechiae. - Labs CBC & Chem 7: 05/17/21 04:47 05/18/21 06:55 Labs: Microbiology - Last 24 Hours (Table) 05/15/21 05:37 Blood Culture - Preliminary Blood No Growth after 72 hours 05/13/21 17:23 Blood Culture - Preliminary Blood No Growth after 96 hours 05/13/21 11:15 CSF Gram Stain - Final Cerebral Spinal Fluid CSF Culture - Final Assessment and Plan Assessment: Acute bacterial meningitis Streptococcus bacteremia Sepsis with fever and leukocytosis. Gram-positive cocci bacteremia Bilateral pulmonary infiltrate, suspected IV fluid. Pulmonary team still recommend continue IV fluids and monitored closely in the ICU Acute kidney injury, resolved Hematuria Elevated lactic acid Bilateral lower extremity ischemia, looks chronic with right lower extremity more than 70% and left lower extremity about 50% Plan: This is a pleasant 70 years old male who presents with altered mental status, sepsis. Bilateral lower extremity extremely a, Alma Rosa Continue with ceftriaxone, IV vancomycin was discontinued.infectious disease consult on the case MRI of the lumbar spine report is reviewed. Neurology consult Continue with gentle hydration and monitor respiratory status. Pulmonary/critical care consult Continue with aspirin and Plavix Labs and medication were reviewed.. Continue same treatment. Continue with symptomatic treatment. Resume home medication. Monitor lytes and vitals. DVT and GI prophylaxis. Further recommendations depends on the clinical course of the patient DVT prophyl: SCD GI Prophylaxis: Pepcid Prognosis is guarded
--- NOTE | 2021-05-18 22:05 | PN ---
PROGRESS NOTE DATE OF SERVICE: 05/18/2021 REASON FOR FOLLOWUP: Strep pneumoniae bacteremia and meningitis. INTERVAL HISTORY: The patient is afebrile. The patient breathing comfortably. No chest pain, shortness of breath or cough. No vomiting. No abdominal pain or diarrhea. PHYSICAL EXAMINATION: Blood pressure 134/79 with a pulse of 75, temperature of 99.3. He is 96% on room air. General description is an elderly male lying in bed in no distress. RESPIRATORY SYSTEM: Unlabored breathing. Clear to auscultation anteriorly. HEART: S1, S2. Regular rate and rhythm. ABDOMEN: Soft. No tenderness. EXTREMITIES: of feet. LABS: No new labs have been obtained today. Blood culture repeat has been negative. DIAGNOSTIC IMPRESSION AND PLAN: Patient with Streptococcus pneumoniae bacteremia secondary to meningitis. Repeat blood culture has been negative. Patient has shown clinical response to Rocephin 2 grams total of 2 weeks of therapy and close outpatient followup. MMODL / IJN: [id number] /
[2021-05-19 08:22] VITALS: BMI 24.6
[2021-05-19] MEDS: ASPIRIN 81 MG PO SCH (08:49)
[2021-05-19] MEDS: FAMOTIDINE 20 MG/2 ML VIAL IV SCH ×2 (08:49→21:56)
[2021-05-19] MEDS: CLOPIDOGREL 75 MG TAB PO SCH (08:49)
[2021-05-19] MEDS: HYDROcodone/APAP 5-325MG 1 EACH TAB PO PRN ×2 (09:00→21:56)
[2021-05-19 09:30] LABS: Basophils # (A) 0.07 X 10*3/uL (0.00-0.10); Basophils % (A) 0.6 %; Eosinophils # (A) 0.23 X 10*3/uL (0.04-0.35); HCT 40.4 % (39.6-50.0); HGB 13.8 g/dL (13.0-17.0); Lymphocytes # (A) 1.65 X 10*3/uL (0.90-5.00); Lymphocytes % (A) 14.3 %; MCH 28.8 pg (27.0-32.0); MCHC 34.2 g/dL (32.0-37.0); MCV 84.2 fL (80.0-97.0); Mean Platelet Volume 10.8 fL (9.5-12.2); Monocytes # (A) 1.34 X 10*3/uL (0.20-1.00); Monocytes % (A) 11.6 %; Neutrophils # (A) 7.86 X 10*3/uL (1.80-7.70); Neutrophils % (A) 68.1 %; Platelet Count 426 X 10*3/uL (140-440); RDW 15.1 % (11.5-14.5); WBC 11.54 X 10*3/uL (4.50-10.00)
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
[2021-05-19 15:24] LABS: African American GFR (CKD) 97.8 (60.0-200.0); Anion Gap 12.1 mmol/L (4.00-12.00); BUN/Creat Ratio 16.49 Ratio (12.00-20.00); Blood Urea Nitrogen 15.2 mg/dL (9.0-27.0); Calcium 8.2 mg/dL (8.7-10.3); Carbon Dioxide 21.6 mmol/L (21.6-31.8); Non-African American GFR(CKD) 84.3 (60.0-200.0); Potassium 4.2 mmol/L (3.5-5.5)
--- NOTE | 2021-05-19 15:26 | PN ---
PROGRESS NOTE DATE OF SERVICE: 05/19/2021 REASON FOR FOLLOWUP: Pneumococcal bacteremia and meningitis. INTERVAL HISTORY: The patient is afebrile. The patient is breathing comfortably. The patient denies having any chest pain or shortness of breath or cough. No nausea, vomiting. No abdominal pain. Headache has improved. Still complaining of some pain in the back; no worsening, though. PHYSICAL EXAMINATION: Blood pressure 147/83 with a pulse of 59, temperature 98.3. He is 97% on room air. General description is an elderly male up in the bed in no distress. RESPIRATORY SYSTEM: Unlabored breathing. Clear to auscultation anteriorly. HEART: S1, S2. Regular rate and rhythm. ABDOMEN: Soft. No tenderness. EXTREMITIES: No edema of the feet. LABS: Blood culture repeat has been negative. White count down to 11.54. DIAGNOSTIC IMPRESSION AND PLAN: Patient with Streptococcus pneumoniae bacteremia with evidence of meningitis; has responded to the IV Rocephin; received about a week. Will need another week of IV Rocephin to finish a 2-week course of therapy. Continue with supportive care. MMODL / IJN: [id number] /
[2021-05-20 08:39] VITALS: RESP 18
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
[2021-05-20] MEDS: FAMOTIDINE 20 MG/2 ML VIAL IV SCH (11:28)
[2021-05-20] MEDS: CLOPIDOGREL 75 MG TAB PO SCH (11:28)
[2021-05-20] MEDS: ASPIRIN 81 MG PO SCH (11:28)
[2021-05-20 14:54] VITALS: BP 126/73; PULSE 72; TEMP 98.8
--- NOTE | 2021-05-20 15:12 | P.PN ---
Subjective Progress Note Date: 05/20/21 I am seeing the patient for the first time for neurological management. Please refer to Dr. Morrow's note for further details. Patient feels he doing much better compared to his initial presentation. He den ies of headache, nausea, vomiting, neck pain and has minimal back pain. He feels his back pain is improving and feels he is having more strength in his lower extremities. He said he history of peripheral neuropathy. Objective - Vital Signs Vital signs: Vital Signs Temp 98.4 F 05/20/21 08:38 Pulse 66 05/20/21 08:38 Resp 18 05/20/21 08:38 BP 161/86 05/20/21 08:38 Pulse Ox 99 05/20/21 08:38 Intake & Output 05/19/21 05/20/21 05/20/21 18:59 06:59 18:59 Intake Total 720 Output Total 1100 Balance -380 Weight 80.1 kg Intake: Oral 720 Output: Urine 1100 Other: Voiding Method Urinal Urinal Urinal # Voids 2 2 # Bowel Movements 1 1 - Exam GENERAL: The patient is lying in bed and is not in acute distress. INTEGUMENTARY: Has erythematous skin over the right lower extremity from knee down and is warm to touch compared to left. Also continue to have light purplish discoloartion of his nails. NEUROLOGICAL: Higher mental function: The patient is awake, alert, oriented to self and time. He stated he was at the hospital but could not tell me which. He correctly name the current state were are in. He was able to correctly name objects (watch, pen and glasses). Patient is following simple commands. No aphasia and no neglect. Cranial nerves: The pupils are round, equal and reactive to light. Visual castro are full to confrontation throughout. Extraocular movement is intact no nystagmus is noted. Facial sensation is normal to touch throughout. The facial strength is normal throughout. Tongue is midline and moved [id number] without any difficulty. No dysarthria is noted. Shoulder shrug is normal bilaterally. Motor: Gait is deferred. The strength is 5 over 5 throughout uppers. While lower is hip flexion is 5- bilaterally, ankle dorsiflexion is 2 bilaterally while plantarflexion is 3. Normal tone. Cerebellum: Normal finger to nose bilaterally. Sensation: Sensation is normal to touch throughout. Reflexes (right/left): 1+ throughout uppers while lowers are 0. Plantars are mute bilaterally. WORK-UP: Patient's lumbar puncture showed CSF is cloudy, opening pressure was 47 cm. CSF xanthochromic, with white cells 3350, although patient 97% R polynuclear and 3% mononuclear cells, RBC 175. Total proteins are > 600, glucose <20. CSF has growth Gram-positive cocci. Viral cultures negative. EEG was reported as abnormal due to background slowing of mild to moderate degree. This is suggestive of generalized cerebral dysfunction as can be seen with toxic metabolic encephalopathy or due to diffuse structural brain abnormality. No epileptiform activity was seen. Carotid Doppler shows no carotid stenosis. Antegrade flow in vertebral arteries. CT brain is reported as no acute intracranial abnormality. MRI lumbar spine is reported as no abnormal pathological enhancement. Multilevel degenerative changes as described above, most pronounced at L5-S1 causing moderate spinal canal stenosis, moderate right neuroforaminal narrowing and mild to moderate left neuroforaminal narrowing. At L5-S1 there is a small amount of T2 hyperintense within the disc space and the endplate demonstrate T1 hyperintensity, T2 hyperintense without enhancement of the disc space or paravertebral soft tissues at. Findings are favored to represent degenerative changes. Early discitis/osteomyelitis is felt to be less likely. Urine toxicology screen was positive for amphetamines, methamphetamine and marijuana. Crump virus PCR is nondetected. - Labs CBC & Chem 7: 05/19/21 06:43 05/19/21 06:45 Labs: Abnormal Lab Results - Last 24 Hours (Table) 05/19/21 Range/Units 06:45 Anion Gap 12.10 H (4.00-12.00) mmol/L Calcium 8.2 L (8.7-10.3) mg/dL Microbiology - Last 24 Hours (Table) 05/15/21 05:37 Blood Culture - Preliminary Blood No Growth after 120 hours 05/13/21 17:23 Blood Culture - Final Blood No Growth after 144 hours Assessment and Plan Assessment: * Bacterial meningitis due to Streptococcus pneumonia. CSF cultures positive. * Lumbosacral spondylosis. Acute low back pain, much improved. Patient has weakness in lower extremities (mostly ankles) * Erythema and warm to touch over the right lower extremity: Rule out cellulitis * Bacteremia with streptococcus pneumonia. * Hyponatremia--improved. * Mild renal insufficiency--resolved * Peripheral arterial disease * Hypertension * Hyperlipidemia * Coronary artery disease Plan: * I spoke with the infection disease attending during the patient's lower back pain and general feel the patient clinically has osteomyelitis. * I consulted the orthopedic team on 05/19/2021 to look into lumbosacral spondylosis and ?rule out osteomyelitis but the primary team did not feel it was warranted at this time. Therefore recommend the patient to follow-up with the orthopedic team as an outpatient. * Regarding the erythema and warmth of the right lower extremity at rule out cellulitis, I notified that the primary team about my concern. * Recommend EMG with NCS of lower extremities as outpatient. * Patient's blood culture positive for Streptococcus pneumoniae. Continue ceftriaxone 2 g every 12 hours, meningeal dose and will defer antibiotic management to the I.D. team. * Physical therapy and occupation therapy are consulted. * Upon discharge recommend the patient to follow-up with a neurologist within 1- 2 weeks. The plan is discussed with the patient's nurse and primary team. Alberto Gordon M.D. Neuro-hospitalist Time with Patient: Less than 30
== END 2021-05-20 16:00 | DRG 871 ==
LOC: EC 08:58 → 4SSUR 15:57 → 2SICU 05-13 09:44 → 4SSUR 05-17 16:34
PROVIDERS: ADMIT Internal Medicine; ATTEND Internal Medicine
PROC: B24BZZ4 Ultrasonography of Heart with Aorta, Transesophageal (ICD-10-PCS; 2021-05-16)
PROC: 05HA33Z Insertion of Infusion Device into Left Brachial Vein, Percutaneous Approach (ICD-10-PCS; principal; 2021-05-19 07:30)
DX: A40.9 Streptococcal sepsis, unspecified (principal); J15.4 Pneumonia due to other streptococci; J96.01 Acute respiratory failure with hypoxia; G93.41 Metabolic encephalopathy; G00.2 Streptococcal meningitis; R65.21 Severe sepsis with septic shock; E87.2 Acidosis; E87.1 Hypo-osmolality and hyponatremia; N17.9 Acute kidney failure, unspecified; M79.672 Pain in left foot; M79.671 Pain in right foot; Z20.822 Contact with and (suspected) exposure to COVID-19; E78.5 Hyperlipidemia, unspecified; E86.0 Dehydration; F17.200 Nicotine dependence, unspecified, uncomplicated; F43.10 Post-traumatic stress disorder, unspecified; F32.9 Major depressive disorder, single episode, unspecified; G62.9 Polyneuropathy, unspecified; I25.10 Atherosclerotic heart disease of native coronary artery without angina pectoris; I25.2 Old myocardial infarction; R65.20 Severe sepsis without septic shock; I73.9 Peripheral vascular disease, unspecified; I10 Essential (primary) hypertension; F15.10 Other stimulant abuse, uncomplicated; J32.0 Chronic maxillary sinusitis; M47.817 Spondylosis without myelopathy or radiculopathy, lumbosacral region; B95.5 Unspecified streptococcus as the cause of diseases classified elsewhere; Z86.16 Personal history of COVID-19; Z79.02 Long term (current) use of antithrombotics/antiplatelets; Z79.82 Long term (current) use of aspirin; Z79.899 Other long term (current) drug therapy; Z90.81 Acquired absence of spleen; Z95.5 Presence of coronary angioplasty implant and graft
CPT/HCPCS: 36410; 36415; 36600; 51798; 70450; 71045; 71046; 72158; 76770; 76937; 80048; 80053; 80202; 80306; 81001; 82565; 82805; 82945; 83605; 83735; 84145; 84157; 84484; 85025; 85610; 85652; 85730; 86140; 87040; 87070; 87077; 87186; 87205; 87252; 87496; 87498; 87529; 87635; 87798; 89050; 93306; 93312; 93325; 93880; 93922; 93923; 94760; 95819; 96360; 99284

== ENCOUNTER 2021-07-07 11:12 | Observation (INO) | payer OTHER, MEDICARE ==
[2021-07-07] MEDS ORDERED: cefTRIAXone IN SWFI 1,000 MG/10 ML SYRINGE IVP STA (11:56)
[2021-07-07] MEDS ORDERED: MECLIZINE 25 MG TAB PO STA (11:57)
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
[2021-07-07 12:36] LABS: Basophils # (A) 0.1 k/uL (0-0.2); Basophils % (A) 1 %; Eosinophils # (A) 0.4 k/uL (0-0.7); Eosinophils % (A) 6 %; HCT 46.9 % (39.0-53.0); HGB 15.6 gm/dL (13.0-17.5); Lymphocytes # (A) 1.7 k/uL (1.0-4.8); Lymphocytes % (A) 23 %; MCHC 33.2 g/dL (31.0-37.0); MCV 87.4 fL (80.0-100.0); Mean Platelet Volume 7.4; Monocytes # (A) 0.9 k/uL (0-1.0); Monocytes % (A) 12 %; Neutrophils # (A) 4.2 k/uL (1.3-7.7); Neutrophils % (A) 55 %; Platelet Count 425 k/uL (150-450); Poikilocytosis Slight; RBC 5.37 m/uL (4.30-5.90); RDW 15.7 % (11.5-15.5); WBC 7.7 k/uL (3.8-10.6)
[2021-07-07 12:46] LABS: INR 0.9 (<1.2); Partial Thromboplastin Time 23.4 sec (22.0-30.0)
--- NOTE | 2021-07-07 12:48 | CT ---
EXAMINATION TYPE: CT brain wo con DATE OF EXAM: 07/07/2021 COMPARISON: 05/12/2021 HISTORY: 71-year-old male Fall due to dizziness TECHNIQUE: Examination was done in axial plane without intravenous contrast. Coronal and sagittal r econstructions performed. CT DLP: 1099.4 mGycm Automated exposure control for dose reduction was used. FINDINGS: There is no evidence of acute intracranial hemorrhage, acute ischemic changes, mass, mass-effect, or extra-axial fluid collection. There is no effacement of cerebral sulci or basal subarachnoid cister ns. There is no hydrocephalus. There is no midline shift. Hughes-white matter distinction is preserv ed. There are mild patchy white matter hypodensities in the cerebral hemispheres. Relatively high density of the blood pool similar to prior exam Left nasal septal deviation. Otherwise, paranasal sinuses and mastoid air cells well pneumatized. Orb its and globes are intact. IMPRESSION: Mild burden of chronic small vessel ischemic disease. No acute intracranial abnormality seen. Slight generalized high density of the blood pool, unchanged from the appearance on 05/12/2021. Query dehydr ation.
[2021-07-07 12:50] LABS: Albumin 3.9 g/dL (3.5-5.0); Calcium 9.6 mg/dL (8.4-10.2); Magnesium 2.1 mg/dL (1.6-2.3); Potassium 4.4 mmol/L (3.5-5.1); Total Bilirubin 0.6 mg/dL (0.2-1.3); Total Protein 7.9 g/dL (6.3-8.2)
--- NOTE | 2021-07-07 12:51 | XR ---
EXAMINATION TYPE: XR chest 2V DATE OF EXAM: 07/07/2021 COMPARISON: Chest x-ray 05/13/2021 HISTORY: Chest pain TECHNIQUE: Frontal and lateral views of the chest are obtained. FINDINGS: There is no focal air space opacity, pleural effusion, or pneumothorax seen. The cardiac silhouette size is within normal limits. There are overlying leads. There may be spinal curvature, th ere is multilevel spondylosis. Left hemidiaphragm mildly elevated. The osseous structures are intact . IMPRESSION: There is improved aeration as compared to prior exam.
[2021-07-07] MEDS ORDERED: SODIUM CHLORIDE 0.9% 1,000 ML IV ONE (14:40)
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
[2021-07-07] MEDS ORDERED: ALBUTEROL NEBULIZED 2.5 MG/3 ML INHALATION PRN (19:32)
[2021-07-07] MEDS ORDERED: ACETAMINOPHEN TAB 325 MG TAB PO PRN (19:32)
[2021-07-07] MEDS ORDERED: MAGNESIUM HYDROXIDE 2,400 MG/10 ML CUP PO PRN (19:32)
[2021-07-07] MEDS ORDERED: LORazepam 2 MG/ML INJ IV PRN (19:35)
[2021-07-07] MEDS ORDERED: ATORVASTATIN 20 MG TAB PO SCH (21:00)
[2021-07-07] MEDS ORDERED: VENLAFAXINE HCL ER 75 MG CAP PO SCH (21:00)
[2021-07-07] MEDS ORDERED: MELATONIN 3 MG TABLET PO SCH (21:00)
[2021-07-08] MEDS ORDERED: ASPIRIN 325 MG TAB PO SCH (09:00)
[2021-07-08] MEDS ORDERED: CLOPIDOGREL 75 MG TAB PO SCH (09:00)
[2021-07-08] MEDS ORDERED: NON FORMULARY DRUG (Omega-3 Fatty Acids/Fish Oil [Fish Oil 1,000 Mg Softgel] 1 EACH Capsul PO SCH (09:00)
[2021-07-08] MEDS ORDERED: amLODIPine 10 MG TAB PO SCH (09:00)
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
[2021-07-08 14:48] VITALS: BP 144/79; PULSE 72; RESP 20; TEMP 98.3
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
== END 2021-07-08 15:25 | disposition home health service (06) ==
LOC: EC 11:12 → 6NMEDSUR 14:49
PROVIDERS: ADMIT Hospitalist; ATTEND Hospitalist
DX: R42 Dizziness and giddiness (principal); E87.1 Hypo-osmolality and hyponatremia; R51.9 Headache, unspecified; R26.81 Unsteadiness on feet; I10 Essential (primary) hypertension; E78.5 Hyperlipidemia, unspecified; G62.9 Polyneuropathy, unspecified; I25.10 Atherosclerotic heart disease of native coronary artery without angina pectoris; I73.9 Peripheral vascular disease, unspecified; M21.379 Foot drop, unspecified foot; I25.2 Old myocardial infarction; L98.9 Disorder of the skin and subcutaneous tissue, unspecified; L65.9 Nonscarring hair loss, unspecified; H93.19 Tinnitus, unspecified ear; J34.2 Deviated nasal septum; I67.82 Cerebral ischemia; M48.07 Spinal stenosis, lumbosacral region; M47.819 Spondylosis without myelopathy or radiculopathy, site unspecified; G89.29 Other chronic pain; M54.9 Dorsalgia, unspecified; F43.10 Post-traumatic stress disorder, unspecified; F32.A Depression, unspecified; F17.210 Nicotine dependence, cigarettes, uncomplicated; Z20.822 Contact with and (suspected) exposure to COVID-19; Z57.1 Occupational exposure to radiation; Z79.02 Long term (current) use of antithrombotics/antiplatelets; Z79.82 Long term (current) use of aspirin; Z79.899 Other long term (current) drug therapy; Z90.81 Acquired absence of spleen; Z86.61 Personal history of infections of the central nervous system; Z95.5 Presence of coronary angioplasty implant and graft; Z87.828 Personal history of other (healed) physical injury and trauma; Z98.890 Other specified postprocedural states; Z80.9 Family history of malignant neoplasm, unspecified
CPT/HCPCS: 96361; 96374; 99285; 36415; 93005; 80053; 83735; 84484; 85025; 85610; 85730; 87635; 71046; 70450; G0378 ×2; J0696

== ENCOUNTER 2022-01-22 01:38 | Observation (INO) | payer OTHER, MEDICARE ==
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
--- NOTE | 2022-01-22 02:11 | XR ---
EXAM: XR Chest, 1 View CLINICAL HISTORY: ITS.REASON XR Reason: chest pain TECHNIQUE: Frontal view of the chest. COMPARISON: CXR July 07, 2021. FINDINGS: Lungs: Unremarkable. No consolidation. Elevated left hemidiaphragm. Pleural space: Unremarkable. No pneumothorax. Heart: Mild cardiomegaly. Mediastinum: Unremarkable. Bones/joints: Unremarkable. IMPRESSION: No infiltrate.
[2022-01-22] MEDS ORDERED: MORPHINE SULFATE 4 MG/ML SYRINGE IVP STA (02:19)
[2022-01-22] MEDS ORDERED: hydrALAZINE HCL 20 MG/ML 1 ML VIAL IVP STA (02:19)
[2022-01-22 02:48] LABS: Basophils # (A) 0.1 k/uL (0-0.2); Basophils % (A) 1 %; Eosinophils % (A) 0 %; HCT 48.1 % (39.0-53.0); HGB 16.3 gm/dL (13.0-17.5); Lymphocytes # (A) 1.9 k/uL (1.0-4.8); Lymphocytes % (A) 22 %; MCH 30.1 pg (25.0-35.0); MCHC 33.8 g/dL (31.0-37.0); MCV 88.9 fL (80.0-100.0); Monocytes # (A) 0.6 k/uL (0-1.0); Monocytes % (A) 7 %; Neutrophils # (A) 5.8 k/uL (1.3-7.7); Neutrophils % (A) 67 %; Platelet Count 403 k/uL (150-450); RBC 5.41 m/uL (4.30-5.90); RDW 15.1 % (11.5-15.5); WBC 8.7 k/uL (3.8-10.6)
[2022-01-22 02:59] LABS: Albumin 4.3 g/dL (3.5-5.0); Calcium 9.5 mg/dL (8.4-10.2); Magnesium 2.2 mg/dL (1.6-2.3); Potassium 4.3 mmol/L (3.5-5.1); Total Bilirubin 0.5 mg/dL (0.2-1.3); Total Protein 7.5 g/dL (6.3-8.2)
[2022-01-22 03:16] LABS: INR 0.9 (<1.2); Partial Thromboplastin Time 24.1 sec (22.0-30.0); Prothrombin Time 10.1 sec (9.0-12.0)
[2022-01-22] MEDS ORDERED: MORPHINE SULFATE 4 MG/ML SYRINGE IV PRN (03:29)
[2022-01-22] MEDS ORDERED: NALOXONE 0.4 MG/ML 1 ML VIAL IV PRN (03:29)
[2022-01-22] MEDS ORDERED: ONDANSETRON 4 MG/2 ML VIAL IVP PRN (03:29)
[2022-01-22] MEDS: SODIUM CHLORIDE 0.9% 1,000 ML IV SCH ×3 (03:55→16:58)
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
[2022-01-22] MEDS ORDERED: AMINOPHYLLINE 500 MG/20 ML VIAL IV PRN (10:38)
[2022-01-22] MEDS ORDERED: REGADENOSON 0.4 MG/5 ML SYRINGE IV PRN (10:38)
[2022-01-22] MEDS ORDERED: CAFFEINE CITRATE 60 MG/3 ML VIAL IV PRN (10:38)
--- NOTE | 2022-01-22 12:13 | CA ---
Transthoracic Echo Report Name: Damaso Perkins Age: 71 Gender: M : 1950 Exam Date: 01/22/2022 10:03 Exam Location: [facility] Ht (in): 61 Wt (lb): 180 Ordering Physician: Kings Woody MD ([id number]) Attending/Referring Phys: Annalise SUAZO Counter Supply Worker Selina Haro RDCS Procedure CPT: Indications: Chest Pain Cardiac Hx: Technical Quality: Fair Contrast 1: Total Dose (mL): Contrast 2: Total Dose (mL): MEASUREMENTS (Male / Female) Normal Values 2D ECHO LV Diastolic Diameter PLAX 4.6 cm 4.2 - 5.9 / 3.9 - 5.3 cm LV Systolic Diameter PLAX 3.3 cm IVS Diastolic Thickness 1.4 cm 0.6 - 1.0 / 0.6 - 0.9 cm LVPW Diastolic Thickness 1.5 cm 0.6 - 1.0 / 0.6 - 0.9 cm LV Relative Wall Thickness 0.6 RV Internal Dim ED PLAX 3.0 cm LA Volume 39.0 cm??? 18 - 58 / 22 - 52 cm??? M-MODE Aortic Root Diameter MM 3.2 cm LA Systolic Diameter MM 3.6 cm LA Ao Ratio MM 1.1 AV Cusp Separation MM 1.8 cm DOPPLER AV Peak Velocity 119.0 cm/s AV Peak Gradient 5.7 mmHg AI Peak Velocity 385.3 cm/s AI Peak Gradient 59.4 mmHg AI Pressure Half Time 642.7 ms LVOT Peak Velocity 72.1 cm/s LVOT Peak Gradient 2.1 mmHg MV Area PHT 3.1 cm??? Mitral E Point Velocity 61.0 cm/s Mitral A Point Velocity 87.5 cm/s Mitral E to A Ratio 0.7 MV Deceleration Time 246.9 ms MV E' Velocity 3.0 cm/s Mitral E to MV E' Ratio 20.4 TR Peak Velocity 189.7 cm/s TR Peak Gradient 14.4 mmHg Right Ventricular Systolic Press 19.4 mmHg FINDINGS Left Ventricle Moderately increased left ventricular wall thickness. Normal left ventricular systolic function with no obvious regional wall motion abnormalities. Left ventricular ejection fraction is estimated at 55-60 %. Right Ventricle Normal right ventricular size and function. Right ventricular systolic pressure within normal limits. Right Atrium Normal right atrial size. Left Atrium Normal left atrial size. No evidence for an atrial septal defect. Mitral Valve Structurally normal mitral valve. Mild mitral regurgitation. Aortic Valve Trace to mild aortic regurgitation. No aortic stenosis. Aortic valve sclerosis. Tricuspid Valve Structurally normal tricuspid valve. Mild tricuspid regurgitation. Pulmonic Valve Trace pulmonic regurgitation. Pericardium No pericardial effusion. Aorta Normal size aortic root and proximal ascending aorta. CONCLUSIONS Normal LV systolic function I aortic sclerosis without stenosis mild aortic regurgitation Previewed by: Dr. Kings Woody MD (Electronically Signed) Final Date: 22 January 2022 12:12
--- NOTE | 2022-01-22 13:33 | NM ---
EXAMINATION TYPE: NM stress lexiscan cardiolite DATE OF EXAM: 01/22/2022 COMPARISON: NONE HISTORY: Chest pain TECHNIQUE: After the intravenous administration of 10.2 mCi Tc 99m Sestamibi - Cardiolite resting SP ECT images acquired 45 minutes post injection. The patient received 0.4mg Lexiscan, 22.5 mCi Tc 99m Sestamibi - Stress images obtained [address] injection FINDINGS: Review of stress and rest SPECT images demonstrates decreased perfusion inferoapical wall. Stress-ind uced ischemia is not excluded. Areas of fixed defect inferior wall suggests remote insult. Gated anal ysis shows normal wall motion with an estimated left ventricular ejection fraction of 41 %. IMPRESSION: decreased perfusion inferoapical wall. Stress-induced ischemia is not excluded.
[2022-01-22] MEDS ORDERED: NON FORMULARY DRUG (Sildenafil Citrate [Viagra] 100 MG Tablet) PO PRN (13:54)
[2022-01-22] MEDS ORDERED: NITROGLYCERIN SL TABS 0.4 MG TAB SUBLINGUAL PRN (14:00)
[2022-01-22] MEDS ORDERED: ALPRAZolam 0.25 MG TAB PO PRN (14:00)
[2022-01-22] MEDS ORDERED: ALPRAZolam 0.5 MG TAB PO PRN (14:00)
--- NOTE | 2022-01-22 17:22 | CA ---
Lexiscan Nuclear Stress Test Report Name: Damaso Perkins Exam Date: 01/22/2022 11:59 Exam Location: [facility] Ht (in): 71 Wt (lb): 180 BSA: 2.02 Ordering Phys: Hallie Benitez Referring Phys: YARA, Technologist: Bjorn Leigh Age: 71 Gender: M : 1950 Procedure CPT: Indications: Reflex order-Stress test ICD-10 Codes: Patient History: CHEST PAIN, DIFFICULTY IN BREATHING, HTN, ELEVATED CHOLESTEROL LEVELS, FAMILY HX OF HEART DISEASE, FORMER SMOKER (QUIT 2 YEARS AGO) 0.25 PPD X 40 YEARS, PRIOR [place], PRIOR CATH WITH STENT Medications: Meds past 24 hrs: Pretest Chest Pain: STRESS TEST Lexiscan Protocol Exercise Duration (min:sec): 01:[address] Depressions (mm): Angina Score: Cordova Score: Resting HR (bpm): 57 Peak HR (bpm): 86 Resting BP (mmHg): 147 / 92 Peak BP (mmHg): 147 / 92 MPHR: 150 Target HR: 128 % MPHR: 57 METS: 1.0 Total Dose: Peak Dose: Atropine: Double Product: 55106 BP Response: Stress Termination: INFUSION COMPLETE Stress Symptoms: NO SYMPTOMS Stress Summary: ECG ANALYSIS Resting ECG: Normal sinus rhythm normal axis normal intervals Stress ECG: No ST segment depression with Lexiscan CONCLUSIONS Negative stress test by EKG criteria Cardiolite portion of the stress test will be reported separately Dr. Kings Woody MD (Electronically Signed) Final Date: 22 January 2022 17:21
--- NOTE | 2022-01-22 18:23 | HP ---
HISTORY AND PHYSICAL CHIEF COMPLAINT: Chest pain. HISTORY OF PRESENT ILLNESS: This 71-year-old gentleman with a past medical history of multiple medical problems, including hypertension and hyperlipidemia, was admitted with chest pain. The pain was felt in the anterior part of the chest and was aching in character. Troponins were negative. Stress test was found to be showing some reversible ischemia in the inferoapical area. Ejection fraction was normal. There is no history of any fever, rigor or chills at this time. PAST MEDICAL HISTORY: Past medical history includes hypertension, hyperlipidemia. MEDICATIONS: Reviewed. They include hydrochlorothiazide. Doses and the rest of the medications are reviewed. ALLERGIES: NONE. FAMILY HISTORY: History of cancer in the family. SOCIAL HISTORY: History of smoking. REVIEW OF SYSTEMS: Fourteen-point review of systems negative except as mentioned earlier. PHYSICAL EXAMINATION: Pulse is 88, blood pressure 135/78, respiration 16. HEENT: Conjunctivae normal. NECK: No jugular venous distention. CARDIOVASCULAR: S1, S2 n RESPIRATION: Breath sounds diminished at the bases. No rhonchi. No crackles. ABDOMEN: Soft, nontender. LEGS: No edema. No swelling. NERVOUS SYSTEM: No focal deficit. SKIN: No ulcer, rash, bleeding. JOINTS: No active deforming arthropathy. LABS: Creatinine ntd. Other labs are reviewed. ASSESSMENT: 1. Chest pain; possible unstable angina. 2. Positive stress test. 3. Hypertension. 4. Hyperlipidemia. 5. Multiple medical issues. RECOMMENDATIONS AND DISCUSSION: In this 71-year-old gentleman who presented with multiple complex medical issues, we will monitor the patient closely. Continue the current medications. Closely follow with Cardiology. The patient might need further evaluation, including cardiac catheterization. Prognosis guarded. Further recommendations to follow. MMODL / IJN: [id number] / MTDD
[2022-01-22 20:38] LABS: Appearance,Urine Clear (Clear); Bilirubin,Urine Negative (Negative); Blood,Urine Negative (Negative); Color,Urine Light Yellow; Glucose,Urine (UA) Negative (Negative); Ketones,Urine Negative (Negative); Leukocyte Esterase,Urine Negative (Negative); Nitrite,Urine Negative (Negative); PH, Urine 7.5 (5.0-8.0); Protein,Urine Trace (Negative); Specific Gravity,Urine 1.015 (1.001-1.035); Urobilinogen,Urine <2.0 mg/dL (<2.0)
[2022-01-22] MEDS ORDERED: VENLAFAXINE HCL ER 75 MG CAP PO SCH (21:00)
[2022-01-22] MEDS ORDERED: ATORVASTATIN 20 MG TAB PO SCH (21:00)
[2022-01-22] MEDS: SODIUM CHLORIDE 0.9% 1,000 ML in EMPTY BAG 1 BAG IV SCH (22:24)
[2022-01-23] MEDS ORDERED: ATORVASTATIN 80 MG TAB PO ONE (05:00)
[2022-01-23] MEDS ORDERED: ASPIRIN 325 MG TAB PO ONE (05:00)
[2022-01-23] MEDS ORDERED: HEPARIN SODIUM,PORCINE 10,000 UNIT in SODIUM CHLORIDE 0.9% 1,000 ML IRRIGATION PRN (07:00)
[2022-01-23] MEDS ORDERED: HEPARIN SODIUM,PORCINE 2,500 UNIT in SODIUM CHLORIDE 0.9% 250 ML IRRIGATION PRN (07:00)
[2022-01-23] MEDS: SODIUM CHLORIDE 0.9% 1,000 ML IV SCH ×3 (07:11→17:22)
[2022-01-23 07:51] VITALS: RESP 18
[2022-01-23 08:45] LABS: Basophils # (A) 0.11 X 10*3/uL (0.00-0.10); Basophils % (A) 1.2 %; Eosinophils # (A) 0 X 10*3/uL (0.04-0.35); Eosinophils % (A) 0 %; HCT 47.1 % (39.6-50.0); HGB 15.3 g/dL (13.0-17.0); Immature Grans, Automated 0.4 %; Lymphocytes # (A) 2.92 X 10*3/uL (0.90-5.00); Lymphocytes % (A) 31.4 %; MCH 28.5 pg (27.0-32.0); MCHC 32.5 g/dL (32.0-37.0); MCV 87.9 fL (80.0-97.0); Mean Platelet Volume 10.4 fL (9.5-12.2); Monocytes # (A) 1.03 X 10*3/uL (0.20-1.00); Monocytes % (A) 11.1 %; NRBC Per 100 WBC 0 /100 WBCS (0.0-0.0); Neutrophils % (A) 55.9 %; Platelet Count 372 X 10*3/uL (140-440); RBC 5.36 X 10*6/uL (4.40-5.60); RDW 15.9 % (11.5-14.5)
[2022-01-23 08:54] LABS: African American GFR (CKD) 70.6 (60.0-200.0); Albumin 3.5 g/dL (3.8-4.9); Albumin/Globulin Ratio 1.35 (1.60-3.17); BUN/Creat Ratio 14.83 Ratio (12.00-20.00); Blood Urea Nitrogen 17.8 mg/dL (9.0-27.0); Calcium 8.7 mg/dL (8.7-10.3); Globulin 2.6 g/dL (1.6-3.3); Non-African American GFR(CKD) 60.9 (60.0-200.0); Potassium 4.6 mmol/L (3.5-5.5); Total Bilirubin 0.4 mg/dL (0.30-1.20); Total Protein 6.1 g/dL (6.2-8.2)
[2022-01-23] MEDS ORDERED: ASPIRIN 81 MG PO SCH (09:00)
[2022-01-23] MEDS ORDERED: amLODIPine 10 MG TAB PO SCH (09:00)
[2022-01-23] MEDS: SODIUM CHLORIDE 0.9% 1,000 ML in EMPTY BAG 1 BAG IV SCH (12:52)
[2022-01-23] MEDS ORDERED: VERAPAMIL 2.5 MG/ML 2 ML AMP ONE (13:00)
[2022-01-23] MEDS ORDERED: HEPARIN SODIUM 1,000 UN/ML (10ML VL) ONE (13:00)
[2022-01-23] MEDS ORDERED: MIDAZOLAM 2 MG/2 ML VIAL IV ONE (13:21)
[2022-01-23] MEDS ORDERED: LIDOCAINE 1% INJ 10MG/ML (5 ML VIAL-PF) SQ ONE (13:25)
[2022-01-23] MEDS ORDERED: IV FLUID CONTINUATION 900 ML IV ONE (13:26)
[2022-01-23] MEDS ORDERED: VERAPAMIL SYRINGE (5 MG/10 ML) INTRAARTER ONE (13:27)
[2022-01-23] MEDS ORDERED: HEPARIN SODIUM 1,000 UN/ML (10ML VL) IV ONE (13:28)
[2022-01-23] MEDS ORDERED: IOPAMIDOL-370 125ML BTL INJ ONE (13:40)
[2022-01-23] MEDS ORDERED: RX INFO: IV CONTRAST WAS GIVEN 1 EACH MISC MISCELLANE PRN (13:54)
[2022-01-23] MEDS ORDERED: SODIUM CHLORIDE 0.9% 1,000 ML IV SCH (14:00)
--- NOTE | 2022-01-23 14:02 | P.PCN ---
Date of Procedure: 01/23/22 Operative Findings: CARDIAC CATHETERIZATION PERFORMING PHYSICIAN: Heriberto John MD, RPVI PROCEDURE PERFORMED: 1. Selective right and left coronary angiogram 2. Left heart catheterization INDICATION: This is a 71-year-old gentleman who presented to the hospital with chest discomfort and underwent myocardial perfusion imaging stress test revealed inferior ischemia. In the light of that heart catheterization was advised COMPLICATION: None APPROACH: Right radial artery LEVEL OF SEDATION: Moderate with a sedation length of 15 minutes PROCEDURE DESCRIPTION: After obtaining an informed consent, the patient was brought to cardiac lab tester . Local anesthesia was performed using lidocaine subcutaneously. The right radial artery was cannulated using Seldinger technique, the guidewire passed easily, following that we advanced a 5-Estonian sheath dilator assembly, the wire and dilator were removed and sheath was flushed. Following that, 2 mg of verapamil along with 3000 unit heparin were given. Selective right and left coronary angiogram using a 6-Estonian JR4 and JL 3.5 catheters. Following that we did left heart catheterization using 6-Estonian pigtail catheter. The procedure was completed there was no complication. SELECTIVE CORONARY ANGIOGRAM: The right coronary artery: Is a large caliber vessel and a dominant vessel. The RCA is chronically occluded in the midportion and fills by ipsilateral and contralateral collaterals Left main: Is a short left main but angiographically normal. Bifurcates into LCx and LAD The left circumflex: Is a large caliber vessel nondominant vessel. The proximal LCx gives rise to a large OM branch which has intermediate lesion. The left circumflex continued in the AV groove with a tight lesion but becomes a small caliber vessel. The left anterior descending artery: The LAD itself has mild disease only made it gives rise into a medium sized diagonal branch which has a tight lesion in the proximal portion HEMODYNAMICS: The LVEDP was about 4 mmHg was no significant gradient across aortic valve CONCLUSION: 1. Chronic total occlusion of the RCA which fills by ipsilateral and contralateral collateral 2. Intermediate disease involving the LCx 3. 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
[2022-01-23 14:03] VITALS: TEMP 97.8
[2022-01-23 17:56] VITALS: BP 157/86; PULSE 62
--- NOTE | 2022-01-28 05:57 | P.DS ---
Providers Date of admission: 01/22/22 03:29 Expected date of discharge: 01/23/22 Attending physician: Neptali Argueta Consults: 01/22/22 03:29 Consult Physician Routine Consulting Provider: Manjula Martinez Consult Reason/Comments: cp Do you want consulting provider notified?: Yes Primary care physician: [facility] Hospital Course: Final Diagnosis Chest pain , possible unstable angina Positive stress test Hypertension Hyperlipidemia status post cardiac cath with chronic total occlusion of the RCA, intermediate disease of the LCx and severe disease involving a medium sized diagonal branch Multiple medical issues Discharge disposition Patient is being discharged in a stable condition with guarded prognosis to home. Patient will follow[facility] with [facility] in the outpatient setting upon discharge. Patient is to follow up with cardiology and will be scheduled for outpatient PCI of the PROGRAM DIR RCA with Dr. John and Dr. Harry. Patient to continue aspirin and imdur on discharge along with other cardiac medications. Total time taken is greater than 35 minutes. Hospital course This is a 71-year-old female who was recently admitted with chest pain and was being closely monitored. Patient was evaluated by cardiology and had an extrensive workup including cardiac catheterization which shows chronic total occlusion of the RCA, intermediate disease of the LCx and severe disease involving a medium sized diagonal branch and will require outpatient follow up and possible PCI of the PROGRAM DIR RCA with Dr. John and Dr. Harry. Currently no reports of chest pain, shortness of breath, or palpitations. Patient is afebrile. No reports of nausea or vomiting and patient is tolerating diet. Patient will be discharged home today. Guarded prognosis. On exam vital signs are stable. Cardio S1, S2 are muffled. Respiratory system shows diminished breath sounds at the bases with no wheezing or rhonchi noted. Abdomen is soft and nontender. Nervous system shows no focal deficits. Please refer to medication reconciliation sheet for a list of medications. The impression and plan of care has been dictated by Nithya Ballard, Nurse Practitioner as directed. Dr. Kendall MD I have performed a history and examination and MDM of this patient, discussed the same with the dictator, and agree with the dictator's assessment and plan as written ,documented as a scribe. Based on total visit time, I have performed more than 50% of the visit. Patient Condition at Discharge: Good Plan - Discharge Summary Discharge Rx Participant: No New Discharge Prescriptions: New Aspirin 81 mg PO DAILY 30 Days #30 tab Isosorbide Mononitrate ER [Imdur] 30 mg PO DAILY 30 Days #30 tab Nitroglycerin Sl Tabs [Nitrostat] 0.4 mg SUBLINGUAL Q5M PRN 30 Days #30 tab PRN Reason: Chest Pain Continue Venlafaxine HCl [Effexor XR] 225 mg PO HS Sildenafil Citrate [Viagra] 50 mg PO DAILY PRN PRN Reason: E.D. Clopidogrel [Plavix] 75 mg PO DAILY Atorvastatin Calcium [Lipitor] 20 mg PO HS amLODIPine [Norvasc] 10 mg PO DAILY hydroCHLOROthiazide 12.5 mg PO DAILY Lidocaine 5% Patch [Lidoderm 5% Patch] 1 patch TOPICAL DAILY Discharge Medication List Atorvastatin Calcium [Lipitor] 20 mg PO HS 12/10/20 [History] Clopidogrel [Plavix] 75 mg PO DAILY 12/10/20 [History] Sildenafil Citrate [Viagra] 50 mg PO DAILY PRN 12/10/20 [History] Venlafaxine HCl [Effexor XR] 225 mg PO HS 12/10/20 [History] amLODIPine [Norvasc] 10 mg PO DAILY 07/07/21 [History] hydroCHLOROthiazide 12.5 mg PO DAILY 07/07/21 [History] Lidocaine 5% Patch [Lidoderm 5% Patch] 1 patch TOPICAL DAILY 01/22/22 [History] Aspirin 81 mg PO DAILY 30 Days #30 tab 01/23/22 [Rx] Isosorbide Mononitrate ER [Imdur] 30 mg PO DAILY 30 Days #30 tab 01/23/22 [Rx] Nitroglycerin Sl Tabs [Nitrostat] 0.4 mg SUBLINGUAL Q5M PRN 30 Days #30 tab 0 01/23/22 [Rx] Follow up Appointment(s)/Referral(s): [facility],Clinic [Primary Care Provider] - 1-2 days Kings Woody MD [STAFF PHYSICIAN] - 1 Week Patient Instructions/Handouts: *Surgery [facility] - After Heart Catheterization - Social Studies Teacher Instructions, After Radial Heart Catheterization (GEN) Activity/Diet/Wound Care/Special Instructions: Activity Limited until follow-up Follow-up with primary care provider on discharge Follow-up with cardiology in one week Plan for outpatient stenting to be scheduled and arranged after speaking with cardiology next week Continue taking medications as prescribed Continue heart healthy diet Discharge Disposition: HOME SELF-CARE
== END 2022-01-23 19:37 | disposition home or self-care (01) ==
LOC: EC 01:38 → 6NMEDSUR 03:29
PROVIDERS: ADMIT Hospitalist; ATTEND Hospitalist
DX: R07.89 Other chest pain (principal); R94.39 Abnormal result of other cardiovascular function study; I10 Essential (primary) hypertension; E78.5 Hyperlipidemia, unspecified; R53.1 Weakness; I25.10 Atherosclerotic heart disease of native coronary artery without angina pectoris; I25.82 Chronic total occlusion of coronary artery; I70.0 Atherosclerosis of aorta; E78.00 Pure hypercholesterolemia, unspecified; F17.210 Nicotine dependence, cigarettes, uncomplicated; I25.2 Old myocardial infarction; R06.02 Shortness of breath; L65.9 Nonscarring hair loss, unspecified; H93.19 Tinnitus, unspecified ear; F43.10 Post-traumatic stress disorder, unspecified; F32.A Depression, unspecified; Z86.61 Personal history of infections of the central nervous system; Z95.5 Presence of coronary angioplasty implant and graft; Z90.81 Acquired absence of spleen; Z79.82 Long term (current) use of aspirin; Z79.899 Other long term (current) drug therapy; Z79.02 Long term (current) use of antithrombotics/antiplatelets; Z80.9 Family history of malignant neoplasm, unspecified; Z82.49 Family history of ischemic heart disease and other diseases of the circulatory system
CPT/HCPCS: 96374; 96375; 99285; 36415; 93005; 93017; 93306; 93458; 83880; 80053 ×2; 83690; 83735; 84484; 85025 ×2; 85610; 85730; 81003; 71045; 78452; G0378 ×2; C1769 ×2; C1894; A9500; J2250; J2270; J0360; J2001; J1644; J2785; Q9967

== ENCOUNTER → 2022-03-02 | Outpatient (CLI) | payer OTHER, MEDICARE ==
[2022-03-02 17:53] LABS: HCT 49.1 % (39.6-50.0); HGB 16.3 g/dL (13.0-17.0); MCH 29.4 pg (27.0-32.0); MCHC 33.2 g/dL (32.0-37.0); MCV 88.6 fL (80.0-97.0); Mean Platelet Volume 10.1 fL (9.5-12.2); NRBC Per 100 WBC 0 /100 WBCS (0.0-0.0); Platelet Count 377 X 10*3/uL (140-440); RBC 5.54 X 10*6/uL (4.40-5.60); RDW 15.7 % (11.5-14.5)
[2022-03-02 18:03] LABS: African American GFR (CKD) 59.6 (60.0-200.0); Anion Gap 10.7 mmol/L (10.00-18.00); Blood Urea Nitrogen 15.8 mg/dL (9.0-27.0); Carbon Dioxide 26.1 mmol/L (20.0-27.5); Non-African American GFR(CKD) 51.4 (60.0-200.0); Potassium 4.7 mmol/L (3.5-5.5)
== END | disposition home or self-care (01) ==
LOC: LABPAT 13:49
PROVIDERS: ATTEND Internal Medicine Interventional Cardiology
DX: Z01.812 Encounter for preprocedural laboratory examination (principal); I25.10 Atherosclerotic heart disease of native coronary artery without angina pectoris
CPT/HCPCS: 80051; 82565; 84520; 85027

== ENCOUNTER 2022-03-03 11:50 | Day surgery (SDC) | payer MEDICARE, OTHER ==
[2022-02-27 12:25] VITALS: BMI 25.5
[~2022-03-03 11:50] MED LIST changes: +ALPRAZolam 0.25 MG TAB PO PRN; +ALPRAZolam 0.5 MG TAB PO PRN; +ASPIRIN 325 MG TAB PO STA; +ATORVASTATIN 80 MG TAB PO STA; +HEPARIN SODIUM,PORCINE 10,000 UNIT in SODIUM CHLORIDE 0.9% 1,000 ML IRRIGATION PRN; +HEPARIN SODIUM,PORCINE 2,500 UNIT in SODIUM CHLORIDE 0.9% 250 ML IRRIGATION PRN; -LACTATED RINGERS 1,000 ML IV SCH; -LIDOCAINE 1% 20 ML VIAL (10MG/ML) FOR IV START INTRADERMA PRN; +NITROGLYCERIN SL TABS 0.4 MG TAB SUBLINGUAL PRN
[2022-03-03] MEDS: SODIUM CHLORIDE 0.9% 1,000 ML in EMPTY BAG 1 BAG IV SCH ×2 (12:34→18:06)
[2022-03-03] MEDS ORDERED: VERAPAMIL 2.5 MG/ML 2 ML AMP ONE (14:35)
[2022-03-03] MEDS ORDERED: HEPARIN SODIUM 1,000 UN/ML (10ML VL) ONE (14:54)
[2022-03-03] MEDS ORDERED: fentaNYL (PF) 50 MCG/ML 2 ML AMP ONE (14:54)
[2022-03-03] MEDS: MIDAZOLAM 2 MG/2 ML VIAL IV ONE ×2 (15:01→17:42)
[2022-03-03] MEDS ORDERED: fentaNYL (PF) 50 MCG/ML 2 ML AMP IV ONE (15:01)
[2022-03-03] MEDS: LIDOCAINE 1% INJ 10MG/ML (30 ML VIAL-PF) SQ ONE ×4 (15:01→15:07)
[2022-03-03] MEDS ORDERED: VERAPAMIL SYRINGE (5 MG/10 ML) INTRAARTER ONE (15:06)
[2022-03-03] MEDS: HEPARIN SODIUM 1,000 UN/ML (10ML VL) IV ONE ×6 (15:10→17:33)
[2022-03-03] MEDS ORDERED: IOPAMIDOL-370 125ML BTL INJ ONE ×2 (15:45→17:52)
[2022-03-03] MEDS ORDERED: HEPARIN SODIUM,PORCINE 30 ML 30 ML ONE (16:02)
[2022-03-03] MEDS ORDERED: SODIUM CHLORIDE 0.9% 1,000 ML IV ONE (17:35)
[2022-03-03] MEDS ORDERED: IOPAMIDOL-370 100ML BTL INJ ONE (17:52)
[2022-03-03] MEDS ORDERED: MORPHINE SULFATE 4 MG/ML SYRINGE IVP PRN (18:47)
[2022-03-03] MEDS ORDERED: NITROGLYCERIN SL TABS 0.4 MG TAB SUBLINGUAL PRN ×2 (18:48→22:23)
[2022-03-03 19:31] LABS: Basophils # (A) 0.2 k/uL (0-0.2); Basophils % (A) 1 %; Eosinophils % (A) 0 %; HCT 50.3 % (39.0-53.0); HGB 16.5 gm/dL (13.0-17.5); Lymphocytes % (A) 24 %; MCH 29.3 pg (25.0-35.0); MCHC 32.8 g/dL (31.0-37.0); MCV 89.3 fL (80.0-100.0); Mean Platelet Volume 7.9; Monocytes # (A) 0.9 k/uL (0-1.0); Monocytes % (A) 7 %; Neutrophils % (A) 65 %; Platelet Count 334 k/uL (150-450); RBC 5.63 m/uL (4.30-5.90); RDW 14.7 % (11.5-15.5); WBC 12.3 k/uL (3.8-10.6)
[2022-03-03 20:01] LABS: Calcium 9.3 mg/dL (8.4-10.2); Potassium 4.4 mmol/L (3.5-5.1)
[2022-03-03 20:23] VITALS: RESP 16
[2022-03-03] MEDS ORDERED: ATORVASTATIN 20 MG TAB PO SCH (21:00)
[2022-03-03] MEDS ORDERED: VENLAFAXINE HCL ER 75 MG CAP PO SCH (21:00)
--- NOTE | 2022-03-03 22:19 | P.PRCINT ---
Percutaneous Coronary Int. - Percutaneous Coronary Intervention Percutaneous Coronary Intervention: PROCEDURES PERFORMED: Bilateral coronary angiography, PCI of COST ESTIMATING CLERK proximal to distal RCA with overlapping 3.0 x 23mm, 3.25 x 38mm and 3.5 x 12mm Xience SHAAN INDICATION: CAD with COST ESTIMATING CLERK RCA, NYHA class 3 symptoms with continued dyspnea on exertion despite maximal medical therapy, CKD HPI: Patient is a pleasant 71 year old male with history of COST ESTIMATING CLERK of RCA well collaterallized with left to right collaterals. He was having atypical chest pain symptoms which had improved and was placed on medical therapy. He still endorses NYHA class 3 symptoms of dyspnea on exertion which is felt to be his angina despite medical therapy and therefore recommended to undergo COST ESTIMATING CLERK PCI. Operators: DO Manjula Christensen MD PROCEDURE: After the risks, benefits and alternatives of the above mentioned procedure explained in detail with the patient, informed consent was obtained. Patient was taken to the catheterization lab and prepped and draped in usual fashion. A 6Fr sheath was placed in the right radial artery using modified Seldinger technique and a 8Fr sheath was placed in the right femoral artery using micropuncture technique. A 6-Turkish CLS 3.5 guide from the radial approach was used to engage the left main. There was an extreme amount of difficulty of having an 8Fr guide catheter sit properly with a very anterior takeoff. There was some success with an 8Fr AL 0.75 guide and dual injections were performed with short COST ESTIMATING CLERK segment. Attempts were made at wiring into the RCA to allow better engagement and were successful however unable to advance any Guideliner or microcatheter. Therefore attempted an 8Fr AL 1.0, AR 1, FR4 and RBU which were all unsuccessful with catheters falling off of a ridge of the STJ. Given better success with 6Fr catheters from the radial approach and nearing contrast theshold, the decision was made to use a 6Fr FR 4 guide catheter from the radial approach which was able to engage the RCA. Next a 0.014 whisper wire with a Finecross microcatheter and a Guideliner were used to wire the COST ESTIMATING CLERK in an antegrade approach. Next the microcather was advanced and exchanged out for a 0.014 long BMW wire. Next serial balloon dilations were performed with a 1.0 Sapphire balloon, 2.25 NC balloon, 2.5, 3.0 balloons. After much difficulty given poor support and angulation we were able to suck our Guideliner into the mid RCA to facilitate delivery of the stents. A 3.0 x 23mm Xience SHAAN was placed distally just proximal to the crux. Next an overlapping 3.25 x 38mm Xience SHAAN was placed in the middle. Finally a 3.5 x 12mm Xience SHAAN was placed at the proximal RCA. The overlap was post dilated with the 3.5 balloon. We attempted to use IVUS however IVUS not working correctly. Final angiograms were performed. Preintervention there was 100% mid RCA stenosis with diffuse 50-70% stenosis from the proximal to distal RCA with MARIANNE 0 flow. Post intervention there was MARIANNE 3 flow and 0% stenosis. A right femoral angiogram showed anatomy suitable for closure and an 8Fr Angioseal was placed with hemostasis achieved. The right radial sheath was removed and a TR band was placed with hemostasis achieved. The patient tolerated the procedure well. Patient was transported back to the post catheterization holding area in stable condition. Conscious Sedation: Patient was monitored under the direct supervision of vision of myself for conscious sedation using Versed and fentanyl for a total duration of 162 minutes HEMODYNAMICS: Aortic: 139/73 FINAL IMPRESSION: 1. CAD with 100% COST ESTIMATING CLERK mid RCA s/p PCI of COST ESTIMATING CLERK proximal to distal RCA with overlapping 3.0 x 23mm, 3.25 x 38mm and 3.5 x 12mm Xience SHAAN PLAN: 1. Aggressive risk factor modification per most recent ACC/AHA guidelines. 2. Continue with dual antiplatelets with aspirin and Plavix for minimum of 6 months.
[2022-03-03] MEDS ORDERED: ATROPINE SULFATE 0.1 MG/ML 10ML SYRINGE IV PRN (22:23)
[2022-03-03] MEDS ORDERED: RX INFO: IV CONTRAST WAS GIVEN 1 EACH MISC MISCELLANE PRN (22:23)
[2022-03-03] MEDS ORDERED: MAG HYDROX/AL HYDROX/SIMETH 30 ML CUP PO PRN (22:23)
[2022-03-03] MEDS ORDERED: ZOLPIDEM 5 MG TAB PO PRN (22:23)
--- NOTE | 2022-03-03 22:27 | P.PN ---
Progress Note - Text Contraindication to BBlocker secondary to bradycardia.
[2022-03-03] MEDS ORDERED: SODIUM CHLORIDE 0.9% 1,000 ML in EMPTY BAG 1 BAG IV SCH (22:30)
[2022-03-04] MEDS: SODIUM CHLORIDE 0.9% 1,000 ML in EMPTY BAG 1 BAG IV SCH (05:56)
[2022-03-04 08:29] VITALS: BP 139/84; PULSE 65; TEMP 98.2
[2022-03-04] MEDS ORDERED: amLODIPine 10 MG TAB PO SCH (09:00)
[2022-03-04] MEDS ORDERED: ASPIRIN 81 MG PO SCH (09:00)
[2022-03-04] MEDS ORDERED: ISOSORBIDE MONONITRATE ER 30 MG TAB.ER.24H PO SCH (09:00)
[2022-03-04] MEDS ORDERED: CLOPIDOGREL 75 MG TAB PO SCH (09:00)
[2022-03-04] MEDS ORDERED: hydroCHLOROthiazide 12.5 MG CAP PO SCH (09:00)
--- NOTE | 2022-03-04 09:51 | P.PN ---
Subjective Progress Note Date: 03/04/22 PROGRESS NOTE The patient is a 71-year-old male with a history of hypertension, hyperlipidemia and CAD who has been complaining of dyspnea on exertion, was found to have chronic total occlusion of the mid RCA in a long diffuse area of disease he underwent stenting of that vessel, using 3 stents. He is feeling well this morning, he denies any chest discomfort, dizziness or palpitations. He is in sinus mechanism. Medications: Aspirin, amlodipine 10 mg daily, Plavix 75 mg daily, isosorbide mononitrate 30 mg daily, hydrochlorothiazide 12-1/2 mg daily, Venlafaxine PHYSICAL EXAMINATION: Blood pressure 139/84 heart rate 65 LUNGS: Clear to auscultation HEART: Regular rate and rhythm, S1, S2. No S3. systolic ejection murmur ABDOMEN: Soft, nontender, no organomegaly EXTREMETIES: Right groin no hematoma, right radial pulse intact LAB: EKG shows no acute changes IMPRESSION: 1. Status post stenting of chronic total occlusion of the RCA 2. History of hypertension 3. History of hyperlipidemia PLAN: 1. Discharge home today 2. And follow-up with Dr. Rodriguez next week 3. No beta lesa because of the bradycardia 4. Continued dual antiplatelets treatment with aspirin and Plavix for 6 months Objective - Vital Signs Vital signs: Vital Signs Temp 98.2 F 03/04/22 08:29 Pulse 65 03/04/22 08:29 Resp 16 03/04/22 08:29 BP 139/84 03/04/22 08:29 Pulse Ox 99 03/04/22 08:29 FiO2 Intake & Output 03/03/22 03/04/22 03/04/22 18:59 06:59 18:59 Intake Total 875 Output Total 750 400 450 Balance 125 -400 -450 Weight 83.007 kg Intake: IV 875 Output: Urine 750 400 450 Other: Voiding Method Urinal - Labs CBC & Chem 7: 03/03/22 19:04 03/03/22 19:04 Labs: Abnormal Lab Results - Last 24 Hours (Table) 03/03/22 03/03/22 Range/Units 19:04 19:04 WBC 12.3 H (3.8-10.6) k/uL Neutrophils # 8.0 H (1.3-7.7) k/uL Sodium 136 L (137-145) mmol/L Glucose 103 H (74-99) mg/dL
== END 2022-03-04 11:42 | disposition home or self-care (01) ==
LOC: CATHCVL 11:50 → 3SCARD 17:43 → CATHCVL 03-04 11:42
PROVIDERS: ATTEND Internal Medicine Interventional Cardiology
DX: I25.10 Atherosclerotic heart disease of native coronary artery without angina pectoris (principal); I10 Essential (primary) hypertension; E78.5 Hyperlipidemia, unspecified; I25.82 Chronic total occlusion of coronary artery; Z20.822 Contact with and (suspected) exposure to COVID-19
CPT/HCPCS: 80048; 82565; 85025; 87635; C9607; C1769 ×8; C1760; C1887 ×9; C1894 ×2; C1725 ×5; C1753; C1874 ×3; C1751; J2250; J2270; J2001; J3010; J1644; Q9967 ×2

== ENCOUNTER 2022-03-09 07:17 | Observation (INO) | payer OTHER, MEDICARE ==
[2022-03-09] MEDS ORDERED: NITROGLYCERIN OINT 1 INCH/GM PACKET TOPICAL STA (07:46)
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
[2022-03-09 07:56] LABS: Basophils # (A) 0.1 k/uL (0-0.2); Basophils % (A) 1 %; Eosinophils % (A) 0 %; HCT 46.5 % (39.0-53.0); HGB 15.3 gm/dL (13.0-17.5); Lymphocytes # (A) 2.8 k/uL (1.0-4.8); Lymphocytes % (A) 28 %; MCH 29.4 pg (25.0-35.0); MCV 89.1 fL (80.0-100.0); Mean Platelet Volume 7.8; Monocytes # (A) 0.8 k/uL (0-1.0); Monocytes % (A) 8 %; Neutrophils # (A) 5.9 k/uL (1.3-7.7); Neutrophils % (A) 60 %; Platelet Count 389 k/uL (150-450); Poikilocytosis Slight; RBC 5.22 m/uL (4.30-5.90); WBC 9.9 k/uL (3.8-10.6)
--- NOTE | 2022-03-09 08:02 | XR ---
EXAMINATION TYPE: XR chest 2V DATE OF EXAM: 03/09/2022 COMPARISON: 01/22/2022 HISTORY: 71-year-old male with chest pain TECHNIQUE: Frontal and lateral views FINDINGS: Ongoing asymmetric elevation left hemidiaphragm. Overall low lung volumes, crowded vascular markings. Heart is upper limits of normal in size. No manjeet consolidation or pleural effusion seen. IMPRESSION: 1. Ongoing asymmetric elevation left hemidiaphragm. If concern for hemidiaphragmatic paralysis, a flu oroscopic sniff test could be performed. 2. Hypoventilatory changes. No definite acute process.
[2022-03-09] MEDS ORDERED: ASPIRIN 81 MG PO STA (08:03)
[2022-03-09 08:04] LABS: Albumin 4.2 g/dL (3.5-5.0); Calcium 9.7 mg/dL (8.4-10.2); INR 0.8 (<1.2); Partial Thromboplastin Time 22.2 sec (22.0-30.0); Potassium 4.1 mmol/L (3.5-5.1); Prothrombin Time 9.5 sec (9.0-12.0); Total Bilirubin 0.6 mg/dL (0.2-1.3); Total Protein 7.6 g/dL (6.3-8.2)
[2022-03-09] MEDS ORDERED: MORPHINE SULFATE 4 MG/ML SYRINGE IV STA (08:09)
[2022-03-09 08:29] LABS: Creatine Kinase MB 2.2 ng/mL (0.0-2.4); Troponin I <0.012 ng/mL (0.000-0.034)
[2022-03-09] MEDS ORDERED: NITROGLYCERIN SL TABS 0.4 MG TAB SUBLINGUAL PRN (09:14)
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
[2022-03-09] MEDS: HEPARIN SODIUM,PORCINE/PF 5,000 UNIT/0.5 ML SYRINGE SQ SCH ×2 (16:23→23:57)
[2022-03-09] MEDS ORDERED: ATORVASTATIN 20 MG TAB PO SCH (21:00)
[2022-03-09] MEDS ORDERED: VENLAFAXINE HCL ER 75 MG CAP PO SCH (21:00)
--- NOTE | 2022-03-10 06:57 | P.PN ---
Subjective Progress Note Date: 03/10/22 Principal diagnosis: Chest pain The patient is a pleasant 71-year-old gentleman with recent percutaneous coronary intervention of chronically occluded RCA as well as hypertension and dyslipidemia presented to the emergency room was chest discomfort and ruled out for acute coronary event. He was seen this morning. He is chest pain-free. I asked the patient to get up and around and let us know if he develop any chest discomfort. Meanwhile I'm going to look up his echocardiogram and assess for any pericardial effusion and if the echo looks good and he is asymptomatic he potentially can be discharged home on dual antiplatelet therapy along with high intensity statin along with anti-ischemic medication including oral nitrate. Objective - Vital Signs Vital signs: Vital Signs Temp 97.5 F L 03/10/22 01:44 Pulse 58 L 03/10/22 01:44 Resp 16 03/10/22 01:44 BP 127/78 03/10/22 01:44 Pulse Ox 99 03/10/22 01:44 FiO2 Intake & Output 03/09/22 03/09/22 03/10/22 06:59 18:59 06:59 Intake Total 118 Output Total 400 Balance -282 Weight 79.379 kg Intake: Oral 118 Output: Urine 400 Other: Voiding Method Toilet # Voids 2 - Constitutional General appearance: Present: no acute distress - Respiratory Respiratory: bilateral: CTA - Cardiovascular Rhythm: regular Heart sounds: normal: S1, S2 - Labs CBC & Chem 7: 03/09/22 07:41 03/09/22 07:41 Labs: Abnormal Lab Results - Last 24 Hours (Table) 03/09/22 Range/Units 07:41 Creatinine 1.30 H (0.66-1.25) mg/dL Glucose 114 H (74-99) mg/dL Assessment and Plan Assessment: Assessment #1 chest discomfort which has resolved #2 status post PCI 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 An echo was done and will follow-up with Dr. white #3 possible discharge if he remains asymptomatic and the echo looks normal
[2022-03-10 07:17] VITALS: BP 126/82; PULSE 65; RESP 18; TEMP 97.7
[2022-03-10] MEDS ORDERED: ASPIRIN 81 MG PO SCH (09:00)
[2022-03-10] MEDS ORDERED: amLODIPine 10 MG TAB PO SCH (09:00)
[2022-03-10] MEDS ORDERED: ASPIRIN 325 MG TAB PO SCH (09:00)
[2022-03-10] MEDS ORDERED: CLOPIDOGREL 75 MG TAB PO SCH (09:00)
[2022-03-10] MEDS ORDERED: ISOSORBIDE MONONITRATE ER 30 MG TAB.ER.24H PO SCH (09:00)
[2022-03-10] MEDS: HEPARIN SODIUM,PORCINE/PF 5,000 UNIT/0.5 ML SYRINGE SQ SCH (09:07)
--- NOTE | 2022-03-10 09:15 | FL ---
EXAMINATION TYPE: FL sniff test without CXR DATE OF EXAM: 03/10/2022 8:43 AM CLINICAL INDICATION:Male, 71 years old with history of LT DIAPHRAGM PARALYSIS; COMPARISON: Chest radiograph 03/09/2022 TECHNIQUE: With the patient standing, fluoroscopy of the right and left hemidiaphragm was observed du ring normal resting respiration as well as deep inspiration, deep expiration, and "sniffing." Fluoroscopic time: 30 seconds Fluoroscopic images: None Radiographs taken: 6 FINDINGS: Associate Loan Officer film demonstrates: no focal consolidation, pneumothorax, or pleural effusions. The cardiomedias tinal silhouette is within normal limits. There is elevation of the left hemidiaphragm. This is stabl e and compared to previous chest radiograph. The left diaphragm minimally contracts during inspiration. There is decreased excursion demonstrated of the left hemidiaphragm. The right diaphragm contracts during inspiration. Both hemidiaphragms move together. Normal excursion is demonstrated of the right hemidiaphragm. IMPRESSION: Decreased excursion of the left diaphragm compared to the right. Correlate for left phrenic nerve inj ury.
[2022-03-10 09:22] LABS: Chol/HDL Ratio 3.19 Ratio; LDL Cholesterol,Calculated 75.2 mg/dL (0.0-131.0)
--- NOTE | 2022-03-10 09:45 | CA ---
Transthoracic Echo Report Name: Damaso Perkins Age: 71 Gender: M : 1950 Exam Date: 03/09/2022 13:32 Exam Location: [place] [facility] Ht (in): 71 Wt (lb): 175 Ordering Physician: Heriberto John MD ([id number]) Attending/Referring Phys: Certified Technician Specialist Selina Haro RDCS Procedure CPT: Indications: CP Cardiac Hx: Technical Quality: Fair Contrast 1: Total Dose (mL): Contrast 2: Total Dose (mL): MEASUREMENTS (Male / Female) Normal Values 2D ECHO LV Diastolic Diameter PLAX 2.9 cm 4.2 - 5.9 / 3.9 - 5.3 cm LV Systolic Diameter PLAX 1.5 cm IVS Diastolic Thickness 1.2 cm 0.6 - 1.0 / 0.6 - 0.9 cm LVPW Diastolic Thickness 1.3 cm 0.6 - 1.0 / 0.6 - 0.9 cm LV Relative Wall Thickness 0.9 RV Internal Dim ED PLAX 3.1 cm LA Volume 40.7 cm??? 18 - 58 / 22 - 52 cm??? M-MODE Aortic Root Diameter MM 3.5 cm LA Systolic Diameter MM 2.5 cm LA Ao Ratio MM 0.7 AV Cusp Separation MM 2.0 cm DOPPLER AV Peak Velocity 97.3 cm/s AV Peak Gradient 3.8 mmHg LVOT Peak Velocity 76.5 cm/s LVOT Peak Gradient 2.3 mmHg MV Area PHT 2.2 cm??? Mitral E Point Velocity 43.1 cm/s Mitral A Point Velocity 68.5 cm/s Mitral E to A Ratio 0.6 MV Deceleration Time 341.5 ms MV E' Velocity 4.1 cm/s Mitral E to MV E' Ratio 10.5 FINDINGS Left Ventricle Mildly increased septal wall thickness. Normal left ventricular systolic function with no obvious regional wall motion abnormalities. Left ventricular ejection fraction is estimated at 55-60 %. Right Ventricle Normal right ventricular size and function. Right ventricular systolic pressure within normal limits. Right Atrium Normal right atrial size. Left Atrium Normal left atrial size. No evidence for an atrial septal defect. Mitral Valve Structurally normal mitral valve. No mitral stenosis, regurgitation or prolapse. Aortic Valve No aortic valve stenosis or regurgitation. Tricuspid Valve Structurally normal tricuspid valve. Mild tricuspid regurgitation. Pulmonic Valve Structurally normal pulmonic valve. Pericardium No pericardial effusion. Aorta Normal size aortic root and proximal ascending aorta. CONCLUSIONS Normal left ventricular dimension and systolic function No evidence of pericardial effusion Previewed by: Dr. Heriberto John MD (Electronically Signed) Final Date: 10 March 2022 09:45
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
== END 2022-03-10 12:33 | disposition home or self-care (01) ==
LOC: EC 07:17 → 6NMEDSUR 09:27
PROVIDERS: ADMIT Internal Medicine; ATTEND Internal Medicine
DX: R07.89 Other chest pain (principal); I25.10 Atherosclerotic heart disease of native coronary artery without angina pectoris; I10 Essential (primary) hypertension; E78.5 Hyperlipidemia, unspecified; I25.2 Old myocardial infarction; F32.A Depression, unspecified; I07.1 Rheumatic tricuspid insufficiency; F43.10 Post-traumatic stress disorder, unspecified; F17.200 Nicotine dependence, unspecified, uncomplicated; Z79.899 Other long term (current) drug therapy; Z79.02 Long term (current) use of antithrombotics/antiplatelets; Z86.61 Personal history of infections of the central nervous system; Z90.81 Acquired absence of spleen; Z80.9 Family history of malignant neoplasm, unspecified; Z95.5 Presence of coronary angioplasty implant and graft; Z79.82 Long term (current) use of aspirin
CPT/HCPCS: 96372 ×3; 96374; 99285; 36415; 93005; 93306; 83880; 80061; 80053; 82553; 83735; 84484; 85025; 85610; 85730; 76000; 71046; G0378 ×2; J2270; J1644 ×2

== ENCOUNTER 2023-01-13 17:01 | Emergency (ER) | payer OTHER, MEDICARE ==
[2023-01-13 17:10] VITALS: RESP 18
[2023-01-13] MEDS ORDERED: LIDOCAINE 1% INJ 10MG/ML (10 ML MDV) SQ STA (17:32)
[2023-01-13] MEDS ORDERED: HYDROcodone/APAP 5-325MG 1 EACH TAB PO STA (17:32)
[2023-01-13] MEDS ORDERED: IBUPROFEN 400 MG TAB PO STA (17:32)
--- NOTE | 2023-01-13 19:52 | XR ---
EXAMINATION TYPE: XR tibia fibula RT DATE OF EXAM: 01/13/2023 7:42 PM INDICATION: Patient age:Male; 72 years old; Reason for study: leg injury; COMPARISON: None TECHNIQUE: The right tibia/fibula was examined in AP and lateral projections. FINDINGS: Laceration to the distal tibia anteriorly. No radiopaque foreign bodies. No fracture. No ev idence of any acute osseous pathology, joint dislocation, or soft tissue swelling is noted. IMPRESSION: 1. No evidence of acute fracture. 2. Laceration without radiopaque foreign bodies.
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
[2023-01-13 22:15] VITALS: BP 151/96; PULSE 81; TEMP 98.1
== END 2023-01-13 22:14 | disposition home or self-care (01) ==
LOC: EC 17:01
DX: S81.811A Laceration without foreign body, right lower leg, initial encounter (principal); E78.5 Hyperlipidemia, unspecified; I10 Essential (primary) hypertension; I25.2 Old myocardial infarction; F32.A Depression, unspecified; F17.200 Nicotine dependence, unspecified, uncomplicated; Z79.02 Long term (current) use of antithrombotics/antiplatelets; Z79.899 Other long term (current) drug therapy; W26.8XXA Contact with other sharp object(s), not elsewhere classified, initial encounter
CPT/HCPCS: 73590; 99284; 12002; J2001

== ENCOUNTER 2023-01-28 15:01 | Emergency (ER) | payer OTHER, MEDICARE ==
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
[2023-01-28 16:58] VITALS: BP 120/87; PULSE 67; RESP 18; TEMP 98.4
== END 2023-01-28 17:00 | disposition home or self-care (01) ==
LOC: EC 15:01
DX: S81.801A Unspecified open wound, right lower leg, initial encounter (principal); I10 Essential (primary) hypertension; I25.2 Old myocardial infarction; E78.5 Hyperlipidemia, unspecified; F32.A Depression, unspecified; F17.200 Nicotine dependence, unspecified, uncomplicated; W22.8XXA Striking against or struck by other objects, initial encounter; Z79.02 Long term (current) use of antithrombotics/antiplatelets; Z79.899 Other long term (current) drug therapy
CPT/HCPCS: 99283

== ENCOUNTER → 2024-07-27 | Outpatient (CLI) | payer OTHER, MEDICARE ==
[2024-07-27 21:08] LABS: Blood Urea Nitrogen 21.6 mg/dL (9.0-27.0); Calcium 9.3 mg/dL (8.7-10.3); Carbon Dioxide 25.4 mmol/L (21.6-31.8); Chloride 104 mmol/L (96-109); Glucose 105 mg/dL (70-110); Potassium 4.6 mmol/L (3.5-5.5); Sodium 141 mmol/L (135-145)
[2024-07-27 21:30] LABS: NT-Pro-B-Type Natriuretic Pept 146 pg/mL (0-125)
== END | disposition home or self-care (01) ==
LOC: LABWHC1 15:20
PROVIDERS: ATTEND Internal Medicine Cardiovascular Disease
DX: R60.9 Edema, unspecified (principal)
CPT/HCPCS: 36415; 80048; 83880